=== PATIENT | female | born 1930 | race Caucasian/White ===

== ENCOUNTER 2019-03-24 09:32 | Inpatient (IN) | payer MEDICARE ==
[2019-03-24] MEDS ORDERED: Diltiazem 125 MG/25 ML ONE (09:52)
[2019-03-24] MEDS ORDERED: Diltiazem 125 MG in Sodium Chloride 0.9% 100 ML IVPB SCH ×2 (10:30→17:16)
--- NOTE | 2019-03-24 10:33 | RAD ---
XR Chest 1 View Portable HISTORY: Syncope. A. fib. COMPARISON: 09/19/2016 study FINDINGS: Heart size appears slightly enlarged. There are atherosclerotic changes of aorta. The lungs are clear of infiltrates. There are no signs of failure. IMPRESSION: Borderline to minimal cardiomegaly.
[2019-03-24 10:36] LABS: #Eosinphils 0.1 thou/uL (0.0-0.7); #Lymphocytes 2.3 thou/uL (1.20-3.40); #Monocytes 0.7 thou/uL (0.11-0.59); #Neutrophils 8.3 thou/uL (1.40-6.50); %Basophils 0.3 % (0.0-1.0); %Eosinophils 1.2 % (0.0-10.0); %Lymphocytes 19.7 % (21.0-51.0); %Monocytes 6.2 % (0.0-10.0); %Neutrophils 72.6 % (42.0-75.0); Hemoglobin 11.8 g/dL (12.0-16.0); Mean Corpuscular HGB CONC 34.1 g/dL (32.0-36.0); Mean Corpuscular Volume 96.8 fL (78.0-98.0); Mean Platelet Volume 8.2 fL (7.4-10.4); Platelet Count 135 thou/uL (130-400); RBC Distribution Width 13.7 % (11.5-14.5); Red Blood Cell (RBC) Count 3.56 mill/uL (4.20-5.40); White Blood Cell (WBC) Count 11.5 thou/uL (4.8-10.8)
[2019-03-24 10:40] LABS: Bilirubin Negative (Negative); Blood, Urine Negative (Negative); Clarity Clear (Clear); Glucose, Urine (Dipstick) 100 mg/dL (Negative); Leukocyte Small (Negative); Nitrite Negative (Negative); Protein, Urine (Dipstick) Negative (Neg-Trace); Urobilinogen 0.2 mg/dL (0.2-1.0)
[2019-03-24 10:41] LABS: Other Microscopic Description Less than 2 mL rec'd
[2019-03-24 10:42] LABS: Bacteria/HPF None Seen HPF (None Seen); Hyaline Casts/LPF NONE SEEN LPF (0-3 Hyaline); RBC/HPF None Seen HPF (0-3); Renal Epithelial 0-3 HPF (0-3); Squamous Epithelial 0-3 HPF (0-3); Transitional Epithelial 0-3 HPF (0-3); WBC/HPF 0-3 HPF (0-3)
[2019-03-24 10:59] LABS: INR-International Normal Ratio 1.1; Prothrombin Time 13.9 SEC (12.0-14.7)
[2019-03-24 11:03] LABS: ALT (SGPT) 13 U/L (8-55); AST (SGOT) 9 U/L (5-34); Albumin 3.1 g/dL (3.4-4.8); Alkaline Phosphatase 100 U/L (40-150); Anion Gap 17 mmol/L (10-20); BUN (Urea Nitrogen) 21 mg/dL (9.8-20.1); Bilirubin, Total 0.5 mg/dL (0.2-1.2); CK (CPK) 25 U/L (29-168); Calc. Creatinine Clearance 0 mL/min (70-130); Calcium 7.9 mg/dL (7.8-10.44); Carbon Dioxide 18 mmol/L (23-31); Chloride 102 mmol/L (98-107); Estimated GFR-MDRD 46; Globulin 2.1 g/dL (2.4-3.5); Glucose 300 mg/dL (83-110); Lipase 16 U/L (8-78); Potassium 3.6 mmol/L (3.5-5.1); Protein, Total 5.2 g/dL (6.0-8.3); Sodium 133 mmol/L (136-145)
--- NOTE | 2019-03-24 11:07 | PDOC.FPRHP ---
- History of Present Illness Chief Complaint: Weakness, dizziness History of Present Illness: Ms Rodriguez is an 88yo female with pmh of HTN, HLD, DM and bullous pemphigoid who presented to ED by EMS for dizziness and weakness that started 03/20 and worsened over the last day to the point her daughter could not transfer her. She typically ambulates with walker on her own but has become too short of breath and weak to walk. She was recently admitted to [facility] and was diagnosed with bullous pemphigoid and treated for WANDA/hyperkalemia. Kidney function returned to baseline and she was discharged March 11. Her daughter has been taking care of her since. Reports she developed fatigue Monday, saw PCP and was diagnosed with hypothyroidism for which she started taking Synthroid for on Friday 03/23. Her symptoms worsened yesterday. Endorses orthopnea, paroxysmal noctural dyspnea, b/l LE edema. Denies fevers, chills. No changes in mental status. Initially in Afib with RVR at presentation to ED, now rate controlled on Dilt gtt at 5, pt reports she feels much better. PCP: Dr Shelley in [place], [place] ED Course: Initial HR 160-180's. Currently 90's on Dilt gtt. Requiring 2L NC. Given ASA, bacitracin Zinc, 1L NS. EKG: Initial EKG SVT, #2 Afib with RVR. - Allergies/Adverse Reactions Allergies Allergy/AdvReac Type Severity Reaction Status Date / Time No Known Allergies Allergy Unverified 03/24/19 10:21 - Home Medications Medication Instructions Recorded Confirmed Type Aspirin [Ecotrin Low Strength] 81 mg PO QAM 03/24/19 03/24/19 History Niacin 100 mg PO BID 03/24/19 03/24/19 History Triamcinolone Acetonide 1 g TOP BID 03/24/19 03/24/19 History [Triamcinolone Acetonide 0.1% Ointment] Verapamil ER [Calan ER] 180 mg PO HS 03/24/19 03/24/19 History predniSONE [Prednisone] 20 mg PO QAM 03/24/19 03/24/19 History - History PMHx: HLD, HTN, DM, bullous pemphigoid, new dx of hypothyroidism PSHx: None FHx: CHF Social: Denies tobacco, alcohol or drug use. Currently living with daughter with services. - Review of Systems General: reports: fatigue. denies: fever/chills, weight/appetite/sleep changes Eyes: denies: eye pain, vision changes ENT: denies: nasal congestion, rhinorrhea Respiratory: reports: shortness of breath. denies: cough, congestion Cardiovascular: reports: edema, paroxysmal nocturnal dyspnea, orthopnea. denies : chest pain, palpitation Gastrointestinal: reports: constipation, abdominal pain. denies: nausea, vomiting, diarrhea Genitourinary: denies: dysuria, other (hematuria) Skin: reports: lesions (bullous pemphigoid). denies: rashes Musculoskeletal: reports: pain (under breasts), swelling Neurological: reports: weakness (generalized). denies: numbness, syncope - Vital signs BP: 142/80 HR: 90 RR: 22 Tmax: 98.0 Pox: 96% on 2L Wt: 72.6kg - Physical Exam Constitutional: NAD, awake, alert and oriented, well developed HEENT: normocephalic and atraumatic, PERRLA, conjunctiva clear, no scleral icterus, MMM, oropharynx clear Neck: supple, trachea midline, no JVD, no bruits Heart: RRR, no murmurs/rubs/gallops, other (2+ pitting edema to knees bilaterally) Lungs: CTAB Abdomen: soft, bowel sounds present, other (moderately tender to palpation in lower quadrants. No rigidity or rebound.) Musculoskeletal: normal structure, normal tone, ROM grossly normal Neurological: no focal deficit Skin: other (wounds under bilateral breasts and pannus with serous drainage on dressings. Tender to palpation. No surrounding erythema) Psychiatric: normal mood and affect, good judgment and insight, intact recent and remote memory FMR H&P: Results - Labs Result Diagrams: 03/24/19 10:22 03/24/19 10:22 Lab results: WBC 11.5 thou/uL (4.8-10.8) H 03/24/19 10:22 Hgb 11.8 g/dL (12.0-16.0) L 03/24/19 10:22 Hct 34.5 % (36.0-47.0) L 03/24/19 10:22 MCV 96.8 fL (78.0-98.0) 03/24/19 10:22 Plt Count 135 thou/uL (130-400) 03/24/19 10:22 Neutrophils % 72.6 % (42.0-75.0) 03/24/19 10:22 Sodium 133 mmol/L (136-145) L 03/24/19 10:22 Potassium 3.6 mmol/L (3.5-5.1) 03/24/19 10:22 Chloride 102 mmol/L (98-107) 03/24/19 10:22 Carbon Dioxide 18 mmol/L (23-31) L 03/24/19 10:22 BUN 21 mg/dL (9.8-20.1) H 03/24/19 10:22 Creatinine 1.13 mg/dL (0.6-1.1) H 03/24/19 10:22 Glucose 300 mg/dL (83-110) H 03/24/19 10:22 Lactic Acid 2.4 mmol/L (0.5-2.2) H 03/24/19 10:39 Calcium 7.9 mg/dL (7.8-10.44) 03/24/19 10:22 Total Bilirubin 0.5 mg/dL (0.2-1.2) 03/24/19 10:22 AST 9 U/L (5-34) 03/24/19 10:22 ALT 13 U/L (8-55) 03/24/19 10:22 Alkaline Phosphatase 100 U/L (40-150) 03/24/19 10:22 Creatine Kinase 25 U/L (29-168) L 03/24/19 10:22 Serum Total Protein 5.2 g/dL (6.0-8.3) L 03/24/19 10:22 Albumin 3.1 g/dL (3.4-4.8) L 03/24/19 10:22 Lipase 16 U/L (8-78) 03/24/19 10:22 Urine Ketones Negative mg/dL (Negative) 03/24/19 10:07 Urine Blood Negative (Negative) 03/24/19 10:07 Urine Nitrite Negative (Negative) 03/24/19 10:07 Ur Leukocyte Esterase Small (Negative) H 03/24/19 10:07 Urine RBC None Seen HPF (0-3) 03/24/19 10:07 Urine WBC 0-3 HPF (0-3) 03/24/19 10:07 Ur Squamous Epith Cells 0-3 HPF (0-3) 03/24/19 10:07 Urine Bacteria None Seen HPF (None Seen) 03/24/19 10:07 - EKG Interpretation EKG: Rate (beats per minute): 186, supraventricular tachycardia, Conesus normal, Clinical impression:, abnormal EKG, marked ST abnormality, possible inferolateral subendocardial injury. 12 lead EKG interpreted by Emergency Department Physician at time of study, 12 lead EKG shows, atrial fibrillation with rapid ventricular response, Rate ( beats per minute): 124, Conesus normal, Clinical impression:, abnormal EKG, ST & T wave abnormality, consider inferior ischemia or digitalis effect. ST & T wave abnormality, consider anterior ischemia or digitalis effect. - Radiology Interpretation CT scan - chest Status: report reviewed by me Additional comment: Borderline cardiomegaly FMR H&P: A/P - Problem List (1) Atrial fibrillation with RVR Current Visit: No Status: Acute Code(s): I48.91 - UNSPECIFIED ATRIAL FIBRILLATION (2) Hypothyroidism Current Visit: No Status: Acute Code(s): E03.9 - HYPOTHYROIDISM, UNSPECIFIED (3) Hyponatremia Current Visit: No Status: Acute Code(s): E87.1 - HYPO-OSMOLALITY AND HYPONATREMIA (4) Normocytic anemia Current Visit: No Status: Acute Code(s): D64.9 - ANEMIA, UNSPECIFIED (5) Bullous pemphigoid Current Visit: No Status: Acute Code(s): L12.0 - BULLOUS PEMPHIGOID (6) HTN (hypertension) Current Visit: No Status: Acute Code(s): I10 - ESSENTIAL (PRIMARY) HYPERTENSION (7) HLD (hyperlipidemia) Current Visit: No Status: Acute Code(s): E78.5 - HYPERLIPIDEMIA, UNSPECIFIED (8) Acute respiratory failure with hypoxia Current Visit: No Status: Acute Code(s): J96.01 - ACUTE RESPIRATORY FAILURE WITH HYPOXIA (9) WANDA (acute kidney injury) Current Visit: No Status: Acute Code(s): N17.9 - ACUTE KIDNEY FAILURE, UNSPECIFIED (10) Leukocytosis Current Visit: No Status: Acute Code(s): D72.829 - ELEVATED WHITE BLOOD CELL COUNT, UNSPECIFIED (11) Insulin dependent diabetes mellitus Current Visit: No Status: Acute Code(s): E11.9 - TYPE 2 DIABETES MELLITUS WITHOUT COMPLICATIONS; Z79.4 - RIDING SILKS CUSTODIAN (CURRENT) USE OF INSULIN - Plan Ms Rodriguez is an 88yo female with pmh of HTN, HLD, DM and bullous pemphigoid admitted for Afib with RVR Afib with RVR - Reports no hx of afib - Appears to be volume overloaded with edema, new O2 requirement - Currently rate controlled with Dilt gtt at 5 - Initial EKG with SVT, repeat EKG showed Afib with RVR - Echo ordered - Ordered TSH, Mg, Ph, BNP - Admit to tele Acute hypoxic respiratory failure likely 2/2 pulm congestion related to Afib with RVR - Continue O2, wean as tolerated - Should improve with rate control Indeterminate Troponin - Continue to trend WANDA likely prerenal - Cr 1.13 - Continue to monitor with daily BMP - Avoid nephrotoxic medications 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, pt prev on Metformin in addition but stopped during recent hospitalization likely due to kidney function - CC diet - ACHS accuchecks, hypoglycemic protocol - Ordered A1c Normocytic Anemia - Hgb 11.8 Hypothyroidism - Recently diagnosed, started medications 03/23 - Ordered TSH Constipation - Will start Miralax and Colace MARY Leukocytosis - Likely 2/2 steroid use Hyponatremia - 133, continue to monitor with daily BMP Bullous Pemphigoid - Wound care consulted HTN - Continue home meds HLD - Continue home meds Code Status: FULL DVT ppx: Lovenox PCP: Dr Shelley in [place], [place] FMR H&P: Upper Level - Plan Date/Time: 03/24/19 1107 I, [], have evaluated this patient and agree with findings/plan as outlined by fashion buying internship resident. Pertinent changes/additions are listed here.
--- NOTE | 2019-03-24 11:07 | CT ---
Exam: Head CT without contrast HISTORY: Altered mental status COMPARISON: 09/19/2016 FINDINGS: Hemorrhage: No intraparenchymal hemorrhage or extra-axial hematoma. Brain parenchyma: Cortical macdonald-white matter differentiation is preserved. No mass effect or midline shift. Basilar cisterns are patent.White matter hypodensities due to chronic small vessel ischemic changes. Ventricular system: Ventricles and sulci are patent and symmetric. Calvarium: Intact. Sinuses and mastoid air cells: Adequate mastoid air cell aeration. Mucous retention cyst in the right maxillary sinus. Mixed attenuation density in the right sphenoid sinus likely representing inspissated mucus/secretions versus a fungal infection. Atherosclerosis of cavernous carotid arteries bilaterally IMPRESSION: No acute intracranial process.
[2019-03-24 11:20] LABS: CKMB 1.6 ng/mL (0-6.6)
[2019-03-24 13:37] LABS: Magnesium 1.4 mg/dL (1.6-2.6); Phosphorus 3.4 mg/dL (2.3-4.7)
[2019-03-24 15:27] LABS: Lactic Acid 1.8 mmol/L (0.5-2.2)
[2019-03-24] MEDS ORDERED: Ondansetron ODT 4 MG TAB SL PRN (16:28)
[2019-03-24] MEDS ORDERED: Acetaminophen 325 MG TAB PO PRN ×2 (16:28→17:16)
[2019-03-24] MEDS ORDERED: Ondansetron PF 4 MG/2 ML Vial IVP PRN (16:28)
[2019-03-24 16:58] LABS: Troponin I 0.102 ng/mL (< 0.028)
[2019-03-24] MEDS ORDERED: Dextrose 50% Abboject 50 ML SYRINGE SLOW IVP PRN (17:16)
[2019-03-24] MEDS ORDERED: Dextrose 5% in Water 1,000 ML IV PRN (17:16)
[2019-03-24] MEDS ORDERED: Senokot S 8.6-50 MG TAB PO PRN (17:16)
[2019-03-24] MEDS ORDERED: Magnesium 2 GM/50 ML 2 GM in Premix Bag 1 BAG IVPB SCH (17:30)
[2019-03-24 18:07] LABS: Hemoglobin A1c 9.1 % (4.0-6.0)
[2019-03-24] MEDS: Sodium Chloride 0.9% 1,000 ML IV SCH (18:24)
[2019-03-25 04:57] LABS: #Eosinphils 0.2 thou/uL (0.0-0.7); #Lymphocytes 2.5 thou/uL (1.20-3.40); #Monocytes 0.6 thou/uL (0.11-0.59); #Neutrophils 7.6 thou/uL (1.40-6.50); %Basophils 0.1 % (0.0-1.0); %Eosinophils 1.9 % (0.0-10.0); %Lymphocytes 22.5 % (21.0-51.0); %Monocytes 5.6 % (0.0-10.0); %Neutrophils 69.9 % (42.0-75.0); Hemoglobin 11.9 g/dL (12.0-16.0); Mean Corpuscular HGB CONC 33.5 g/dL (32.0-36.0); Mean Corpuscular Hemoglobin 32.8 pg (27.0-31.0); Mean Corpuscular Volume 97.9 fL (78.0-98.0); Mean Platelet Volume 7.8 fL (7.4-10.4); Platelet Count 125 thou/uL (130-400); RBC Distribution Width 14.1 % (11.5-14.5); Red Blood Cell (RBC) Count 3.62 mill/uL (4.20-5.40); White Blood Cell (WBC) Count 10.9 thou/uL (4.8-10.8)
[2019-03-25 05:16] LABS: Anion Gap 13 mmol/L (10-20); BUN (Urea Nitrogen) 20 mg/dL (9.8-20.1); Calc. Creatinine Clearance 65 mL/min (70-130); Calcium 8.2 mg/dL (7.8-10.44); Carbon Dioxide 20 mmol/L (23-31); Estimated GFR-MDRD 59; Glucose 235 mg/dL (83-110); Magnesium 1.9 mg/dL (1.6-2.6); Potassium 3.8 mmol/L (3.5-5.1)
[2019-03-25 05:32] LABS: Chloride 105 mmol/L (98-107); Sodium 134 mmol/L (136-145)
--- NOTE | 2019-03-25 06:24 | PDOC.FM ---
- Subjective Subjective: Pt states she did not sleep well last night and complains of continued orthopnea. Daughter notes that pt becomes quite short of breath with any ambulation. She denies any chest pain or palpitations this AM. - Objective Vital Signs & Weight: Vital Signs (12 hours) Temp Pulse Resp BP Pulse Ox 03/25/19 03:38 97.7 F 84 17 138/61 97 03/25/19 00:00 87 144/67 H 03/24/19 20:00 98 F 82 18 106/62 93 L Weight Weight 93.259 kg Result Diagrams: 03/25/19 04:14 03/25/19 04:14 Phys Exam - Physical Examination Respiratory: no wheezing Crackles at bilateral bases, respiratory distress improves when sitting up Cardiovascular: RRR, no significant murmur Gastrointestinal: soft, non-tender Musculoskeletal: pulses present, edema present (2+ bilateral LE) Neurological: non-focal, normal sensation Psychiatric: normal affect, A&O x 3 Deviation from normal: mildly wheeping lesions to lower chest and abdomen Dx/Plan (1) Atrial fibrillation with RVR Code(s): I48.91 - UNSPECIFIED ATRIAL FIBRILLATION Status: Resolved (2) WANDA (acute kidney injury) Code(s): N17.9 - ACUTE KIDNEY FAILURE, UNSPECIFIED Status: Resolved (3) Acute respiratory failure with hypoxia Code(s): J96.01 - ACUTE RESPIRATORY FAILURE WITH HYPOXIA Status: Acute (4) Bullous pemphigoid Code(s): L12.0 - BULLOUS PEMPHIGOID Status: Acute (5) Hypothyroidism Code(s): E03.9 - HYPOTHYROIDISM, UNSPECIFIED Status: Acute (6) Insulin dependent diabetes mellitus Code(s): E11.9 - TYPE 2 DIABETES MELLITUS WITHOUT COMPLICATIONS; Z79.4 - SPACE OPERATIONS OFFICER (CURRENT) USE OF INSULIN Status: Acute - Plan Plan: Afib with RVR - Reports no hx of afib - Appears to be volume overloaded with edema and orthopnea, new O2 requirement - Currently rate controlled with Dilt gtt at 5 - Initial EKG with SVT, repeat EKG showed Afib with RVR - Echo today - BNP 629, likely fluid overloaded with edema, will diurese today - Admit to tele Acute hypoxic respiratory failure likely 2/2 pulm congestion related to Afib with RVR/CHF - Continue O2, wean as tolerated - Should improve with rate control and diuresis Congestive heart failure - likely diagnosis considering new O2 requirements, orthopnea, and peripheral edema - could be cause of new onset Afib - Echo today to assess - will initiate lasix diuresis this morning Indeterminate Troponin - Continue to trend WANDA likely prerenal - Cr 1.13 -> 0.91 - Continue to monitor with daily BMP - Avoid nephrotoxic medications 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, pt prev on Metformin in addition but stopped during recent hospitalization likely due to kidney function - CC diet - ACHS accuchecks, hypoglycemic protocol - Ordered A1c - Expect elevated glucose levels d/t steroid use Normocytic Anemia - Hgb 11.8 Hypothyroidism - Recently diagnosed, started medications 03/23 - TSH and FT4 is nml Constipation - Will start Miralax and Colace MARY Leukocytosis - Likely 2/2 steroid use Hyponatremia - 134, continue to monitor with daily BMP Bullous Pemphigoid - Wound care consulted HTN - Continue home meds HLD - Continue home meds Addendum - Attending - Attending Attestation Date/Time: 03/25/19 1300 I personally evaluated the patient and discussed the management with Dr. Payan. I agree with the History, Examination, Assessment and Plan documented above with any addition or exceptions noted below. The patient's A.fib has converted to a sinus rhythm. Will transition back to pt 's po verapamil. With elevated bnp, edema and dyspnea, suspect new onset chf. Echo is pending. Will begin IV lasix, strict I/O's. Try to wean O2 as tolerated.
[2019-03-25] MEDS: Sodium Chloride 0.9% 1,000 ML IV SCH ×2 (09:00→23:19)
[2019-03-25] MEDS ORDERED: Verapamil 80 MG TAB PO SCH (10:30)
[2019-03-25] MEDS: Insulin Glargine 45 UNITS in Pre-Filled Syringe 1 EACH SC SCH (10:40)
[2019-03-25] MEDS: Enoxaparin Sodium 40 MG/0.4 ML SYRINGE SC SCH (10:42)
[2019-03-25] MEDS: Polyethylene Glycol 3350 17 GM Packet PO SCH (10:42)
[2019-03-25] MEDS: predniSONE 20 MG TAB PO SCH (10:43)
[2019-03-25] MEDS: Aspirin 81 mg Enteric Coated Tablet PO SCH (10:43)
[2019-03-25] MEDS: HumaLOG 300 UNITS/3 ML VIAL SC PRN ×2 (10:47→17:21)
[2019-03-25] MEDS ORDERED: Furosemide 20 MG/2 ML VIAL SLOW IVP SCH (11:15)
[2019-03-25] MEDS: Furosemide 20 MG/2 ML VIAL SLOW IVP SCH (14:40)
--- NOTE | 2019-03-25 16:17 | HP ---
ADDENDUM: This is an addendum to the history and physical. Please see the note from Dr. Court Mcdermott for which I agree. The patient was seen, evaluated, discussed and examined with the residents. HISTORY OF PRESENT ILLNESS: This is an 88-year-old female being brought in for [facility]. She normally sees a doctor in [place]. The history is that a couple weeks ago she was at [facility], although a couple times the daughter said [facility] for sounds like may be dehydration and acute kidney injury and workup for the numerous source she had all-over the body that eventually was diagnosed with bullous pemphigoid. She is on steroids now as a type 2 diabetic and felt like her sugars have been little bit out of control. They do get additional history though that in the last couple years, she intermittently is having bouts of extreme shortness of breath. No palpitations, syncope, or near syncope. But just in general feeling weaker with time, has never had a cardiac issue or problem as far as they know, but when she initially came in here, she was in atrial fibrillation with rapid ventricular response, pulse rate as high as 160s to 180s, was put on a diltiazem drip at 5 and is actually now already converted to normal sinus rhythm, although she still has a lot of ectopic beats given nasal cannula O2 for low oxygen as well. Maybe having a little bit of orthopnea, typically sleeping in a recliner, had an angle to help, but then only describe a lot of edema, her chest pain. ALLERGIES: ALL PER DR. MCDERMOTT' HISTORY AND PHYSICAL FOR WHICH I AGREE. PAST MEDICAL HISTORY: All per Dr. Mcdermott' history and physical for which I agree. PAST SURGICAL HISTORY: All per Dr. Mcdermott' history and physical for which I agree. FAMILY HISTORY: All per Dr. Mcdermott' history and physical for which I agree. SOCIAL HISTORY: All per Dr. Mcdermott' history and physical for which I agree. REVIEW OF SYSTEMS: All per Dr. Mcdermott' history and physical for which I agree. PHYSICAL EXAMINATION: VITAL SIGNS: Blood pressure 130s over 60s when I was in the room. Pulse rate was at 89 on the monitor, it was like normal sinus rhythm with occasional ectopic beats. Currently, her O2 sats 98% on 2 L, breathing comfortably. No apparent distress. HEENT: Conjunctivae not particularly pale. Anicteric. Moist mucosa. NECK: No JVD, lymphadenopathy, or bruits. CHEST: Slight decreased breath sounds. HEART: Regular rate and rhythm with ectopic beats. I could not appreciate murmurs. ABDOMEN: Benign. EXTREMITIES: Show trace edema. DIAGNOSTIC IMPRESSION: EKG was read as atrial fibrillation, rapid ventricular response. Pulse rate in the 120s, although lateral ischemia. LABORATORY DATA: Significant for slight white count of 11, hemoglobin 11, BUN 21, creatinine of 1.1. Sugar was high at 300. Sodium minimally low at 133. Lactic acid slightly high at 2.4. Urine looks pretty benign. ASSESSMENT AND PLAN: 1. Rapid ventricular response with atrial fibrillation, now back to normal sinus rhythm on a Cardizem drip. Plans; put her up on tele, may switch the Cardizem just p.o., now she is back in sinus rhythm. We will get Cardiology involved. 2. Severe weakness, unclear if it is all from cardiac issues while we are dealing with. Certainly, we will get an echocardiogram. 3. Hyponatremia. Watch closely. 4. Mild anemia. 5. Bullous pemphigoid. We will continue steroids. 6. Diabetes, now on steroids; certainly, do her daily Lantus and a sliding scale. Job ID: [id number]
[2019-03-26] MEDS: Furosemide 20 MG/2 ML VIAL SLOW IVP SCH ×2 (05:24→14:52)
--- NOTE | 2019-03-26 05:59 | PDOC.FM ---
- Subjective Subjective: Pt states she slept much better last night. States her breathing has improved and she is not noticing any orthopnea. Still notes some dypsnea on exertion but feels this has improved as well. Pt had a short run of SVT in the early am, pt feels this was after ambulating to the restroom without her O2. - Objective MAR Reviewed: Yes Vital Signs & Weight: Vital Signs (12 hours) Temp Pulse Resp BP Pulse Ox 03/26/19 04:00 97.3 F L 63 20 144/62 H 92 L 03/25/19 19:39 97.4 F L 97 18 136/63 98 Weight Admit Weight 92.306 kg Weight 91.172 kg I&O: 03/24/19 03/25/19 03/26/19 06:59 06:59 06:59 Intake Total 1010 1880 Output Total 0 1900 Balance 1010 -20 Result Diagrams: 03/26/19 06:36 03/26/19 06:18 Phys Exam - Physical Examination Constitutional: NAD HEENT: moist MMs Neck: supple, full ROM Respiratory: no wheezing Fine crackles in bilateral bases Cardiovascular: RRR, no significant murmur Gastrointestinal: soft, non-tender Musculoskeletal: edema present (1+ in bilateral LE) Neurological: moves all 4 limbs Psychiatric: normal affect, A&O x 3 Deviation from normal: Healing wounds to chest and abdomen from prev bollous pemphigoid Dx/Plan (1) Acute respiratory failure with hypoxia Code(s): J96.01 - ACUTE RESPIRATORY FAILURE WITH HYPOXIA Status: Acute (2) Bullous pemphigoid Code(s): L12.0 - BULLOUS PEMPHIGOID Status: Acute (3) HTN (hypertension) Code(s): I10 - ESSENTIAL (PRIMARY) HYPERTENSION Status: Acute (4) Insulin dependent diabetes mellitus Code(s): E11.9 - TYPE 2 DIABETES MELLITUS WITHOUT COMPLICATIONS; Z79.4 - LOW ALTITUDE AIR DEFENSE OFFICER (CURRENT) USE OF INSULIN Status: Acute (5) Leukocytosis Code(s): D72.829 - ELEVATED WHITE BLOOD CELL COUNT, UNSPECIFIED Status: Acute - Plan Plan: Afib with RVR - Reports no hx of afib - Appears to be volume overloaded with edema and orthopnea, new O2 requirement - Currently rate controlled with Verapamil BID - Initial EKG with SVT, repeat EKG showed Afib with RVR, resolved after CCB tx, short run of SVT overnight - Echo to be read today - BNP 629, likely fluid overloaded with edema, will continue diuresis - Continue tele Acute hypoxic respiratory failure likely 2/2 pulm congestion related to Afib with RVR/CHF - Continue O2, wean as tolerated - Should improve with rate control and diuresis Congestive heart failure - likely diagnosis considering new O2 requirements, orthopnea, and peripheral edema - could be cause of new onset Afib - Echo yesterday, results pending - will continue diuresis Indeterminate Troponin - Trend was negative WANDA likely prerenal - Cr 1.13 -> 0.91 - Continue to monitor with daily BMP - Avoid nephrotoxic medications 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, pt prev on Metformin in addition but stopped during recent hospitalization likely due to kidney function - CC diet - ACHS accuchecks, hypoglycemic protocol - Ordered A1c - Expect elevated glucose levels d/t steroid use Normocytic Anemia - Hgb 11.8 Hypothyroidism - Recently diagnosed, started medications 03/23 - TSH and FT4 is nml Constipation - Will start Miralax and Colace MARY Leukocytosis - Likely 2/2 steroid use Hyponatremia - 134, continue to monitor with daily BMP Bullous Pemphigoid with secondary infection - Wound care consulted - Continue steroid taper - Start Levoquin 500IV daily, abx course 7-10 days HTN - Continue home meds HLD - Continue home meds Dispo: Stable, gradually improving LOS: Expect 2-3 additional days Addendum - Attending - Attending Attestation Date/Time: 03/26/19 1757 I personally evaluated the patient and discussed the management with Dr. Mcgrath. I agree with the History, Examination, Assessment and Plan documented above with any addition or exceptions noted below. The patient's lower extremity edema is improving. Will continue IV lasix. Awaiting echo result. Wean O2 as tolerated. Starting antibiotics for bullous pemphigoid with superimposed infection.
[2019-03-26 06:40] LABS: Anion Gap 17 mmol/L (10-20); BUN (Urea Nitrogen) 13 mg/dL (9.8-20.1); Calc. Creatinine Clearance 77 mL/min (70-130); Carbon Dioxide 19 mmol/L (23-31); Chloride 106 mmol/L (98-107); Estimated GFR-MDRD 73; Glucose 78 mg/dL (83-110); Potassium 3.9 mmol/L (3.5-5.1); Sodium 138 mmol/L (136-145)
[2019-03-26 06:45] LABS: #Basophils 0.1 thou/uL (0.0-0.2); #Eosinphils 0.3 thou/uL (0.0-0.7); #Lymphocytes 2.5 thou/uL (1.20-3.40); #Monocytes 0.7 thou/uL (0.11-0.59); #Neutrophils 8.9 thou/uL (1.40-6.50); %Basophils 0.4 % (0.0-1.0); %Eosinophils 2.2 % (0.0-10.0); %Monocytes 5.2 % (0.0-10.0); %Neutrophils 72.1 % (42.0-75.0); Hemoglobin 12.6 g/dL (12.0-16.0); Mean Corpuscular HGB CONC 33.3 g/dL (32.0-36.0); Mean Corpuscular Hemoglobin 32.6 pg (27.0-31.0); Mean Corpuscular Volume 98.1 fL (78.0-98.0); Mean Platelet Volume 7.9 fL (7.4-10.4); Platelet Count 168 thou/uL (130-400); RBC Distribution Width 14.3 % (11.5-14.5); Red Blood Cell (RBC) Count 3.86 mill/uL (4.20-5.40); White Blood Cell (WBC) Count 12.3 thou/uL (4.8-10.8)
[2019-03-26] MEDS: Lisinopril 2.5 MG TAB PO SCH (08:41)
[2019-03-26] MEDS: Enoxaparin Sodium 40 MG/0.4 ML SYRINGE SC SCH (08:41)
[2019-03-26] MEDS: Aspirin 81 mg Enteric Coated Tablet PO SCH (08:44)
[2019-03-26] MEDS: predniSONE 20 MG TAB PO SCH (08:45)
[2019-03-26] MEDS: Insulin Glargine 45 UNITS in Pre-Filled Syringe 1 EACH SC SCH (10:05)
[2019-03-26] MEDS: Polyethylene Glycol 3350 17 GM Packet PO SCH (12:51)
[2019-03-26] MEDS: HumaLOG 300 UNITS/3 ML VIAL SC PRN ×2 (13:03→21:24)
[2019-03-26] MEDS ORDERED: Adenosine 6 MG/2 ML VIAL ONE (15:52)
--- NOTE | 2019-03-26 16:32 | PDOC.EVN ---
Event Note - Event Note Event Note: Neli lópez called @ approx 1630 for sustained SVT and hypotension. Pt reported no CP SOB; however, did feel lightheaded. Vitals showed HR @ 175, BP 90s/50s and O2 89%. Bedside EKG confirmed SVT. Pt had attempted valsalva prior to physician arrival. Pt remained in SVT and mildly hypotensive. As such 6mg IV adenosine was given and pt converted to NSR shortly after with a rate of 95. She was given 500mL bolus of NS. Labs were drawn including cardiac enzymes, CBC , CMP, Mag and Phos. Results of labwork are currently pending. Repeat BP after conversion to SR showed BP 110s/60s. Cont telemetry monitoring.
[2019-03-26 16:57] LABS: Magnesium 1.7 mg/dL (1.6-2.6); Phosphorus 2.7 mg/dL (2.3-4.7)
[2019-03-26] MEDS ORDERED: HumaLOG 300 UNITS/3 ML VIAL SC SCH (21:00)
[2019-03-27 05:13] LABS: #Eosinphils 0.2 thou/uL (0.0-0.7); #Lymphocytes 2.8 thou/uL (1.20-3.40); #Monocytes 0.6 thou/uL (0.11-0.59); #Neutrophils 7.8 thou/uL (1.40-6.50); %Basophils 0.3 % (0.0-1.0); %Eosinophils 2.1 % (0.0-10.0); %Lymphocytes 24.6 % (21.0-51.0); %Monocytes 5.4 % (0.0-10.0); %Neutrophils 67.6 % (42.0-75.0); Hemoglobin 11.8 g/dL (12.0-16.0); Mean Corpuscular HGB CONC 33.8 g/dL (32.0-36.0); Mean Corpuscular Hemoglobin 33.2 pg (27.0-31.0); Mean Platelet Volume 7.9 fL (7.4-10.4); Platelet Count 187 thou/uL (130-400); RBC Distribution Width 14.2 % (11.5-14.5); Red Blood Cell (RBC) Count 3.56 mill/uL (4.20-5.40); White Blood Cell (WBC) Count 11.5 thou/uL (4.8-10.8)
[2019-03-27 05:29] LABS: Anion Gap 11 mmol/L (10-20); BUN (Urea Nitrogen) 15 mg/dL (9.8-20.1); Calc. Creatinine Clearance 69 mL/min (70-130); Calcium 8.1 mg/dL (7.8-10.44); Carbon Dioxide 28 mmol/L (23-31); Chloride 102 mmol/L (98-107); Estimated GFR-MDRD 64; Glucose 83 mg/dL (83-110); Potassium 3.4 mmol/L (3.5-5.1); Sodium 138 mmol/L (136-145)
[2019-03-27] MEDS: Furosemide 20 MG/2 ML VIAL SLOW IVP SCH ×2 (05:57→14:27)
--- NOTE | 2019-03-27 07:29 | PDOC.FM ---
- Subjective Subjective: Pt was getting her bollous wounds dressed and experienced an episode of sustained SVT with hypotension yesterday afternoon around 1630 that converted appropriately with adenosine. Since then she has had several runs of SVT all lasting less than 25 seconds. Pt states that she rested well last night and she feels she is continuing to have improvement in her breathing. She is still on O2 at 2L and experiences increased dyspnea with exertion. - Objective MAR Reviewed: Yes Vital Signs & Weight: Vital Signs (12 hours) Temp Pulse Resp BP Pulse Ox 03/27/19 03:00 98.6 F 65 16 133/70 96 03/26/19 23:27 73 112/59 L 03/26/19 19:45 97.9 F 86 16 111/60 95 Weight Admit Weight 92.306 kg Weight 91.898 kg I&O: 03/26/19 03/27/19 03/28/19 06:59 06:59 06:59 Intake Total 1880 530 Output Total 1900 1150 Balance -20 -620 Result Diagrams: 03/27/19 04:26 03/27/19 04:26 Radiology: Echo yesterday: EF 60-65%, 1/3 diastolic dysfunction, dilated RV with reduced systolic function, moderate tricuspid regurgitation, RV pressure 50mmHg Phys Exam - Physical Examination Constitutional: NAD HEENT: moist MMs Neck: supple, full ROM Respiratory: no wheezing Very fine crackles at bases bilaterally Cardiovascular: RRR Gastrointestinal: soft, non-tender Musculoskeletal: pulses present, edema present (1+ on right, trace on left) Neurological: non-focal, moves all 4 limbs Psychiatric: normal affect, A&O x 3 Deviation from normal: Dressed bollous lesions to chest and abdomen Dx/Plan (1) Supraventricular tachycardia, paroxysmal Code(s): I47.1 - SUPRAVENTRICULAR TACHYCARDIA Status: Acute (2) Acute respiratory failure with hypoxia Code(s): J96.01 - ACUTE RESPIRATORY FAILURE WITH HYPOXIA Status: Acute (3) Bullous pemphigoid Code(s): L12.0 - BULLOUS PEMPHIGOID Status: Acute (4) HTN (hypertension) Code(s): I10 - ESSENTIAL (PRIMARY) HYPERTENSION Status: Acute (5) Insulin dependent diabetes mellitus Code(s): E11.9 - TYPE 2 DIABETES MELLITUS WITHOUT COMPLICATIONS; Z79.4 - OVER HAULER HELPER (CURRENT) USE OF INSULIN Status: Acute (6) Leukocytosis Code(s): D72.829 - ELEVATED WHITE BLOOD CELL COUNT, UNSPECIFIED Status: Acute - Plan Plan: Paroxysmal SVT, previously Afib RVR - Reports no hx of afib or arrhythmia - Volume overloaded with edema, elevated BNP, orthopnea with new O2 requirement - improving with diuresis - Currently rate controlled with Verapamil BID - Initial EKG with SVT, repeat EKG showed Afib with RVR, resolved after CCB tx, short runs of SVT, one sustained event that converted with adenosine - Echo: EF 60-65, 1/3 diastolic dysfunction, reduced RV systolic function - Continue tele - Cardiology consult pending for this am Acute hypoxic respiratory failure likely 2/2 pulm congestion related to Afib with RVR/CHF - Continue O2, wean as tolerated - Should improve with rate control and diuresis Congestive heart failure - likely diagnosis considering new O2 requirements, orthopnea, and peripheral edema - could be cause of new onset Afib/SVT - Echo as above - will continue diuresis Indeterminate Troponin - Trend was negative WANDA likely prerenal - resolved - Cr 1.13 -> 0.91 -> 0.84 - Continue to monitor with daily BMP - Avoid nephrotoxic medications 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, pt prev on Metformin in addition but stopped during recent hospitalization likely due to kidney function - CC diet - ACHS accuchecks, hypoglycemic protocol - Ordered A1c - Expect elevated glucose levels d/t steroid use Normocytic Anemia - Hgb 11.8 Hypothyroidism - Recently diagnosed, started medications 03/23 - TSH and FT4 is nml on admission Constipation - Will start Miralax and Colace MARY Leukocytosis - Steroid vs cutaneous infection - Trend WBC - Levaquin for positive cutaneous cultures Hyponatremia - resolved - 134 -> 138 Bullous Pemphigoid with secondary infection - Wound care consulted - Continue steroid taper - Start Levoquin 500IV daily, abx course 7-10 days HTN - Continue home meds HLD - Continue home meds Dispo: Stable, gradually improving LOS: Expect 2-3 additional days Addendum - Attending - Attending Attestation Date/Time: 03/27/19 1790 I personally evaluated the patient and discussed the management with Dr. Mcgrath. I agree with the History, Examination, Assessment and Plan documented above with any addition or exceptions noted below. Pt had SVT requiring adenosine yesterday. She has had a few more runs of svt overnight and this morning. Pt is feeling week. Echo shows diastolic dysfunction. Continue diuresis. Wean O2 as tolerated. Consulting cardiology.
[2019-03-27] MEDS ORDERED: Potassium Chloride 20 MEQ TAB PO SCH (09:00)
[2019-03-27] MEDS: Aspirin 81 mg Enteric Coated Tablet PO SCH (09:15)
[2019-03-27] MEDS: Lisinopril 2.5 MG TAB PO SCH (09:16)
[2019-03-27] MEDS: Insulin Glargine 45 UNITS in Pre-Filled Syringe 1 EACH SC SCH (09:16)
[2019-03-27] MEDS: Polyethylene Glycol 3350 17 GM Packet PO SCH (09:20)
[2019-03-27] MEDS: Enoxaparin Sodium 40 MG/0.4 ML SYRINGE SC SCH (09:20)
[2019-03-27] MEDS: predniSONE 20 MG TAB PO SCH (09:27)
--- NOTE | 2019-03-27 16:12 | CON ---
DATE OF CONSULTATION: REASON FOR CONSULTATION: SVT. HISTORY OF PRESENT ILLNESS: Ms. Fuchs is a pleasant 88-year-old woman with no previous history of underlying coronary artery disease. due to recent [place]. She developed SVT and was symptomatic. Heart rate was in the 180s. She became hypotensive. She then converted after about 30 minutes. She does continue to have intermittent episodes of SVT. PAST MEDICAL HISTORY: Bullous pemphigoid, diabetes mellitus, hyperlipidemia , hypertension, hypothyroidism. SOCIAL HISTORY: No current tobacco or alcohol use. PAST SURGICAL HISTORY: None. REVIEW OF SYSTEMS: A 10-point review of systems is reviewed as above, otherwise negative. PHYSICAL EXAMINATION: GENERAL: Patient is a pleasant woman who is in no acute distress. The patient appears their stated age. VITAL SIGNS: Blood pressure 132/68, pulse 89, temperature afebrile. NEUROLOGIC: The patient is alert and oriented x3 with no focal neurologic deficits. HEENT: Sclerae without icterus. Mouth has moist mucous membranes with normal pallor. NECK: No JVD. Carotid upstroke brisk. No bruits bilaterally. LUNGS: Clear to auscultation with unlabored respirations. BACK: No scoliosis or kyphosis. CARDIAC: Regular rate and rhythm with normal S1 and S2. No S3 or S4 noted. No significant rubs, murmurs, thrills, or gallops noted throughout the precordium. PMI is not displaced. There is no parasternal heave. ABDOMEN: Soft, nontender, nondistended. No peritoneal signs present. No hepatosplenomegaly. No abnormal striae. EXTREMITIES: 2+ femoral and 2+ dorsalis pedis pulses. No cyanosis, clubbing, or edema. SKIN: Bullous pemphigoid present on the lateral aspect of the left groin. PERTINENT LABORATORY DATA: Hemoglobin 11.8. Creatinine was 0.4. IMPRESSION: Supraventricular tachycardia. RECOMMENDATIONS: She will likely benefit from digoxin as well as a calcium-channel blockade. I did discuss case with the EP, who agreed to consult with Ms. Fuchs. I feel she may benefit from ablation and felt to be an appropriate candidate due to the duration. In addition, symptoms present with SVT. We will defer any further recommendations per Dr. Ernst Briseno. Job ID: [id number]
[2019-03-27] MEDS: HumaLOG 300 UNITS/3 ML VIAL SC PRN ×2 (17:15→20:41)
--- NOTE | 2019-03-27 19:45 | CON ---
DATE OF CONSULTATION: 03/27/2019 HISTORY OF PRESENT ILLNESS: I am seeing Ms. Rodriguez at our [facility] Telemetry Floor as an Electrophysiology life consultant regarding her SVT arrhythmias. Her problems are; 1. Recurrent and sustained narrow complex tachycardia with successful adenosine termination. One EKG this admission documents narrow complex SVT at 186 beats per minute with short RP interval. 2. Preserved LVEF at 60% to 65%, mild biatrial enlargement, mild MR, moderate TR, and moderate pulmonary hypertension on 2D echo on 03/25/2019. 3. History of diabetes. 4. History of hypertension. 5. History of hyperthyroidism, replaced. 6. History of obesity. 7. History of bullous pemphigoid. ALLERGIES: GLIPIZIDE, SULFA. MEDICATIONS: At home included, 1. Prednisone. 2. Verapamil 180 mg p.o. at bedtime ER. 3. Triamcinolone. 4. Niacin. 5. Aspirin. 6. Hydrocodone. 7. Ergocalciferol. 8. Calcium. 9. Insulin. 10. Linaclotide. 11. Levothyroxine. SUBJECTIVE: Ms. Rodriguez is here, admitted on the with recurrent dizziness, near syncopal spells, palpitations, and clear EKG documentation of narrow complex supraventricular tachycardia. These episodes have happened in the past, she is unclear for how long, possibly years, but has not been this severe than recently. Otherwise, she is feeling fair in between the bouts. She has no chest pains. No dizziness or loss of consciousness. No angina. No stroke-like symptoms. No neurological deficits. In the ER, she was put on a diltiazem drip and she converted fairly promptly. She has been recently evaluated at [facility] with her dermatologic issue, the bullous pemphigoid, which at that point, multiple medications were stopped. She is still on verapamil though for her blood pressure. Currently, she has no fever, chills or cough, and the bullous pemphigoid, although still bothering her and considering treatment for that. OBJECTIVE DATA: VITAL SIGNS: Blood pressure is 135/69, heart rate 90, respirations 18, temperature 98.1 degrees Fahrenheit. GENERAL: She is alert and oriented woman with elevated BMI, in no apparent distress. NECK: Supple. Jugular veins are not distended. CHEST: Coarse with crackles. HEART: Sounds are regular rate and rhythm. No murmur or gallop. ABDOMEN: Benign. Bowel sounds positive. EXTREMITIES: Lower extremities without edema, clubbing, or cyanosis. MUSCULOSKELETAL: No joint swelling or deformity. SKIN: With bullous rash under the breasts and in the abdomen, also in the left intertrigo area. LABORATORY DATA: White cell count is 11.5, hemoglobin 11.8, platelet count is 187. INR 1.1. Sodium 138, potassium 3.4, BUN is 15, creatinine 0.84. Troponins I's are 0.11, 0.13, and 0.102. Chest x-ray from 03/24 reveals borderline cardiomegaly. EKG again as noted above, initially a narrow complex SVT at 186 beats per minute with short RP interval. Subsequent EKG reveals normal narrow QRS, nonspecific ST-T changes only. Telemetry strips also reviewed revealing the same this morning, frequent recurrences, but shortly terminating atrial SVTs are seen. ASSESSMENT AND PLAN: Ms. Rodriguez is an 88-year-old woman with history of hypertension, diabetes, and bullous pemphigoid, who is presenting now with very symptomatic sustained supraventricular tachycardia episodes seems to be still recurrent, although not lasting much more than 25 minutes today. She has been placed on a high dose of verapamil. Cardiac workup so far reveals preserved cardiac function, but mild pulmonary hypertension. I discussed the etiology and potential treatment options for her supraventricular tachycardia with the patient and her daughter. We discussed the option of increasing atrioventricular lian blocking agents, which was already initiated and seems to have somewhat improved the episodes, but not completely eliminated them yet. We also discussed the option for EP study and ablation procedure. At this point, hence the dermatological issues and her advanced age, family would like to try medications first. Tentatively if these efforts fail, she could be considered for an ablation possibly early next week on 04/01/2019. On the other hand, if good success with increasing the verapamil or adding digoxin is achieved, she may be discharged and then I will be happy to see her as an outpatient. Thank you for allowing me to participate in the care of this patient. Job ID: [id number]
[2019-03-28 05:09] LABS: #Eosinphils 0.2 thou/uL (0.0-0.7); #Lymphocytes 2.7 thou/uL (1.20-3.40); #Monocytes 0.7 thou/uL (0.11-0.59); %Basophils 0.4 % (0.0-1.0); %Eosinophils 1.5 % (0.0-10.0); %Lymphocytes 25.5 % (21.0-51.0); %Monocytes 6.5 % (0.0-10.0); Mean Corpuscular HGB CONC 31.6 g/dL (32.0-36.0); Mean Corpuscular Hemoglobin 31.2 pg (27.0-31.0); Mean Corpuscular Volume 98.6 fL (78.0-98.0); Mean Platelet Volume 7.5 fL (7.4-10.4); Platelet Count 230 thou/uL (130-400); RBC Distribution Width 14.2 % (11.5-14.5); Red Blood Cell (RBC) Count 3.85 mill/uL (4.20-5.40); White Blood Cell (WBC) Count 10.7 thou/uL (4.8-10.8)
[2019-03-28 05:33] LABS: Anion Gap 12 mmol/L (10-20); BUN (Urea Nitrogen) 13 mg/dL (9.8-20.1); Calc. Creatinine Clearance 76 mL/min (70-130); Calcium 8.5 mg/dL (7.8-10.44); Carbon Dioxide 27 mmol/L (23-31); Chloride 103 mmol/L (98-107); Estimated GFR-MDRD 71; Potassium 3.3 mmol/L (3.5-5.1); Sodium 139 mmol/L (136-145)
[2019-03-28 05:38] LABS: Glucose 55 mg/dL (83-110)
[2019-03-28] MEDS: Furosemide 20 MG/2 ML VIAL SLOW IVP SCH (05:53)
--- NOTE | 2019-03-28 07:18 | PDOC.FM ---
- Subjective Subjective: Pt states she is feeling well this morning. She had one "episode" of feeling dizzy and uneasy when the nurses were changing her IV. Telemetry showed in increased amount of SVT during this time, longest run lasting 7 seconds. Pt was seen by cardiology and EP yesterday who plan to attempt medication changes through the weekend and proceed with an ablation come Monday, 04/01, if no improvement. - Objective MAR Reviewed: Yes Vital Signs & Weight: Vital Signs (12 hours) Temp Pulse Resp BP Pulse Ox 03/28/19 03:07 97.6 F 69 18 135/62 98 03/27/19 23:45 61 127/67 03/27/19 20:39 98.5 F 80 18 123/75 98 Weight Admit Weight 92.306 kg Weight 89.811 kg I&O: 03/27/19 03/28/19 03/29/19 06:59 06:59 06:59 Intake Total 530 170 Output Total 1150 700 Balance -620 -530 Result Diagrams: 03/28/19 04:48 03/28/19 04:48 Phys Exam - Physical Examination Constitutional: NAD HEENT: PERRLA, moist MMs Neck: full ROM Respiratory: no wheezing very fine crackles in bilateral bases Cardiovascular: RRR, no significant murmur Gastrointestinal: soft, non-tender Musculoskeletal: pulses present, edema present (trace edema bilaterally) Neurological: non-focal, moves all 4 limbs Psychiatric: normal affect, A&O x 3 Deviation from normal: Healing bullous lesions Dx/Plan (1) Supraventricular tachycardia, paroxysmal Code(s): I47.1 - SUPRAVENTRICULAR TACHYCARDIA Status: Acute (2) Acute respiratory failure with hypoxia Code(s): J96.01 - ACUTE RESPIRATORY FAILURE WITH HYPOXIA Status: Acute (3) Bullous pemphigoid Code(s): L12.0 - BULLOUS PEMPHIGOID Status: Acute (4) HTN (hypertension) Code(s): I10 - ESSENTIAL (PRIMARY) HYPERTENSION Status: Acute (5) Insulin dependent diabetes mellitus Code(s): E11.9 - TYPE 2 DIABETES MELLITUS WITHOUT COMPLICATIONS; Z79.4 - EXHAUST EMISSIONS AUTOMOTIVE TECHNICIAN (CURRENT) USE OF INSULIN Status: Acute (6) Leukocytosis Code(s): D72.829 - ELEVATED WHITE BLOOD CELL COUNT, UNSPECIFIED Status: Acute - Plan Plan: Paroxysmal SVT, previously Afib RVR - Reports no hx of afib or arrhythmia - Volume overloaded with edema, elevated BNP, orthopnea with new O2 requirement - improving with diuresis - Currently having short runs of SVT intermittently, exacerbates with movement/ pain - Echo: EF 60-65, 1/3 diastolic dysfunction, reduced RV systolic function - Continue tele - Cardiology and EP: Spoke w/ pt, agrees to medication trial through weekend and if not effective plan ablation 04/01 Acute hypoxic respiratory failure likely 2/2 pulm congestion related to Afib with RVR/CHF - Continue O2, wean as tolerated - Should improve with rate control and diuresis Congestive heart failure - likely diagnosis considering new O2 requirements, orthopnea, and peripheral edema - could be cause of new onset Afib/SVT - Echo as above - will continue diuresis, change IV lasix to oral Indeterminate Troponin - Trend was negative WANDA likely prerenal - resolved - Cr 1.13 -> 0.91 -> 0.84 -> 0.77 - Continue to monitor with daily BMP - Avoid nephrotoxic medications 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, pt prev on Metformin in addition but stopped during recent hospitalization likely due to kidney function - CC diet - ACHS accuchecks, hypoglycemic protocol - Ordered A1c - Expect elevated glucose levels d/t steroid use Normocytic Anemia - Hgb 11.8 Hypothyroidism - Recently diagnosed, started medications 03/23 - TSH and FT4 is nml on admission Constipation - Will start Miralax and Colace MARY Leukocytosis - Resolved 03/28 - Steroid vs cutaneous infection - Levaquin for positive cutaneous cultures Hyponatremia - resolved - 134 -> 138 Bullous Pemphigoid with secondary infection - Wound care consulted - Continue steroid taper - Start Levoquin 500IV daily, abx course 7-10 days HTN - Continue home meds HLD - Continue home meds Hypokalemia - Likely secondary to lasix, replacing with oral supplementation Dispo: Stable, gradually improving LOS: Expect 4-6 additional days Addendum - Attending - Attending Attestation Date/Time: 03/28/19 7719 I personally evaluated the patient and discussed the management with Dr. Mcgrath. I agree with the History, Examination, Assessment and Plan documented above with any addition or exceptions noted below. The patient's lower extremity edema is improved will transition from IV to po lasix. The patient continues to have runs of svt. Will cocntinue to adjust verapamil. The patient is significantly deconditioned. Continue therapy.
[2019-03-28] MEDS ORDERED: Potassium Chloride 20 MEQ TAB PO SCH (07:45)
[2019-03-28] MEDS: Polyethylene Glycol 3350 17 GM Packet PO SCH (08:31)
[2019-03-28] MEDS: Lisinopril 2.5 MG TAB PO SCH (08:31)
[2019-03-28] MEDS: Aspirin 81 mg Enteric Coated Tablet PO SCH (08:32)
[2019-03-28] MEDS: predniSONE 20 MG TAB PO SCH (08:32)
[2019-03-28] MEDS: Enoxaparin Sodium 40 MG/0.4 ML SYRINGE SC SCH (08:33)
[2019-03-28] MEDS: Insulin Glargine 45 UNITS in Pre-Filled Syringe 1 EACH SC SCH (08:59)
[2019-03-28] MEDS: Verapamil 80 MG TAB PO SCH (09:00)
[2019-03-28] MEDS: HYDROcodone/Acetaminophen 5/325 mg Tablet PO PRN (12:20)
[2019-03-28] MEDS: HumaLOG 300 UNITS/3 ML VIAL SC PRN ×3 (12:21→21:00)
[2019-03-28] MEDS: Furosemide 20 MG TAB PO SCH (14:22)
--- NOTE | 2019-03-28 16:35 | PDOC.CTH ---
Cardiology Progress Note - Subjective The pt seen and examined. No overnight events. No cardiac complaints. She had dizziness when she was exercising with PT this AM. Her tele showed 9 beats of PATs per the tele record. Per tele record, she has not had SVT today. - Objective Vital Signs Temp Pulse Pulse Pulse Resp BP BP 03/28/19 16:00 03/28/19 12:00 98.2 F 75 20 03/28/19 11:00 91 84 115/58 L 03/28/19 08:31 63 135/60 03/28/19 08:00 03/28/19 07:54 97.6 F 63 18 BP BP Pulse Ox Pulse Ox Pulse Ox 03/28/19 16:00 94 L 03/28/19 12:00 103/55 L 93 L 03/28/19 11:00 128/65 98 98 03/28/19 08:31 03/28/19 08:00 99 03/28/19 07:54 135/60 99 Admit Weight 203 lb 8 oz Weight 198 lb 03/27/19 03/28/19 03/29/19 06:59 06:59 06:59 Intake Total 530 170 840 Output Total 1150 700 Balance -620 -530 840 - Physical Examination General/Neuro: alert & oriented x3 Neck: no JVD present Lungs: other: (diminished at bases) Heart: RRR Abdomen: soft Extremities: other: (No edema) - Telemetry Telemetry Rhythm: SR; per tele record, she has not had SVT today. - Labs Result Diagrams: 03/28/19 04:48 03/28/19 04:48 Troponin/CKMB CK-MB (CK-2) 1.6 ng/mL (0-6.6) 03/24/19 10:22 Troponin I 0.102 ng/mL (< 0.028) H 03/24/19 16:26 - Assessment/Plan 1. SVT - Verapamil was increased to 80mg in AM and 180mg in PM; cont. to monitor and possible Ablation on 04/01/2019 2. Acute on Chronic diastolic HF - stable with lisinopril and Lasix 3. Pulm HTN with PVSP 50 mmHg - 4. HTN - stable 5. DM type 2 - 6. Hypothyroidism - will start Lovothyroxin with home dose 7. Bullous Pemphigoid - On ABX IV, managed by PCP IVY reviewed Pt. seen and eval. by me. I agree with the A/P by the CRUISE AGENT. We have discussed the pt. [email or web address] Review of Systems - Review of Systems Constitutional: reports: no symptoms reported EENTM: reports: no symptoms reported Respiratory: reports: no symptoms reported Cardiac (ROS): reports: no symptoms reported ABD/GI: reports: no symptoms reported : reports: no symptoms reported Musculoskeletal: reports: no symptoms reported
--- NOTE | 2019-03-29 05:33 | PDOC.FM ---
- Subjective Subjective: Pt states she is feeling almost back to her normal self today. Yesterday a couple hours after receiving her morning medication she states she felt like her energy level returned to baseline. She was weaned off of her oxygen and denies experiencing any instances of SOB on RA, aside from some mild dyspnea during therapy. - Objective MAR Reviewed: Yes Vital Signs & Weight: Vital Signs (12 hours) Temp Pulse Resp BP Pulse Ox 03/29/19 03:10 97.8 F 96 20 124/67 97 03/28/19 19:00 97.7 F 76 18 117/60 92 L Weight Admit Weight 92.306 kg Weight 89.811 kg I&O: 03/27/19 03/28/19 03/29/19 06:59 06:59 06:59 Intake Total 601 611 0128 Output Total 1567 961 3865 Balance -620 -530 1320 Result Diagrams: 03/29/19 06:02 03/29/19 06:02 Phys Exam - Physical Examination Constitutional: NAD HEENT: PERRLA, moist MMs Neck: no JVD, full ROM Respiratory: no wheezing Fine crackles in right base Cardiovascular: RRR, no significant murmur Gastrointestinal: soft, non-tender, positive bowel sounds Musculoskeletal: no edema, pulses present Neurological: moves all 4 limbs Psychiatric: normal affect, A&O x 3 Deviation from normal: Healing bullous lesions Dx/Plan (1) Supraventricular tachycardia, paroxysmal Code(s): I47.1 - SUPRAVENTRICULAR TACHYCARDIA Status: Acute (2) 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 Code(s): I50.30 - UNSPECIFIED DIASTOLIC (CONGESTIVE) HEART FAILURE Status: Acute Qualifiers: Congestive heart failure chronicity: acute Qualified Code(s): I50.31 - Acute diastolic (congestive) heart failure (3) Bullous pemphigoid Code(s): L12.0 - BULLOUS PEMPHIGOID Status: Acute (4) HTN (hypertension) Code(s): I10 - ESSENTIAL (PRIMARY) HYPERTENSION Status: Acute Qualifiers: Hypertension type: essential hypertension Qualified Code(s): I10 - Essential (primary) hypertension (5) Insulin dependent diabetes mellitus Code(s): E11.9 - TYPE 2 DIABETES MELLITUS WITHOUT COMPLICATIONS; Z79.4 - JAIL (CURRENT) USE OF INSULIN Status: Acute - Plan Plan: Paroxysmal SVT, previously Afib RVR - Reports no hx of afib or arrhythmia - Volume overloaded with edema, elevated BNP, orthopnea with new O2 requirement - improving with diuresis - Currently having short runs of SVT intermittently, exacerbates with movement/ pain - Echo: EF 60-65, 1/3 diastolic dysfunction, reduced RV systolic function - Continue tele - Cardiology and EP: Spoke w/ pt, agrees to medication trial through weekend and if not effective plan ablation 04/01 -Verapamil 80mg AM, 180ER HS -Will further increase Verapamil ER HS dose today Acute hypoxic respiratory failure likely 2/2 pulm congestion related to Afib with RVR/CHF - Continue O2, wean as tolerated - Should improve with rate control and diuresis - Weaned to RA on 03/28 Congestive heart failure - likely diagnosis considering new O2 requirements, orthopnea, and peripheral edema - could be cause of new onset Afib/SVT - Echo as above - edema resolving - will continue diuresis, change IV lasix to oral Indeterminate Troponin - Trend was negative WANDA likely prerenal - resolved - Cr 1.13 -> 0.91 -> 0.84 -> 0.77 - Continue to monitor with daily BMP - Avoid nephrotoxic medications 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, pt prev on Metformin in addition but stopped during recent hospitalization likely due to kidney function - CC diet - ACHS accuchecks, hypoglycemic protocol - Ordered A1c - Expect elevated glucose levels d/t steroid use Normocytic Anemia - Hgb 11.8 Hypothyroidism - Recently diagnosed, started medications 03/23 - TSH and FT4 is nml on admission Leukocytosis - Resolved 03/28 - Steroid vs cutaneous infection - Levaquin for positive cutaneous cultures Hyponatremia - resolved - 134 -> 138 Bullous Pemphigoid with secondary infection - Wound care consulted - Continue steroid taper - Start Levoquin 500IV daily, abx course 7-10 days HTN - Continue home meds HLD - Continue home meds Hypokalemia - Likely secondary to lasix, replacing with oral supplementation Dispo: Stable, gradually improving LOS: Expect 3-5 additional days Addendum - Attending - Attending Attestation Date/Time: 03/29/19 4040 I personally evaluated the patient and discussed the management with Dr. Mcgrath. I agree with the History, Examination, Assessment and Plan documented above with any addition or exceptions noted below. The patient was reported to have some svt overnight. She states she was feeling much better this morning but is now feeling weak again. Will adjust verapamil. Pt is likely going to need an ablation and at this time, family is in agreement. Doing well on PO lasix.
[2019-03-29] MEDS: Levothyroxine 150 MCG TAB PO SCH (05:36)
[2019-03-29 06:16] LABS: #Basophils 0.1 thou/uL (0.0-0.2); #Eosinphils 0.2 thou/uL (0.0-0.7); #Lymphocytes 2.6 thou/uL (1.20-3.40); #Monocytes 0.6 thou/uL (0.11-0.59); #Neutrophils 7.1 thou/uL (1.40-6.50); %Basophils 1.3 % (0.0-1.0); %Lymphocytes 24.6 % (21.0-51.0); %Monocytes 5.7 % (0.0-10.0); %Neutrophils 66.5 % (42.0-75.0); Hemoglobin 12.5 g/dL (12.0-16.0); Mean Corpuscular HGB CONC 32.9 g/dL (32.0-36.0); Mean Corpuscular Hemoglobin 32.6 pg (27.0-31.0); Mean Platelet Volume 7.2 fL (7.4-10.4); Platelet Count 255 thou/uL (130-400); RBC Distribution Width 14.1 % (11.5-14.5); Red Blood Cell (RBC) Count 3.84 mill/uL (4.20-5.40); White Blood Cell (WBC) Count 10.7 thou/uL (4.8-10.8)
[2019-03-29 06:42] LABS: Calcium 8.4 mg/dL (7.8-10.44); Chloride 101 mmol/L (98-107); Sodium 135 mmol/L (136-145)
[2019-03-29 06:54] LABS: Anion Gap 18 mmol/L (10-20); BUN (Urea Nitrogen) 15 mg/dL (9.8-20.1); Calc. Creatinine Clearance 66 mL/min (70-130); Carbon Dioxide 21 mmol/L (23-31); Estimated GFR-MDRD 63; Glucose 93 mg/dL (83-110)
[2019-03-29] MEDS: predniSONE 20 MG TAB PO SCH (09:17)
[2019-03-29] MEDS: Lisinopril 2.5 MG TAB PO SCH (09:17)
[2019-03-29] MEDS: Aspirin 81 mg Enteric Coated Tablet PO SCH (09:17)
[2019-03-29] MEDS: Furosemide 20 MG TAB PO SCH ×2 (09:17→13:52)
[2019-03-29] MEDS: Verapamil 80 MG TAB PO SCH (09:17)
[2019-03-29] MEDS: Insulin Glargine 45 UNITS in Pre-Filled Syringe 1 EACH SC SCH (09:18)
[2019-03-29] MEDS: Polyethylene Glycol 3350 17 GM Packet PO SCH (09:18)
[2019-03-29] MEDS: Enoxaparin Sodium 40 MG/0.4 ML SYRINGE SC SCH (09:18)
[2019-03-29] MEDS: HumaLOG 300 UNITS/3 ML VIAL SC PRN ×3 (11:27→21:02)
[2019-03-29] MEDS ORDERED: Adenosine 6 MG/2 ML VIAL ONE ×2 (12:19→12:29)
[2019-03-29] MEDS ORDERED: Diltiazem 125 MG in Sodium Chloride 0.9% 100 ML IVPB SCH (13:00)
[2019-03-29] MEDS ORDERED: Digoxin 0.5 MG/2 ML AMP SLOW IVP SCH (13:45)
[2019-03-29] MEDS ORDERED: Magnesium 2 GM/50 ML 2 GM in Premix Bag 1 BAG IVPB SCH (13:45)
[2019-03-29 13:49] LABS: Troponin I 0.034 ng/mL (< 0.028)
[2019-03-29] MEDS: HYDROcodone/Acetaminophen 5/325 mg Tablet PO PRN ×2 (13:51→21:47)
--- NOTE | 2019-03-29 14:12 | PDOC.CTH ---
Cardiology Progress Note - Subjective EP progress note 03/29/19 Pt developed recurrent symptomatic episodes of SVT this am. No LOC or CP. - ROS shortness of breath - Objective Vital Signs Temp Pulse Resp BP BP Pulse Ox 03/29/19 13:45 89 03/29/19 13:00 98 03/29/19 12:00 96.3 F L 89 18 100/58 L 97 03/29/19 09:17 80 137/58 L 03/29/19 08:00 97.1 F L 80 16 137/58 L 97 03/29/19 03:10 97.8 F 96 20 124/67 97 Admit Weight 203 lb 8 oz Weight 196 lb 11.2 oz 03/28/19 03/29/19 03/30/19 06:59 06:59 06:59 Intake Total 170 2910 600 Output Total 700 2050 300 Balance -530 860 300 - Physical Examination General/Neuro: alert & oriented x3, other: (dyscomfort with sores ) Neck: no JVD present Lungs: CTA Heart: RRR Abdomen: no HSM Extremities: + edema B (0) - Telemetry Telemetry Rhythm: SR, PACs, Parox SVT - Labs Result Diagrams: 03/29/19 06:02 03/29/19 06:02 Troponin/CKMB CK-MB (CK-2) 1.6 ng/mL (0-6.6) 03/24/19 10:22 Troponin I 0.034 ng/mL (< 0.028) H 03/29/19 12:21 - Assessment/Plan 1. Parox SVT. 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 Agree with increasing AVN blockers, IV dilt/Dig. Plan SVT ablation Monday. Family agreeable. 2. Bullous Pemphygoid.
--- NOTE | 2019-03-29 14:31 | PRG ---
DATE OF SERVICE: 03/29/2019 SUBJECTIVE: Ms. Rodriguez is a very pleasant, 88-year-old, white female, who has been having episodes of SVT. She had another episode earlier today with rapid ventricular response. It was elected to restart a diltiazem drip, and it was requested that the patient be transferred to ICU for closer monitoring. There was no step-down bed, so we went straight to the ICU, although the patient is hemodynamically stable and alert. OBJECTIVE: GENERAL: Again, she is awake and alert. VITAL SIGNS: Her blood pressure is 110/70. Her pulse rate varies between 120 and 145. Her monitor shows some supraventricular tachycardia and/or a narrow complex tachycardia that appears to be SVT. A diltiazem drip has been restarted. Cardiology was consulted and also suggested digoxin, which we are currently adding. I would also suggest that we give the patient some more magnesium and then put her on a maintenance dose of daily or b.i.d. dosing. Dr. Briseno was also notified and plans to take the patient for ablation on Monday. Job ID: [id number]
--- NOTE | 2019-03-29 14:34 | PDOC.CTH ---
Cardiology Progress Note - Subjective The pt was seen and examined this AM. No overnight events. She was complains of sudden fatigue with 9 beats of PATs around 0900. Other pressley, she denied any other cardiac complaints. - Objective Vital Signs Temp Pulse Resp BP BP Pulse Ox 03/29/19 13:45 89 03/29/19 13:00 98 03/29/19 12:00 96.3 F L 89 18 100/58 L 97 03/29/19 09:17 80 137/58 L 03/29/19 08:00 97.1 F L 80 16 137/58 L 97 03/29/19 03:10 97.8 F 96 20 124/67 97 Admit Weight 203 lb 8 oz Weight 196 lb 11.2 oz 03/28/19 03/29/19 03/30/19 06:59 06:59 06:59 Intake Total 170 2910 800 Output Total 700 2050 700 Balance -530 860 100 - Physical Examination General/Neuro: alert & oriented x3 Neck: no JVD present Lungs: CTA Heart: RRR Abdomen: soft Extremities: other: (No edema) - Telemetry Telemetry Rhythm: SR with frequent PACs - Labs Result Diagrams: 03/29/19 06:02 03/29/19 06:02 Troponin/CKMB CK-MB (CK-2) 1.6 ng/mL (0-6.6) 03/24/19 10:22 Troponin I 0.034 ng/mL (< 0.028) H 03/29/19 12:21 - Assessment/Plan 1. SVT - On Verapamil 80mg in AM and 180mg in PM; cont. to monitor and possible Ablation on 04/01/2019 2. Acute on Chronic diastolic HF - stable with lisinopril and Lasix 3. Pulm HTN with PVSP 50 mmHg - 4. HTN - stable 5. DM type 2 - 6. Hypothyroidism - will start Lovothyroxin with home dose 7. Bullous Pemphigoid - On ABX IV, managed by PCP IVY reviewed * Dr Zimmerman pt Pt. seen and eval. by me.She continues to have runs of SVT. Plan for ablation on Monday. C/O of significant pain with her skin lesions.Chest clear. RRR alternating with rapid SVT. She was transferred to CCU due to the continued SVT and hypotension. Continue IV dilt. Digoxin added. Review of Systems - Review of Systems Constitutional: reports: see HPI EENTM: reports: no symptoms reported Respiratory: reports: no symptoms reported Cardiac (ROS): reports: no symptoms reported ABD/GI: reports: no symptoms reported : reports: no symptoms reported
[2019-03-29] MEDS ORDERED: Morphine 2 MG/ML SYRINGE SLOW IVP PRN (14:38)
[2019-03-29] MEDS: Digoxin 0.5 MG/2 ML AMP SLOW IVP SCH (20:01)
[2019-03-29] MEDS: Senokot S 8.6-50 MG TAB PO SCH (20:59)
[2019-03-30] MEDS: Digoxin 0.5 MG/2 ML AMP SLOW IVP SCH (02:31)
[2019-03-30] MEDS: Levothyroxine 150 MCG TAB PO SCH (06:16)
--- NOTE | 2019-03-30 06:25 | PDOC.FM ---
- Subjective Subjective: NAEO in the CCU. Patient remained stable on cardizem drip overnight. Reports feeling well this AM. - Objective MAR Reviewed: Yes Vital Signs & Weight: Vital Signs (12 hours) Pulse Pulse Ox 03/30/19 02:31 89 03/29/19 20:01 89 03/29/19 19:05 99 Weight Admit Weight 92.306 kg Weight 88.541 kg Most Recent Monitor Data Heart Rate from ECG 58 NIBP 116/51 NIBP BP-Mean 72 Respiration from ECG 16 SpO2 98 I&O: 03/28/19 03/29/19 03/30/19 06:59 06:59 06:59 Intake Total 170 2910 1100.7 Output Total 700 0 2049 Balance -530 860 -949.3 Result Diagrams: 03/29/19 06:02 03/30/19 06:10 Phys Exam - Physical Examination Constitutional: NAD HEENT: moist MMs Neck: supple, full ROM Respiratory: no wheezing, no rales, no rhonchi, clear to auscultation bilateral Cardiovascular: no significant murmur bradycardic but regular rhythm Musculoskeletal: pulses present trace edema in B/L LEs w/ SCDs in place Neurological: non-focal, moves all 4 limbs Psychiatric: normal affect, A&O x 3 Dx/Plan (1) 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 Code(s): I50.30 - UNSPECIFIED DIASTOLIC (CONGESTIVE) HEART FAILURE Status: Acute Qualifiers: Congestive heart failure chronicity: acute Qualified Code(s): I50.31 - Acute diastolic (congestive) heart failure (2) Supraventricular tachycardia, paroxysmal Code(s): I47.1 - SUPRAVENTRICULAR TACHYCARDIA Status: Acute (3) Bullous pemphigoid Code(s): L12.0 - BULLOUS PEMPHIGOID Status: Acute (4) HLD (hyperlipidemia) Code(s): E78.5 - HYPERLIPIDEMIA, UNSPECIFIED Status: Acute (5) HTN (hypertension) Code(s): I10 - ESSENTIAL (PRIMARY) HYPERTENSION Status: Acute Qualifiers: Hypertension type: essential hypertension Qualified Code(s): I10 - Essential (primary) hypertension (6) Hypothyroidism Code(s): E03.9 - HYPOTHYROIDISM, UNSPECIFIED Status: Acute (7) Insulin dependent diabetes mellitus Code(s): E11.9 - TYPE 2 DIABETES MELLITUS WITHOUT COMPLICATIONS; Z79.4 - LEAD MACHINIST (CURRENT) USE OF INSULIN Status: Acute (8) Normocytic anemia Code(s): D64.9 - ANEMIA, UNSPECIFIED Status: Acute - Plan Plan: SVT, previously Afib RVR - Reports no hx of afib or arrhythmia - s/p a run of sustained SVT with a HR in the 170s with concommitant hypotension requiring restarting cardizem drip (per EP recs) and transfer to the CCU. - Cardiology and EP on board. Appreciate recs. Will continue on cardizem drip with plans to an ablation on Monday. - Will continue Verapamil 80mg PO QAM. - Will continue to monitor HR and BPs closely. Congestive heart failure - Echo: EF 60-65, 1/3 diastolic dysfunction, reduced RV systolic function - Edema resolving with QD diuresis & now satting well on RA Indeterminate Troponin - Trend was negative & repeat yesterday also lower than initial trops WANDA - Cr level pending for this AM. - Continue to monitor with daily BMPs - Avoid nephrotoxic medications Hypokalemia - Likely secondary to lasix. Will replace with oral supplementation PRN 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 & consider resuming Metformin once kidney function has returned to baseline. - CC diet - ACHS accuchecks, hypoglycemic protocol Normocytic Anemia - Hgb 11.8 on admission but up to ~12 yesterday. Will continue to monitor PRN while on lovenox in the hospital. Hypothyroidism - Will continue synthroid; however, labs WNLs on admission after only 2 doses. Will need close outpatient follow-up. Acute hypoxic respiratory failure likely 2/2 pulm congestion related to Afib with RVR/CHF, resolved - Weaned to RA again this AM. Leukocytosis - Resolved on 03/28 Hyponatremia - resolved - Na pending for this AM. Bullous Pemphigoid with secondary infection - Wound care on board. - Will continue steroid taper - Will continue Levaquin 500mg daily for a total of 10 days HTN - Continue home meds HLD - Continue home meds Dispo: Expect 3-5 additional days as patient will need to be monitored for at least 24 hours s/p ablation on 04/01.
[2019-03-30 06:46] LABS: Anion Gap 12 mmol/L (10-20); BUN (Urea Nitrogen) 14 mg/dL (9.8-20.1); Calc. Creatinine Clearance 71 mL/min (70-130); Calcium 8.4 mg/dL (7.8-10.44); Carbon Dioxide 29 mmol/L (23-31); Chloride 100 mmol/L (98-107); Estimated GFR-MDRD 69; Potassium 3.9 mmol/L (3.5-5.1); Sodium 137 mmol/L (136-145)
[2019-03-30 06:50] LABS: Glucose 52 mg/dL (83-110)
[2019-03-30] MEDS: Enoxaparin Sodium 40 MG/0.4 ML SYRINGE SC SCH (09:00)
[2019-03-30] MEDS: Lisinopril 2.5 MG TAB PO SCH (09:01)
[2019-03-30] MEDS: Furosemide 20 MG TAB PO SCH ×2 (09:01→14:57)
[2019-03-30] MEDS: Polyethylene Glycol 3350 17 GM Packet PO SCH (09:01)
[2019-03-30] MEDS: Insulin Glargine 45 UNITS in Pre-Filled Syringe 1 EACH SC SCH (09:01)
[2019-03-30] MEDS: predniSONE 20 MG TAB PO SCH (09:02)
[2019-03-30] MEDS: Aspirin 81 mg Enteric Coated Tablet PO SCH (09:02)
[2019-03-30] MEDS: Digoxin 0.125 MG TAB PO SCH (09:02)
[2019-03-30] MEDS: Senokot S 8.6-50 MG TAB PO SCH ×2 (09:03→21:20)
--- NOTE | 2019-03-30 11:06 | PRG ---
DATE OF SERVICE: 03/30/2019 I have discussed the case with Dr. Amanda Antonio and agree with her assessment and plan. Ms. Rodriguez this morning is awake, alert, very pleasant, talkative, in no distress. Her current pulse rate is 90 and her MAP is greater than 80. She is still on the low dose diltiazem drip and we are awaiting the ablation, which is to be done on Monday. Job ID: [id number]
[2019-03-30] MEDS: HumaLOG 300 UNITS/3 ML VIAL SC PRN ×2 (17:10→21:27)
[2019-03-30] MEDS: HYDROcodone/Acetaminophen 5/325 mg Tablet PO PRN (19:06)
--- NOTE | 2019-03-30 19:31 | CON ---
DATE OF CONSULTATION: 03/30/2019 HISTORY OF PRESENT ILLNESS: Ms. Rodriguez is a very pleasant woman who unfortunately was diagnosed with bullous pemphigoid. She had rapid atrial fibrillation, subsequently admitted to the critical care unit. Electrophysiology has been consulted. She is actually in no distress when I saw her. She denied shortness of breath. PAST MEDICAL HISTORY: Remarkable for; 1. Diabetes. 2. Lipid disorder. 3. Hypertension. 4. Hypothyroidism. SOCIAL HISTORY: Nonsmoker, nondrinker, and nondrug user. FAMILY HISTORY: Negative for lung disease in early age. REVIEW OF SYSTEMS: Ten-point review of systems completed, is remarkable only for her bullous pemphigoid which takes she says for ever to heal, but she actually gets very tearful when she starts talking about this. PHYSICAL EXAMINATION: VITAL SIGNS: Blood pressure 109/56, heart rate 67, respiratory rate 18, and oximetry is 99. HEENT: Pupils are equal. Sclerae anicteric. NECK: Supple. No lymphadenopathy. LUNGS: Clear. HEART: Regular rhythm. S1, S2 are normal. ABDOMEN: Soft and nontender. EXTREMITIES: Without clubbing, cyanosis, or edema. NEUROLOGIC: Grossly nonfocal. LABORATORY DATA: Sodium 137, potassium 3.9, chloride 100, bicarb 29, BUN 14, and creatinine 0.79. IMPRESSION: 1. Supraventricular tachycardia, clinically being followed by Electrophysiology. 2. Bullous pemphigoid. Follow the other physicians caring for. This is a 50 minute consult, with greater than 50% of time spent on unit coordinating care. Job ID: [id number] MTDD
--- NOTE | 2019-03-30 21:10 | EKG ---
Test Reason : DIZZINESS Blood Pressure : / mmHG Vent. Rate : 186 BPM Atrial Rate : 192 BPM P-R Int : 000 ms QRS Dur : 088 ms QT Int : 254 ms P-R-T Axes : 000 014 219 degrees QTc Int : 447 ms Supraventricular tachycardia Marked ST abnormality, possible inferolateral subendocardial injury Abnormal ECG Confirmed by ALBA FRIEDMAN ([id number]), food expeditor JESÚS CRUZ ([id number]) on 03/30/2019 9:10:00 PM Referred By: Confirmed By:ALBA FRIEDMAN
[2019-03-30] MEDS: Magnesium Chloride 64 MG TAB PO SCH (21:20)
[2019-03-31 04:49] LABS: Anion Gap 14 mmol/L (10-20); BUN (Urea Nitrogen) 16 mg/dL (9.8-20.1); Calc. Creatinine Clearance 68 mL/min (70-130); Calcium 9.1 mg/dL (7.8-10.44); Carbon Dioxide 27 mmol/L (23-31); Chloride 97 mmol/L (98-107); Estimated GFR-MDRD 65; Glucose 117 mg/dL (83-110); Potassium 4.4 mmol/L (3.5-5.1); Sodium 134 mmol/L (136-145)
[2019-03-31] MEDS ORDERED: Levothyroxine Sodium 50 MCG TAB PO SCH (06:30)
--- NOTE | 2019-03-31 07:04 | PDOC.FM ---
- Subjective Subjective: NAEO. Patient reports feeling well this AM. Denies any chest pain, SOB, or recurrent dizzy spells yesterday. - Objective MAR Reviewed: Yes Vital Signs & Weight: Weight Admit Weight 92.306 kg Weight 90.31 kg Most Recent Monitor Data Heart Rate from ECG 80 NIBP 147/60 NIBP BP-Mean 89 Respiration from ECG 17 SpO2 96 I&O: 03/29/19 03/30/19 03/31/19 06:59 06:59 06:59 Intake Total 2910 1301.5 2009 Output Total 2049 2250 2790 Balance 860 -948.5 -780 Result Diagrams: 03/29/19 06:02 03/31/19 04:18 Phys Exam - Physical Examination Constitutional: NAD HEENT: moist MMs Neck: supple, full ROM Respiratory: no wheezing, no rales, no rhonchi, clear to auscultation bilateral Cardiovascular: RRR, no significant murmur Musculoskeletal: no edema, pulses present Neurological: non-focal, moves all 4 limbs Psychiatric: normal affect, A&O x 3 Skin: no rash, normal turgor Dx/Plan (1) 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 Code(s): I50.30 - UNSPECIFIED DIASTOLIC (CONGESTIVE) HEART FAILURE Status: Chronic Qualifiers: Congestive heart failure chronicity: acute Qualified Code(s): I50.31 - Acute diastolic (congestive) heart failure (2) Supraventricular tachycardia, paroxysmal Code(s): I47.1 - SUPRAVENTRICULAR TACHYCARDIA Status: Acute (3) Bullous pemphigoid Code(s): L12.0 - BULLOUS PEMPHIGOID Status: Acute (4) HLD (hyperlipidemia) Code(s): E78.5 - HYPERLIPIDEMIA, UNSPECIFIED Status: Acute (5) HTN (hypertension) Code(s): I10 - ESSENTIAL (PRIMARY) HYPERTENSION Status: Acute Qualifiers: Hypertension type: essential hypertension Qualified Code(s): I10 - Essential (primary) hypertension (6) Hypothyroidism Code(s): E03.9 - HYPOTHYROIDISM, UNSPECIFIED Status: Acute (7) Insulin dependent diabetes mellitus Code(s): E11.9 - TYPE 2 DIABETES MELLITUS WITHOUT COMPLICATIONS; Z79.4 - PROGRAM MANAGER TRANSPORTATION (CURRENT) USE OF INSULIN Status: Acute (8) Normocytic anemia Code(s): D64.9 - ANEMIA, UNSPECIFIED Status: Acute - Plan Plan: SVT, previously Afib RVR - Reports no hx of afib or arrhythmia - Patient remained stable on the dilt drip yesterday. - Cardiology and EP on board. Appreciate recs. Will continue on cardizem drip with plans for an ablation tomorrow. - Will continue Verapamil 80mg PO QAM. - Will continue to monitor HR and BPs closely. Congestive heart failure - Echo: EF 60-65, 1/3 diastolic dysfunction, reduced RV systolic function - Edema resolving with QD diuresis & now satting well on RA WANDA - Cr 0.83 this AM w/ an eGFR of 65. Suspect possible underlying CKD of at least 2 - Continue to monitor with daily BMPs - Avoid nephrotoxic medications Hyponatremia - Na down to 134 this AM. Patient asymptomatic. Will continue to monitor IDDMII - Will decrease lantus to 40U qAM & due to persistent hypoglycemia in the AM - CC diet - ACHS accuchecks, hypoglycemic protocol Normocytic Anemia - Hgb 11.8 on admission but up to ~12 yesterday. Will continue to monitor PRN while on lovenox in the hospital. Hypothyroidism - Will continue synthroid; however, labs WNLs on admission after only 2 doses. Will need close outpatient follow-up. Acute hypoxic respiratory failure likely 2/2 pulm congestion related to Afib with RVR/CHF, resolved - Stable on RA since yesterday AM. Leukocytosis - Resolved on 03/28 Bullous Pemphigoid with secondary infection - Wound care on board. - Will continue steroid taper - Will continue Levaquin 500mg daily for a total of 10 days Hypokalemia, resolved - K 4.4 this AM. Will replace with oral supplementation PRN HTN - Continue home meds HLD - Continue home meds Indeterminate Troponin - Trend was negative & repeat yesterday also lower than initial trops Dispo: Expect ~2-3 additional days as patient will need to be monitored for at least 24 hours s/p ablation on 04/01.
[2019-03-31] MEDS: Levothyroxine 150 MCG TAB PO SCH (07:26)
[2019-03-31] MEDS: predniSONE 20 MG TAB PO SCH (08:47)
[2019-03-31] MEDS: Aspirin 81 mg Enteric Coated Tablet PO SCH (08:48)
[2019-03-31] MEDS: Senokot S 8.6-50 MG TAB PO SCH ×2 (08:48→21:03)
[2019-03-31] MEDS: Digoxin 0.125 MG TAB PO SCH (08:48)
[2019-03-31] MEDS: Enoxaparin Sodium 40 MG/0.4 ML SYRINGE SC SCH (08:49)
[2019-03-31] MEDS: Lisinopril 2.5 MG TAB PO SCH (08:49)
[2019-03-31] MEDS: Furosemide 20 MG TAB PO SCH ×2 (08:49→15:07)
[2019-03-31] MEDS: Magnesium Chloride 64 MG TAB PO SCH ×2 (08:50→21:03)
[2019-03-31] MEDS: Polyethylene Glycol 3350 17 GM Packet PO SCH (08:50)
[2019-03-31] MEDS: Insulin Glargine 40 UNITS in Pre-Filled Syringe 1 EACH SC SCH (09:04)
[2019-03-31] MEDS: HumaLOG 300 UNITS/3 ML VIAL SC PRN ×2 (11:23→16:39)
--- NOTE | 2019-03-31 12:29 | PRG ---
DATE OF SERVICE: 03/31/2019 Shila is doing fine this morning. She is however still having episodes of SVT with rapid ventricular response of the heart rate to 140. She is on a diltiazem drip. We will continue to monitor and told her an ablation session tomorrow with Dr. Briseno. Hemodynamically, other than the rapid heart rate, she is stable, maintaining a normal blood pressure. Job ID: [id number]
--- NOTE | 2019-03-31 15:44 | PRG ---
DATE OF SERVICE: 03/31/2019 SUBJECTIVE: Ms. Rodriguez's rates in the 80s. She is in no distress. She is afebrile. OBJECTIVE: VITAL SIGNS: Blood pressure is 99/45, respiratory rates in the teens. HEAD AND NECK: Unchanged. LUNGS: Clear. HEART: Regular rhythm with intermittent irregular beats. ABDOMEN: Soft and nontender. EXTREMITIES: Without clubbing, cyanosis, or edema. LABORATORY DATA: There is no new CBC. Sodium 134, potassium 4.4, chloride 97, bicarb 27, BUN 16, and creatinine 0.83. IMPRESSION AND PLAN: Supraventricular tachycardia, currently stable. I recommend she stay in the Critical Care Unit since nelli lópez was called when she was on the telemetry unit after being transferred out of the intermediate care unit. Electrophysiology will evaluate her and figure out what the next best step is. She is medically stable at this time. Job ID: [id number]
[2019-04-01 05:07] LABS: Anion Gap 11 mmol/L (10-20); BUN (Urea Nitrogen) 18 mg/dL (9.8-20.1); Calc. Creatinine Clearance 68 mL/min (70-130); Calcium 8.8 mg/dL (7.8-10.44); Carbon Dioxide 30 mmol/L (23-31); Chloride 100 mmol/L (98-107); Estimated GFR-MDRD 63; Glucose 81 mg/dL (83-110); Sodium 137 mmol/L (136-145)
[2019-04-01] MEDS ORDERED: Lisinopril 2.5 MG TAB PO SCH (07:58)
[2019-04-01] MEDS: Insulin Glargine 40 UNITS in Pre-Filled Syringe 1 EACH SC SCH (08:08)
[2019-04-01 08:34] LABS: Hemoglobin 13.2 g/dL (12.0-16.0); Mean Corpuscular HGB CONC 32.7 g/dL (32.0-36.0); Mean Corpuscular Hemoglobin 32.1 pg (27.0-31.0); Mean Corpuscular Volume 98.2 fL (78.0-98.0); Mean Platelet Volume 6.9 fL (7.4-10.4); Platelet Count 303 thou/uL (130-400); Red Blood Cell (RBC) Count 4.12 mill/uL (4.20-5.40); White Blood Cell (WBC) Count 14.8 thou/uL (4.8-10.8)
[2019-04-01] MEDS: Levothyroxine Sodium 50 MCG TAB PO SCH (08:35)
[2019-04-01] MEDS: Magnesium Chloride 64 MG TAB PO SCH ×2 (08:35→22:53)
[2019-04-01] MEDS: Aspirin 81 mg Enteric Coated Tablet PO SCH (08:35)
[2019-04-01] MEDS: Digoxin 0.125 MG TAB PO SCH (08:36)
[2019-04-01] MEDS: Senokot S 8.6-50 MG TAB PO SCH ×2 (08:36→22:53)
[2019-04-01] MEDS: predniSONE 20 MG TAB PO SCH (08:37)
[2019-04-01] MEDS: Furosemide 20 MG TAB PO SCH ×2 (08:37→14:06)
[2019-04-01] MEDS: Enoxaparin Sodium 40 MG/0.4 ML SYRINGE SC SCH (08:40)
[2019-04-01] MEDS: Lisinopril 5 MG TAB PO SCH (08:44)
[2019-04-01] MEDS: Polyethylene Glycol 3350 17 GM Packet PO SCH (08:45)
[2019-04-01 09:04] LABS: #Eosinphils 0.3 thou/uL (0.0-0.7); #Lymphocytes 3.2 thou/uL (1.20-3.40); #Monocytes 0.8 thou/uL (0.11-0.59); #Neutrophils 10.4 thou/uL (1.40-6.50); %Eosinophils 2.3 % (0.0-10.0); %Lymphocytes 21.8 % (21.0-51.0); %Monocytes 5.5 % (0.0-10.0); %Neutrophils 70.4 % (42.0-75.0); MDiff Complete? YES; Ovalocytes SLIGHT = 2-5 cells (100X) (0-1/hpf); Platelet Morphology Comment Appears Adequate
--- NOTE | 2019-04-01 10:36 | PRG ---
DATE OF SERVICE: 04/01/2019 SUBJECTIVE: Ms. Shila Rodriguez is scheduled to be evaluated by EP today. OBJECTIVE: VITAL SIGNS: Heart rate is in 80s, oximetry is 97% on 2 L, and blood pressure is 133/57. HEAD AND NECK: Unchanged. LUNGS: Clear. HEART: Regular rhythm. ABDOMEN: Soft and nontender. EXTREMITIES: Without edema. LABORATORY DATA: White count is 14.8, hemoglobin 13.2, and platelets are 303. Electrolytes are normal. Intake and outputs -794 mL. IMPRESSION: 1. Supraventricular tachycardia, currently awaiting evaluation by EP. 2. Bullous pemphigoid, not a clinical issue at this point in time. Once her repeat evaluation is complete, she can be transferred out of the Critical Care Unit. Job ID: [id number]
--- NOTE | 2019-04-01 10:52 | PDOC.FM ---
- Subjective Subjective: Patient reports she feel well this AM. [place] a little fatigued yesterday but was having second runs of SVT even on exam. Denies any SOB or N/V/D. - Objective MAR Reviewed: Yes Vital Signs & Weight: Vital Signs (12 hours) Temp Pulse Pulse Pulse BP BP Pulse Ox 04/01/19 08:56 71 85 139/93 H 141/58 H 04/01/19 08:44 89 04/01/19 08:36 89 04/01/19 07:54 97 04/01/19 07:00 97.9 F Weight Admit Weight 92.306 kg Weight 90.129 kg Most Recent Monitor Data Heart Rate from ECG 62 NIBP 148/67 NIBP BP-Mean 94 Respiration from ECG 17 SpO2 99 I&O: 03/31/19 04/01/19 04/02/19 06:59 06:59 06:59 Intake Total 2009 1555 Output Total 5366 8600 Balance -780 -794 Result Diagrams: 04/01/19 08:24 04/01/19 04:32 Phys Exam - Physical Examination Constitutional: NAD HEENT: moist MMs Neck: supple, full ROM Respiratory: no wheezing, no rales, no rhonchi, clear to auscultation bilateral Cardiovascular: RRR, no significant murmur Neurological: non-focal, moves all 4 limbs Psychiatric: normal affect, A&O x 3 Skin: normal turgor Dx/Plan (1) 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 Code(s): I50.30 - UNSPECIFIED DIASTOLIC (CONGESTIVE) HEART FAILURE Status: Chronic Qualifiers: Congestive heart failure chronicity: acute Qualified Code(s): I50.31 - Acute diastolic (congestive) heart failure (2) Supraventricular tachycardia, paroxysmal Code(s): I47.1 - SUPRAVENTRICULAR TACHYCARDIA Status: Acute (3) Bullous pemphigoid Code(s): L12.0 - BULLOUS PEMPHIGOID Status: Acute (4) HLD (hyperlipidemia) Code(s): E78.5 - HYPERLIPIDEMIA, UNSPECIFIED Status: Acute (5) HTN (hypertension) Code(s): I10 - ESSENTIAL (PRIMARY) HYPERTENSION Status: Acute Qualifiers: Hypertension type: essential hypertension Qualified Code(s): I10 - Essential (primary) hypertension (6) Hypothyroidism Code(s): E03.9 - HYPOTHYROIDISM, UNSPECIFIED Status: Acute (7) Insulin dependent diabetes mellitus Code(s): E11.9 - TYPE 2 DIABETES MELLITUS WITHOUT COMPLICATIONS; Z79.4 - FILE SYSTEM INSTALLER (CURRENT) USE OF INSULIN Status: Acute (8) Normocytic anemia Code(s): D64.9 - ANEMIA, UNSPECIFIED Status: Acute - Plan Plan: SVT, previously Afib RVR - Reports no hx of afib or arrhythmia - Patient remained stable on the dilt drip overnight. - Cardiology and EP on board. Appreciate recs. Will continue on cardizem drip with plans for an ablation this afternoon. - Will continue Verapamil 80mg PO QAM. - Will continue to monitor HR and BPs closely. Congestive heart failure - Echo: EF 60-65, 1/3 diastolic dysfunction, reduced RV systolic function - Will continue QD diuresis, strict I&Os and HH, fluid restricted diet. WANDA - Renal function stable w/ eGFR in the 60s for the last several days. Suspect possible underlying CKD of at least 2. - Continue to monitor with daily BMPs - Avoid nephrotoxic medications IDDMII - Will continue lantus at 40U qAM due to persistent hypoglycemia in the AMs. - CC diet - ACHS accuchecks, hypoglycemic protocol Normocytic Anemia - Hgb stable at 12. Will continue to monitor PRN while on lovenox in the hospital. Hypothyroidism - Will continue synthroid; however, labs WNLs on admission after only 2 doses. Will need close outpatient follow-up. Acute hypoxic respiratory failure likely 2/2 pulm congestion related to Afib with RVR/CHF - Patient has been requiring O2 via nasal canula since being in the CCU. Could be 2/2 arrhythmia but will continue to monitor and consider further workup if no improvement after ablation today. Leukocytosis - WBC slightly elevated at 14.8 this AM but no s/s of infection. Will continue to monitor. Bullous Pemphigoid with secondary infection - Wound care on board. - Will continue steroid taper - Will continue Levaquin 500mg daily for a total of 7 days Hypokalemia, resolved - K 4.0 this AM. Will replace with oral supplementation PRN HTN - Continue home meds but will increase lisinopril to 5mg QD due to increased pressures over the course of the day yesterday HLD - Continue home meds Indeterminate Troponin - Trend was negative & repeat yesterday also lower than initial trops Hyponatremia, resolved - Na WNLs at 137 this AM. Will continue to monitor Dispo: Expect ~2-3 additional days as patient will need to be monitored for at least 24 hours s/p ablation on 04/01.
--- NOTE | 2019-04-01 11:16 | PRG ---
DATE OF SERVICE: Ms. Rodriguez is sitting quietly in bed, in no distress. Her heart rate is 62 and her blood pressure is 124/60. She is asymptomatic. She will have ablation later today per Dr. Briseno. Job ID: [id number]
[2019-04-01] MEDS ORDERED: PROPOFOL 200 MG/20 ML VIAL ONE (11:45)
[2019-04-01] MEDS ORDERED: PHENYLEPHRINE-NS 100 MCG/ML 10 ML SYRINGE ONE (11:45)
--- NOTE | 2019-04-01 11:53 | PDOC.CTH ---
Cardiology Progress Note - Objective Vital Signs Temp Pulse Pulse Pulse BP BP Pulse Ox 04/01/19 11:00 97.9 F 04/01/19 08:56 71 85 139/93 H 141/58 H 04/01/19 08:44 89 04/01/19 08:36 89 04/01/19 07:54 97 04/01/19 07:00 97.9 F Admit Weight 203 lb 8 oz Weight 198 lb 11.2 oz 03/31/19 04/01/19 04/02/19 06:59 06:59 06:59 Intake Total 2009 1555 Output Total 2789 2700 Balance -780 -794 - Labs Result Diagrams: 04/01/19 08:24 04/01/19 04:32 Troponin/CKMB CK-MB (CK-2) 1.6 ng/mL (0-6.6) 03/24/19 10:22 Troponin I 0.034 ng/mL (< 0.028) H 03/29/19 12:21 - Assessment/Plan 1. SVT - On Verapamil 80mg in AM and 180mg in PM; cont. to monitor and possible Ablation on 04/01/2019 2. Acute on Chronic diastolic HF - stable with lisinopril and Lasix 3. Pulm HTN with PVSP 50 mmHg - 4. HTN - stable 5. DM type 2 - 6. Hypothyroidism - will start Lovothyroxin with home dose 7. Bullous Pemphigoid - On ABX IV, managed by PCP IVY reviewed * Dr Zimmerman pt Pt. seen and eval. by me.She continues to have runs of SVT. Plan for ablation on Monday. C/O of significant pain with her skin lesions.Chest clear. RRR alternating with rapid SVT. She was transferred to CCU due to the continued SVT and hypotension. Continue IV dilt. Digoxin added.
[2019-04-01] MEDS ORDERED: Propofol 500 MG/50 ML VIAL ONE ×2 (14:27)
[2019-04-01] MEDS ORDERED: Fentanyl 100 MCG/2 ML VIAL ONE (14:27)
[2019-04-01] MEDS ORDERED: Lidocaine 1% (PF) 30 ML VIAL ONE (14:31)
[2019-04-01] MEDS ORDERED: Phenylephrine HCL 10 MG/ML VIAL ONE (14:35)
[2019-04-01] MEDS ORDERED: Isoproterenol 0.2 MG/1 ML AMP ONE (15:25)
--- NOTE | 2019-04-01 22:50 | OP ---
DATE OF PROCEDURE: 04/01/2019 PROCEDURE PERFORMED: Electrophysiology study and radiofrequency ablation. REASON FOR PROCEDURE: Ms. Rodriguez is an 88-year-old woman who has history of highly symptomatic recurrent SVTs, difficult to suppress with digoxin and IV diltiazem. She is here for EP study and ablation procedure. DESCRIPTION OF PROCEDURE: The patient received propofol by Anesthesia specialist. After adequate level of sedation achieved, the left and right femoral venous area were prepped, draped, anesthetized using subcutaneous lidocaine and with ultrasound guidance, the veins were cannulated on the left side and a 6 and 8-Monegasque sheath were used to advance an octapolar and decapolar catheter through the right atrium, right ventricle, His bundle and CS location. A pace mapping and recording were performed at each location. Following findings were noted; baseline rhythm was sinus rhythm at a 1042 milliseconds cycle length, KS 243, QRS 82, QT 470 milliseconds, AH 160 milliseconds, HV 41 milliseconds. AV Wenckebach cycle length was 450 milliseconds. Retrograde Wenckebach cycle length was 420 milliseconds. Concentric retrograde VA conduction was seen. AV lian ERP was measured to be 600/280 milliseconds. Initially, no definite dual AV lian physiology was seen. At baseline, we were not able to induce arrhythmias, but with Isuprel administration 4 mcg, we were able to induce a narrow complex SVT at 3 seconds. Very short VA timing is noted typical for AV lian reentry tachycardia. Ventricular burst pacing was attempted, but due to the poorly sustained nature of the arrhythmia, it was difficult to entrain from the ventricle. On the other hand, we were able to induce this arrhythmia with atrial access to my testing after a jump again typical for AVNRT. At this point, decision was made to proceed with slow pathway modification on the right femoral vein. An 8-Monegasque short sheath was introduced in a similar fashion to the left and it was used to obtain 3D map of the right atrium with CARTO system. His bundle and CS locations were delineated. Following that, slow pathway modification was performed with the ThermoCool catheter which was used to deliver a total of 5 lesions at 3 minutes and 48 seconds at 30 [place]. Junctional rhythm was noted during the renner following the ablation. Frequent PACs were still noted on Isuprel, but SVT was not inducible. The AV Wenckebach changed to 460 milliseconds and on Isuprel, it was 300 milliseconds. No evidence of slow pathway was seen. The testing was repeated on Isuprel on and off and no SVT was re-inducible. At end of the case, cardiac silhouette did not change. The patient tolerated the procedure well. 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 2. Slow pathway modification eliminating inducibility. 3. Normal AV lian and His-Purkinje function post ablation. PLAN: Continue monitoring for recurrent arrhythmias and taper off AV lian blocking agents. Job ID: [id number] [facility]
[2019-04-02] MEDS: Levothyroxine Sodium 50 MCG TAB PO SCH (06:15)
--- NOTE | 2019-04-02 07:44 | PDOC.FM ---
- Subjective Subjective: No events overnight off of the dilt drip s/p ablation. Reports that she fells well this AM. Denies any chest pain, palpitations, SOB or N/V on exam. - Objective MAR Reviewed: Yes Vital Signs & Weight: Vital Signs (12 hours) Temp Pulse Ox 04/02/19 04:00 97.9 F 04/02/19 00:00 98.2 F 04/01/19 20:00 96 Weight Admit Weight 92.306 kg Weight 90.8 g Most Recent Monitor Data Heart Rate from ECG 68 NIBP 134/65 NIBP BP-Mean 88 Respiration from ECG 15 SpO2 94 I&O: 04/01/19 04/02/19 04/03/19 06:59 06:59 06:59 Intake Total 1556 620 Output Total 2350 1650 0 Balance -794 -1030 0 Result Diagrams: 04/01/19 08:24 04/02/19 07:50 Phys Exam - Physical Examination Constitutional: NAD HEENT: moist MMs Neck: supple, full ROM Respiratory: no wheezing, no rales, no rhonchi, clear to auscultation bilateral Cardiovascular: RRR, no significant murmur Musculoskeletal: no edema, pulses present Neurological: non-focal, moves all 4 limbs Psychiatric: normal affect, A&O x 3 Skin: normal turgor Dx/Plan (1) 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 Code(s): I50.30 - UNSPECIFIED DIASTOLIC (CONGESTIVE) HEART FAILURE Status: Chronic Qualifiers: Congestive heart failure chronicity: acute Qualified Code(s): I50.31 - Acute diastolic (congestive) heart failure (2) Supraventricular tachycardia, paroxysmal Code(s): I47.1 - SUPRAVENTRICULAR TACHYCARDIA Status: Acute (3) Bullous pemphigoid Code(s): L12.0 - BULLOUS PEMPHIGOID Status: Acute (4) HLD (hyperlipidemia) Code(s): E78.5 - HYPERLIPIDEMIA, UNSPECIFIED Status: Acute (5) HTN (hypertension) Code(s): I10 - ESSENTIAL (PRIMARY) HYPERTENSION Status: Acute Qualifiers: Hypertension type: essential hypertension Qualified Code(s): I10 - Essential (primary) hypertension (6) Hypothyroidism Code(s): E03.9 - HYPOTHYROIDISM, UNSPECIFIED Status: Acute (7) Insulin dependent diabetes mellitus Code(s): E11.9 - TYPE 2 DIABETES MELLITUS WITHOUT COMPLICATIONS; Z79.4 - FPC (CURRENT) USE OF INSULIN Status: Acute (8) Normocytic anemia Code(s): D64.9 - ANEMIA, UNSPECIFIED Status: Acute - Plan Plan: SVT, previously Afib RVR - Patient is post-op day #1 s/p ablation. Remained stable off the dilt drip overnight. - Cardiology and EP on board. Appreciate recs. Will move to telemetry floor & gradually taper off of AV lian blocking agents per EP/Cards recs. - Will continue Verapamil & digoxin. - Will continue to monitor HR and BPs closely. Congestive heart failure - Echo: EF 60-65, 1/3 diastolic dysfunction, reduced RV systolic function - Will continue QD diuresis, strict I&Os and HH, fluid restricted diet. WANDA - Renal function stable w/ eGFR in the 60s for the last several days. Suspect possible underlying CKD of at least 2. - Continue to monitor with daily BMPs - Avoid nephrotoxic medications IDDMII - Will continue lantus at 40U qAM due to persistent hypoglycemia in the AMs. - CC diet - ACHS accuchecks, hypoglycemic protocol Normocytic Anemia - Hgb stable at 12. Will continue to monitor PRN while on lovenox in the hospital. Hypothyroidism - Will continue synthroid; however, labs WNLs on admission after only 2 doses. Will need close outpatient follow-up. Acute hypoxic respiratory failure likely 2/2 pulm congestion related to Afib with RVR/CHF, resolved - Patient has been was off of O2 via nasal canula yesterday & maintained sats from 97-100% overnight. - Will continue to monitor resp status closely. Leukocytosis - WBC slightly elevated at 14.8 yesterday but no s/s of infection. Will continue to monitor. Bullous Pemphigoid with secondary infection - Wound care on board. - Will continue steroid taper - Will continue Levaquin 500mg daily for a total of 7 days Hypokalemia, resolved - K WNLs this AM. Will continue to monitor & replace with oral supplementation PRN. HTN - Continue lisinopril at 5mg QD HLD - Continue home meds Indeterminate Troponin - Trend was negative & repeat yesterday also lower than initial trops Hyponatremia, resolved - Na WNLs this AM. Will continue to monitor Dispo: Expect ~2-3 additional days as patient will need to be monitored for at least 24 hours s/p ablation and will likely require placement upon d/c.
[2019-04-02] MEDS: Lisinopril 5 MG TAB PO SCH (08:13)
[2019-04-02 08:14] LABS: Anion Gap 16 mmol/L (10-20); BUN (Urea Nitrogen) 16 mg/dL (9.8-20.1); Calc. Creatinine Clearance 0 mL/min (70-130); Calcium 9.1 mg/dL (7.8-10.44); Carbon Dioxide 25 mmol/L (23-31); Chloride 99 mmol/L (98-107); Estimated GFR-MDRD 58; Glucose 104 mg/dL (83-110); Potassium 4.1 mmol/L (3.5-5.1); Sodium 136 mmol/L (136-145)
[2019-04-02] MEDS: Digoxin 0.125 MG TAB PO SCH (08:14)
[2019-04-02] MEDS: Aspirin 81 mg Enteric Coated Tablet PO SCH (08:14)
[2019-04-02] MEDS: Senokot S 8.6-50 MG TAB PO SCH ×2 (08:14→21:03)
[2019-04-02] MEDS: Enoxaparin Sodium 40 MG/0.4 ML SYRINGE SC SCH (08:15)
[2019-04-02] MEDS: Furosemide 20 MG TAB PO SCH (08:15)
[2019-04-02] MEDS: predniSONE 20 MG TAB PO SCH (08:15)
[2019-04-02] MEDS: Magnesium Chloride 64 MG TAB PO SCH ×2 (08:15→21:02)
[2019-04-02] MEDS: Polyethylene Glycol 3350 17 GM Packet PO SCH (08:21)
[2019-04-02] MEDS: Insulin Glargine 40 UNITS in Pre-Filled Syringe 1 EACH SC SCH (09:46)
[2019-04-02] MEDS: HumaLOG 300 UNITS/3 ML VIAL SC PRN ×2 (12:07→17:52)
--- NOTE | 2019-04-02 12:09 | PRG ---
DATE OF SERVICE: 04/02/2019 Ms. Rodriguez had her ablation later yesterday. She now has a more regular rhythm with a rate of 80. She feels fine and is in no distress. Vital signs are stable again with a heart rate of around 80. She can likely be transitioned to a regular floor today and in-hospital rehabilitation for deconditioning. Job ID: [id number]
--- NOTE | 2019-04-02 15:46 | PRG ---
DATE OF SERVICE: 04/02/2019 SUBJECTIVE: Ms. Rodriguez is doing well one day after ablation. No more palpitations or dizziness are noted. OBJECTIVE: VITAL SIGNS: Blood pressure is 145/121, recheck 129/55; heart rate 93; respiration is 14; temperature 97.6 degrees Fahrenheit. GENERAL: Reveals an alert and oriented woman, in no apparent distress. NECK: Supple. Jugular veins not distended. CHEST: Coarse without crackles. HEART: Sounds are regular to rate and rhythm. No murmur or gallop. ABDOMEN: Benign. Bowel sounds positive. EXTREMITIES: Lower extremity without edema, clubbing, or cyanosis. Pulses are adequate. NEUROLOGIC: The patient is nonfocal. MUSCULOSKELETAL: Without joint swelling or deformities. SKIN: Without rash. DATABASE: The telemetry strips reviewed reveals no recurrence of SVT since ablation with normal sinus rhythm. ASSESSMENT AND PLAN: 1. Ms. Rodriguez is a pleasant 88-year-old woman with history of well-documented recurrent supraventricular tachyarrhythmias. She underwent an EP study demonstrating AV lian reentry tachycardia, which was ablated with no recurrence since. a. The groin sites seem to be healing adequately without major reaction. At this point, routine monitoring is advised. We should be able to cut off her digoxin and minimize diltiazem use. Continue verapamil if necessary for blood pressure control. 2. Bullous pemphigoid as per primary team. Routine followup in 6 weeks in the office requested. EP would sign off. Call us if any further issues. Thank you for letting me participate in the care of this patient. Job ID: [id number]
--- NOTE | 2019-04-02 16:24 | PRG ---
DATE OF SERVICE: 04/02/2019 SUBJECTIVE: Ms. Rodriguez was seen by Electrophysiology yesterday. Yesterday afternoon, she had an EP study and radiofrequency ablation. She was found to have inducible AV lian reentry tachycardia. She had slow pathway modification eliminating inducibility. She reportedly had a normal AV node and His-Purkinje function. She was transferred back to Critical Care Unit and actually looks well today. OBJECTIVE: GENERAL: She is in no distress. VITAL SIGNS: Blood pressure remains 142/86, heart rate is 87, respiratory rate is 19, oximetry is 90%. LUNGS: Clear. HEART: Regular rhythm. ABDOMEN: Soft. LABORATORY DATA: White count 14.8, hemoglobin 13.2, platelets 303 yesterday. There is no lab today. No CBC today. Electrolytes are normal today. BUN 13, creatinine 0.92, potassium 4.1. IMPRESSION: Status post radiofrequency ablation procedure for SVT. Clinically doing well. I would think she would be a candidate to go home tomorrow. She is certainly candidate to move out of Critical Care Unit. The other issue, which is not hospital issue was her bullous pemphigoid. EP signed off. We will be signing off on transfer out of the Critical Care Unit. Job ID: [id number]
[2019-04-03] MEDS: Levothyroxine Sodium 50 MCG TAB PO SCH (06:13)
[2019-04-03 06:21] VITALS: BMI 33.1
--- NOTE | 2019-04-03 06:28 | PDOC.FM ---
- Subjective Subjective: NAEO. Patient states she feels well this AM. Denies any chest pain, SOB, N/V/D but does report some constipation. - Objective MAR Reviewed: Yes Vital Signs & Weight: Vital Signs (12 hours) Pulse Ox 04/02/19 18:50 99 Weight Admit Weight 92.306 kg Weight 90.31 kg Most Recent Monitor Data Heart Rate from ECG 99 NIBP 107/70 NIBP BP-Mean 82 Respiration from ECG 12 SpO2 96 I&O: 04/01/19 04/02/19 04/03/19 06:59 06:59 06:59 Intake Total 3479 563 2809 Output Total 2350 1650 2400 Balance -794 -1030 -820 Result Diagrams: 04/01/19 08:24 04/03/19 07:07 Phys Exam - Physical Examination Constitutional: NAD HEENT: moist MMs Neck: supple, full ROM Respiratory: no wheezing, no rales, no rhonchi, clear to auscultation bilateral Cardiovascular: RRR, no significant murmur Musculoskeletal: no edema, pulses present Neurological: non-focal, moves all 4 limbs Psychiatric: normal affect, A&O x 3 Skin: normal turgor Dx/Plan (1) 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 Code(s): I50.30 - UNSPECIFIED DIASTOLIC (CONGESTIVE) HEART FAILURE Status: Chronic Qualifiers: Congestive heart failure chronicity: acute Qualified Code(s): I50.31 - Acute diastolic (congestive) heart failure (2) Supraventricular tachycardia, paroxysmal Code(s): I47.1 - SUPRAVENTRICULAR TACHYCARDIA Status: Resolved (3) Bullous pemphigoid Code(s): L12.0 - BULLOUS PEMPHIGOID Status: Acute (4) HLD (hyperlipidemia) Code(s): E78.5 - HYPERLIPIDEMIA, UNSPECIFIED Status: Acute (5) HTN (hypertension) Code(s): I10 - ESSENTIAL (PRIMARY) HYPERTENSION Status: Acute Qualifiers: Hypertension type: essential hypertension Qualified Code(s): I10 - Essential (primary) hypertension (6) Hypothyroidism Code(s): E03.9 - HYPOTHYROIDISM, UNSPECIFIED Status: Acute (7) Insulin dependent diabetes mellitus Code(s): E11.9 - TYPE 2 DIABETES MELLITUS WITHOUT COMPLICATIONS; Z79.4 - [employer] (CURRENT) USE OF INSULIN Status: Acute (8) Normocytic anemia Code(s): D64.9 - ANEMIA, UNSPECIFIED Status: Acute - Plan Plan: SVT, previously Afib RVR - Patient is post-op day #2 s/p ablation. Remained stable overnight off dilt drip and digoxin but did note some transient tachycardia into the 110s on exam this AM but patient was asymptomatic. - Cardiology and EP have signed off. Will move to telemetry floor & continue to monitor closely pending placement to a SNF for continued PT/OT. - Will continue original home dose of Verapamil & consider adding an additional AM dose due to recurrent short runs of tachycardia noted yesterday and this AM. Congestive heart failure - Echo: EF 60-65, 1/3 diastolic dysfunction, reduced RV systolic function - Will continue strict I&Os and HH, fluid restricted diet. Will stop MARY lasix as patient is satting well on RA and peripheral edema has resolved. WANDA - Renal function stable w/ eGFR in the 60s for the last several days. Suspect possible underlying CKD of at least 2. - Continue to monitor with daily BMPs - Avoid nephrotoxic medications IDDMII - Will continue lantus but will increase back up to 45U this AM due to significantly elevated BG levels over the course of the day yesterday. - CC diet - ACHS accuchecks, hypoglycemic protocol Normocytic Anemia - Hgb stable at 12. Will continue to monitor PRN while on lovenox in the hospital. Hypothyroidism - Will continue synthroid; however, labs WNLs on admission after only 2 doses. Will need close outpatient follow-up. Acute hypoxic respiratory failure likely 2/2 pulm congestion related to Afib with RVR/CHF, resolved - Patient has been was off of O2 via nasal canula yesterday & maintained sats from 97-100% overnight. - Will continue to monitor resp status closely. Leukocytosis - WBC slightly elevated at 14.8 yesterday but no s/s of infection. Will continue to monitor. Bullous Pemphigoid with secondary infection - Wound care on board. - Will continue steroid taper - s/p a 7 day course of IV levaquin for superimposed infection Hypokalemia, resolved - K WNLs this AM. Will continue to monitor & replace with oral supplementation PRN. HTN - Continue lisinopril at 5mg QD HLD - Continue home meds Indeterminate Troponin - Trend was negative & repeat yesterday also lower than initial trops Hyponatremia, resolved - Na WNLs this AM. Will continue to monitor Dispo: Anticipate d/c within the next 24 hours to HH with PT or SNF. Addendum - Attending - Attending Attestation Date/Time: 04/03/19 5045 I personally evaluated the patient and discussed the management with Dr. Antonio. I agree with the History, Examination, Assessment and Plan documented above with any addition or exceptions noted below. 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 She has had no recurrence of this issue. On Verapamil and EP has signed off. Had some episodes of tachycardia from PVCs but asymptomatic. Will clarify with Cardiology if any further mgmt warranted. She is deconditioned and we are working on placement to help her get strength back. Patient has constipation refractory to Miralax and stimulant stool softener. Will administer lactulose and enema today. Anticipate she is nearing discharge once placement decision has been made.
[2019-04-03 07:37] LABS: Anion Gap 12 mmol/L (10-20); BUN (Urea Nitrogen) 23 mg/dL (9.8-20.1); Calc. Creatinine Clearance 63 mL/min (70-130); Calcium 8.7 mg/dL (7.8-10.44); Carbon Dioxide 30 mmol/L (23-31); Chloride 98 mmol/L (98-107); Estimated GFR-MDRD 59; Glucose 143 mg/dL (83-110); Potassium 4.1 mmol/L (3.5-5.1); Sodium 136 mmol/L (136-145)
[2019-04-03] MEDS ORDERED: Furosemide 20 MG TAB PO SCH (09:00)
[2019-04-03] MEDS: Lisinopril 5 MG TAB PO SCH (10:05)
[2019-04-03] MEDS: predniSONE 20 MG TAB PO SCH (10:05)
[2019-04-03] MEDS: Senokot S 8.6-50 MG TAB PO SCH ×2 (10:05→21:14)
[2019-04-03] MEDS: Magnesium Chloride 64 MG TAB PO SCH ×2 (10:06→21:12)
[2019-04-03] MEDS: Enoxaparin Sodium 40 MG/0.4 ML SYRINGE SC SCH (10:06)
[2019-04-03] MEDS: Polyethylene Glycol 3350 17 GM Packet PO SCH (10:06)
[2019-04-03] MEDS: Aspirin 81 mg Enteric Coated Tablet PO SCH (10:06)
[2019-04-03] MEDS: Insulin Glargine 45 UNITS in Pre-Filled Syringe 1 EACH SC SCH (10:07)
[2019-04-03] MEDS: HumaLOG 300 UNITS/3 ML VIAL SC PRN ×2 (11:57→22:20)
[2019-04-03] MEDS ORDERED: Fleet Enema 133 ML BOT PR SCH (14:45)
[2019-04-03] MEDS ORDERED: Polyethylene Glycol 3350 17 GM Packet PO SCH (16:00)
--- NOTE | 2019-04-03 16:51 | EKG ---
Test Reason : Blood Pressure : / mmHG Vent. Rate : 077 BPM Atrial Rate : 077 BPM P-R Int : 186 ms QRS Dur : 084 ms QT Int : 410 ms P-R-T Axes : 045 013 -18 degrees QTc Int : 463 ms Sinus rhythm with Premature atrial complexes T wave abnormality, consider anterior ischemia Abnormal ECG Confirmed by LUIS MARSHALL ([id number]) on 04/03/2019 4:51:09 PM Referred By: Confirmed By:LUIS MARSHALL
[2019-04-03] MEDS: metFORMIN 500 MG TAB PO SCH (18:56)
[2019-04-04] MEDS: Levothyroxine Sodium 50 MCG TAB PO SCH (05:20)
--- NOTE | 2019-04-04 07:14 | PDOC.FM ---
- Subjective Subjective: Patient had multiple loose BMs overnight. Reports feeling much better this AM. Denies any N/V, fever/chills, chest pain, SOB or palpitations. - Objective MAR Reviewed: Yes Vital Signs & Weight: Vital Signs (12 hours) Temp Pulse Resp BP Pulse Ox 04/04/19 04:09 99.2 F 73 20 144/61 H 92 L 04/04/19 00:00 89 14 146/74 H 99 04/03/19 20:00 97.4 F L 102 H 17 144/71 H 97 Weight Admit Weight 92.306 kg Weight 89.086 kg Most Recent Monitor Data Heart Rate from ECG 106 NIBP 141/66 NIBP BP-Mean 91 Respiration from ECG 19 SpO2 82 I&O: 04/03/19 04/04/19 04/05/19 06:59 06:59 06:59 Intake Total 1580 600 Output Total 2400 100 Balance -820 500 Result Diagrams: 04/01/19 08:24 04/04/19 07:38 Phys Exam - Physical Examination Constitutional: NAD HEENT: moist MMs Neck: supple, full ROM Respiratory: no wheezing, no rales, no rhonchi, clear to auscultation bilateral Cardiovascular: RRR, no significant murmur Gastrointestinal: soft, non-tender, no distention, positive bowel sounds Musculoskeletal: pulses present, edema present (trace, non-pitting edema noted in B/L ankles) Neurological: non-focal, moves all 4 limbs Psychiatric: normal affect, A&O x 3 Skin: normal turgor Dx/Plan (1) 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 Code(s): I50.30 - UNSPECIFIED DIASTOLIC (CONGESTIVE) HEART FAILURE Status: Chronic Qualifiers: Congestive heart failure chronicity: acute Qualified Code(s): I50.31 - Acute diastolic (congestive) heart failure (2) Supraventricular tachycardia, paroxysmal Code(s): I47.1 - SUPRAVENTRICULAR TACHYCARDIA Status: Resolved (3) Bullous pemphigoid Code(s): L12.0 - BULLOUS PEMPHIGOID Status: Chronic (4) HLD (hyperlipidemia) Code(s): E78.5 - HYPERLIPIDEMIA, UNSPECIFIED Status: Chronic (5) HTN (hypertension) Code(s): I10 - ESSENTIAL (PRIMARY) HYPERTENSION Status: Chronic Qualifiers: Hypertension type: essential hypertension Qualified Code(s): I10 - Essential (primary) hypertension (6) Hypothyroidism Code(s): E03.9 - HYPOTHYROIDISM, UNSPECIFIED Status: Chronic (7) Insulin dependent diabetes mellitus Code(s): E11.9 - TYPE 2 DIABETES MELLITUS WITHOUT COMPLICATIONS; Z79.4 - INTERMEDIATE (CURRENT) USE OF INSULIN Status: Chronic (8) Normocytic anemia Code(s): D64.9 - ANEMIA, UNSPECIFIED Status: Chronic (9) Constipation Code(s): K59.00 - CONSTIPATION, UNSPECIFIED Status: Acute - Plan Plan: Constipation - s/p disimpaction and lactulose and enema therapy yesterday evening and had 3 loose BMs. - Will continue QD miralax and senna but will increase to 51g of miralax QD, especially in the setting of opioid use. - Will continue strict I&O to ensure regular BMs occur. SVT, previously Afib RVR, resolved - Patient is post-op day #3 s/p ablation. Does have some transient tachycardic episodes into the 110s on exam this AM but has remained asymptomatic. Per EP no need to change current med regimen based on this. - Will continue original home dose of Verapamil, 180mg HS. Congestive heart failure - Echo: EF 60-65, 1/3 diastolic dysfunction, reduced RV systolic function - Will continue strict I&Os and HH, fluid restricted diet. Will stop MARY lasix as patient is satting well on RA and peripheral edema has resolved. WANDA, resolved - Renal function stable w/ eGFR in the upper 50s-60s for the last several days. Suspect possible underlying CKD III. - Continue to monitor with daily BMPs - Avoid nephrotoxic medications IDDMII - Will continue lantus at 45U this AM due to significantly elevated BG levels over the course of the day yesterday. Also added metformin as A1c was ~9 on admission. Will consider adding mealtime insulin as well as these seem to be her highest BG levels throughout the day. - 1800 calorie CC diet - ACHS accuchecks, hypoglycemic protocol Normocytic Anemia - Hgb stable at 12. Will continue to monitor PRN while on lovenox in the hospital. Hypothyroidism - Will continue synthroid; however, labs WNLs on admission after only 2 doses. Will need close outpatient follow-up. Bullous Pemphigoid with secondary infection - Wound care on board. - Will continue steroid taper but attempt to get derm recs regarding when we can wean down to 10mg and for how long. - s/p a 7 day course of IV levaquin for superimposed infection HTN - Continue lisinopril at 5mg QD HLD - Continue home meds Indeterminate Troponin - Trend was negative & repeat yesterday also lower than initial trops Hyponatremia, resolved - Na WNLs this AM. Will continue to monitor Hypokalemia, resolved - K WNLs this AM. Will continue to monitor & replace with oral supplementation PRN. Acute hypoxic respiratory failure likely 2/2 pulm congestion related to Afib with RVR/CHF, resolved - Patient has been was off of O2 via nasal canula yesterday & maintained sats from 97-100% overnight. - Will continue to monitor resp status closely. Leukocytosis - WBC slightly elevated at 14.8 yesterday but no s/s of infection. Will continue to monitor. Dispo: Anticipate d/c within the next 24 hours to SNF in [place] pending insurance approval. Addendum - Attending - Attending Attestation Date/Time: 04/04/19 1018 I personally evaluated the patient and discussed the management with Dr. Antonio. I agree with the History, Examination, Assessment and Plan documented above with any addition or exceptions noted below. Patient doing well this morning, resting comfortably. She has been able to have multiple bowel movements since disimpaction yesterday. Her HR is stable. She is stable for transfer to [facility] whenever insurance approval occurs. We will taper down her prednisone that she is taking for bullous pemphigoid.
[2019-04-04 08:04] LABS: Anion Gap 10 mmol/L (10-20); BUN (Urea Nitrogen) 15 mg/dL (9.8-20.1); Calc. Creatinine Clearance 78 mL/min (70-130); Carbon Dioxide 29 mmol/L (23-31); Chloride 103 mmol/L (98-107); Estimated GFR-MDRD 76; Glucose 60 mg/dL (83-110); Potassium 3.9 mmol/L (3.5-5.1); Sodium 138 mmol/L (136-145)
[2019-04-04] MEDS: metFORMIN 500 MG TAB PO SCH ×2 (08:51→17:41)
[2019-04-04] MEDS: Senokot S 8.6-50 MG TAB PO SCH ×2 (08:52→20:28)
[2019-04-04] MEDS: Lisinopril 5 MG TAB PO SCH (08:52)
[2019-04-04] MEDS: predniSONE 20 MG TAB PO SCH (08:52)
[2019-04-04] MEDS: Aspirin 81 mg Enteric Coated Tablet PO SCH (08:52)
[2019-04-04] MEDS: Enoxaparin Sodium 40 MG/0.4 ML SYRINGE SC SCH (08:52)
[2019-04-04] MEDS: Insulin Glargine 45 UNITS in Pre-Filled Syringe 1 EACH SC SCH (08:53)
[2019-04-04] MEDS: Polyethylene Glycol 3350 17 GM Packet PO SCH (08:53)
[2019-04-04] MEDS ORDERED: Polyethylene Glycol 3350 17 GM Packet PO SCH (09:00)
[2019-04-04] MEDS ORDERED: Acetaminophen 325 MG TAB PO PRN (09:35)
[2019-04-04] MEDS: Magnesium Chloride 64 MG TAB PO SCH ×2 (10:25→20:27)
[2019-04-04] MEDS: HumaLOG 300 UNITS/3 ML VIAL SC PRN (17:42)
[2019-04-05 05:01] LABS: Anion Gap 12 mmol/L (10-20); BUN (Urea Nitrogen) 16 mg/dL (9.8-20.1); Calc. Creatinine Clearance 76 mL/min (70-130); Calcium 9.5 mg/dL (7.8-10.44); Carbon Dioxide 29 mmol/L (23-31); Chloride 100 mmol/L (98-107); Estimated GFR-MDRD 73; Glucose 66 mg/dL (83-110); Potassium 4.2 mmol/L (3.5-5.1); Sodium 137 mmol/L (136-145)
[2019-04-05] MEDS: Levothyroxine Sodium 50 MCG TAB PO SCH (05:44)
[2019-04-05] MEDS ORDERED: HumaLOG 300 UNITS/3 ML VIAL SC SCH (07:00)
[2019-04-05] MEDS ORDERED: Dextrose 5% in Water 1,000 ML IV PRN (07:15)
[2019-04-05] MEDS ORDERED: Dextrose 50% Abboject 50 ML SYRINGE SLOW IVP PRN (07:15)
--- NOTE | 2019-04-05 07:24 | PDOC.FM ---
- Subjective Subjective: NAEO. Patient reports that she feels well this AM. Denies any N/V or constipation. Denies any fever/chills, SOB or palpitations. Is ready to leave the hospital. - Objective MAR Reviewed: Yes Vital Signs & Weight: Vital Signs (12 hours) Temp Pulse Resp BP BP Pulse Ox 04/05/19 04:00 97.8 F 72 15 156/73 H 94 L 04/04/19 23:56 83 154/69 H 98 04/04/19 20:45 96 04/04/19 20:25 97.6 F 81 18 115/53 L 96 Weight Admit Weight 92.306 kg Weight 88.904 kg Most Recent Monitor Data Heart Rate from ECG 106 NIBP 141/66 NIBP BP-Mean 91 Respiration from ECG 19 SpO2 82 I&O: 04/04/19 04/05/19 04/06/19 06:59 06:59 06:59 Intake Total 600 960 Output Total 100 300 Balance 500 660 Result Diagrams: 04/05/19 08:02 04/05/19 04:16 Phys Exam - Physical Examination Constitutional: NAD HEENT: moist MMs Neck: supple, full ROM Respiratory: no wheezing, no rales, no rhonchi, clear to auscultation bilateral Cardiovascular: RRR, no significant murmur Gastrointestinal: soft, non-tender, no distention, positive bowel sounds Musculoskeletal: pulses present, edema present Neurological: non-focal, moves all 4 limbs Psychiatric: normal affect, A&O x 3 Skin: normal turgor Dx/Plan (1) 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 Code(s): I50.30 - UNSPECIFIED DIASTOLIC (CONGESTIVE) HEART FAILURE Status: Chronic Qualifiers: Congestive heart failure chronicity: acute Qualified Code(s): I50.31 - Acute diastolic (congestive) heart failure (2) Supraventricular tachycardia, paroxysmal Code(s): I47.1 - SUPRAVENTRICULAR TACHYCARDIA Status: Resolved (3) Bullous pemphigoid Code(s): L12.0 - BULLOUS PEMPHIGOID Status: Chronic (4) HLD (hyperlipidemia) Code(s): E78.5 - HYPERLIPIDEMIA, UNSPECIFIED Status: Chronic (5) HTN (hypertension) Code(s): I10 - ESSENTIAL (PRIMARY) HYPERTENSION Status: Chronic Qualifiers: Hypertension type: essential hypertension Qualified Code(s): I10 - Essential (primary) hypertension (6) Hypothyroidism Code(s): E03.9 - HYPOTHYROIDISM, UNSPECIFIED Status: Chronic (7) Insulin dependent diabetes mellitus Code(s): E11.9 - TYPE 2 DIABETES MELLITUS WITHOUT COMPLICATIONS; Z79.4 - SEAT MENDER (CURRENT) USE OF INSULIN Status: Chronic (8) Normocytic anemia Code(s): D64.9 - ANEMIA, UNSPECIFIED Status: Chronic (9) Constipation Code(s): K59.00 - CONSTIPATION, UNSPECIFIED Status: Acute - Plan Plan: Constipation, resolved - s/p disimpaction and lactulose and enema therapy. has had QD BMs since. - Will continue MARY miralax and senna, especially in the setting of opioid use. - Will continue strict I&O to ensure regular BMs occur regularly. SVT, previously Afib RVR, resolved - Patient is post-op day #4 s/p ablation. No events overnight. - Will continue Verapamil 180mg HS. Congestive heart failure - Echo: EF 60-65, 1/3 diastolic dysfunction, reduced RV systolic function - Will continue strict I&Os and HH, fluid restricted diet. - Will add PRN lasix if patient's weight increases by 2 or more pounds/day to prevent volume overload. WANDA, improving - eGFR in the 70s this AM since stopping MARY lasix. - Will continue to monitor with daily BMPs - Avoid nephrotoxic medications IDDMII - Will continue lantus at 45U this AM due to significantly elevated BG levels over the course of the day yesterday but will add a bedtime snack to help with AM hypoglycemia. Will consider increase mealtime insulin SSI doses as these seem to be her highest BG levels throughout the day. Will continue metformin. - 1800 calorie CC diet - ACHS accuchecks, hypoglycemia protocol Normocytic Anemia - Hgb stable at 12 on 04/01. Will continue to monitor PRN while on lovenox in the hospital. Hypothyroidism - Will continue synthroid; however, labs WNLs on admission after only 2 doses. Will need close outpatient follow-up. Bullous Pemphigoid with secondary infection - Wound care on board. - Will continue steroid taper but attempt to get derm recs regarding when we can wean down to 10mg and for how long. - s/p a 7 day course of IV levaquin for superimposed infection HTN - Continue lisinopril at 5mg QD HLD - Continue home meds Indeterminate Troponin - Trend was negative & repeat yesterday also lower than initial trops Hyponatremia, resolved - Na WNLs this AM. Will continue to monitor Hypokalemia, resolved - K WNLs this AM. Will continue to monitor & replace with oral supplementation PRN. Acute hypoxic respiratory failure likely 2/2 pulm congestion related to Afib with RVR/CHF, resolved - Patient has been was off of O2 via nasal canula yesterday & maintained sats from 97-100% overnight. - Will continue to monitor resp status closely. Leukocytosis - WBC slightly elevated at 14.8 on 04/01 but no s/s of infection then or since. Will continue to monitor. Dispo: Anticipate d/c within the next 24 hours to SNF in [place] pending insurance approval. Addendum - Attending - Attending Attestation Date/Time: 04/05/19 [id number] I personally evaluated the patient and discussed the management with Dr. Antonio. I agree with the History, Examination, Assessment and Plan documented above with any addition or exceptions noted below. Patient doing well today. No complaints. Stable for discharge and awaiting insurance approval for swing bed placement.
[2019-04-05] MEDS: HumaLOG 300 UNITS/3 ML VIAL SC SCH ×2 (07:49→12:14)
[2019-04-05] MEDS ORDERED: predniSONE 20 MG TAB PO SCH (08:00)
[2019-04-05 08:19] LABS: #Basophils 0.1 thou/uL (0.0-0.2); #Eosinphils 0.2 thou/uL (0.0-0.7); #Monocytes 0.6 thou/uL (0.11-0.59); #Neutrophils 6.7 thou/uL (1.40-6.50); %Basophils 0.6 % (0.0-1.0); %Eosinophils 2.3 % (0.0-10.0); %Lymphocytes 28.1 % (21.0-51.0); %Monocytes 5.9 % (0.0-10.0); %Neutrophils 63.2 % (42.0-75.0); Hemoglobin 13.1 g/dL (12.0-16.0); Mean Corpuscular HGB CONC 32.5 g/dL (32.0-36.0); Mean Corpuscular Hemoglobin 31.8 pg (27.0-31.0); Mean Corpuscular Volume 97.9 fL (78.0-98.0); Mean Platelet Volume 7.1 fL (7.4-10.4); Platelet Count 282 thou/uL (130-400); RBC Distribution Width 13.9 % (11.5-14.5); Red Blood Cell (RBC) Count 4.13 mill/uL (4.20-5.40); White Blood Cell (WBC) Count 10.6 thou/uL (4.8-10.8)
[2019-04-05] MEDS: Aspirin 81 mg Enteric Coated Tablet PO SCH (08:43)
[2019-04-05] MEDS: Lisinopril 5 MG TAB PO SCH (08:43)
[2019-04-05] MEDS: metFORMIN 500 MG TAB PO SCH (08:43)
[2019-04-05] MEDS: Senokot S 8.6-50 MG TAB PO SCH (08:43)
[2019-04-05] MEDS: Polyethylene Glycol 3350 17 GM Packet PO SCH (08:44)
[2019-04-05] MEDS: Enoxaparin Sodium 40 MG/0.4 ML SYRINGE SC SCH (08:44)
[2019-04-05] MEDS: Magnesium Chloride 64 MG TAB PO SCH (08:44)
[2019-04-05] MEDS: Insulin Glargine 45 UNITS in Pre-Filled Syringe 1 EACH SC SCH (09:28)
[2019-04-05 15:14] VITALS: BP 123/56; TEMP 98
--- NOTE | 2019-04-05 15:58 | DIS ---
DATE OF ADMISSION: 03/24/2019 DATE OF DISCHARGE: 04/05/2019 RESIDENT: Dr. Amanda Antonio. CONSULTS: 1. Pulmonology, Dr. Clinton Elmore. 2. Cardiology, Dr. Steve Zimmerman. 3. EP, Dr. Ernst Briseno. PROCEDURES: 1. Chest x-ray on 03/24/2019, which showed borderline to minimal cardiomegaly. 2. Brain CT on 03/24/2019, which showed no acute intracranial process. 3. Echocardiogram on 03/26/2019, which showed an EF estimated at 60% to 65% with grade 1/3 diastolic dysfunction and dilated right ventricle with reduced RV systolic function and an elevated right ventricular systolic pressure estimated at 50 mmHg. 4. Radiofrequency ablation on 04/01/2019. PRIMARY DIAGNOSES: 1. Atrial fibrillation with rapid ventricular response. 2. Refractory atrioventricular lian reentry tachycardia. 3. 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 4. Acute respiratory failure with hypoxia secondary to cardiac arrhythmia and/or congestive heart failure exacerbation. 5. New onset heart failure with preserved ejection fraction. 6. Acute kidney injury. SECONDARY DIAGNOSES: 1. Bullous pemphigoid. 2. Insulin-dependent diabetes mellitus type 2. 3. Hypothyroidism. 4. Constipation. 5. Hypertension. 6. Hyperlipidemia. DISCHARGE MEDICATIONS: 1. Verapamil 180 mg p.o. at bedtime. 2. Triamcinolone acetonide 1g topically b.i.d. 3. Niacin 100 mg p.o. b.i.d. 4. Aspirin 81 mg p.o. q.a.m. 5. [place] 5/325 one tablet p.o. q.6 hours p.r.n. 6. Drisdol 1 capsule p.o. every 7 days. 7. Calcium carbonate/vitamin D3 one tablet p.o. b.i.d. 8. Lantus 45 units subcu daily. 9. Linzess 145 mcg p.o. daily. 10. Levothyroxine 50mcg p.o. daily. 11. Metformin 500 mg p.o. b.i.d. with meals. 12. MiraLAX 51 g p.o. daily. 13. Acetaminophen 1000 mg p.o. q.6 hours p.r.n. 14. Humalog sliding scale 4 to 16 units subcu t.i.d. with meals. 15. Prednisone 10 mg p.o. q.a.m. with meals for 9 days. 16. Senokot-S 2 tablets p.o. b.i.d. 17. Lisinopril 5 mg p.o. daily. Discontinued medications; 1. Prednisone 20 mg p.o. q.a.m. with meals. 2. MiraLAX 34 g p.o. daily. HOSPITAL COURSE: The patient is an 88-year-old female with a PMH significant for hypertension, hyperlipidemia, insulin-dependent diabetes, and bullous pemphigoid, who presented to the emergency department with a chief complaint of dizziness and weakness that began approximately 3 to 4 days prior to the date of presentation. The patient reported that she typically walks with a walker, but over the last several days, it had become more difficult for her to ambulate and do regular tasks at home as she would get very easily short of breath and weak. Of note, the patient had been recently hospitalized at [facility] for bullous pemphigoid and was discharged on March 11 and reports her daughter had been home helping take care of her since. On presentation to the ED she complained of weakness with associated orthopnea, PND, and bilateral lower extremity edema & her heart rate was noted to be in the 160 to 180s and was irregularly irregular. She was determined to be in atrial fibrillation with RVR and was started on a diltiazem drip. In addition, she was placed on 2 L of oxygen to maintain adequate O2 saturations. A chest x-ray and brain CT were obtained, both of which were insignificant. Routine lab work including a CBC, CMP, CK-MB, troponin, and TSH, were obtained as well and were notable for a WBC count of 11.5, BUN and creatinine of 21 and 1.13, an initial troponin-I of 0.117 and magnesium level of 1.4. Lastly, her BNP was elevated at 629.7, so an echocardiogram was ordered for the following day. Her TSH was within normal limits and her troponin was noted to downtrend over the course of her hospitalization. However, due to her requiring diltiazem drip to regulate her heart rate, she was transferred to the telemetry floor for close monitoring overnight with plans to transition to p.o. medications for rate control as tolerated. Regarding her arrhythmia, over the course of her hospitalization, she was eventually weaned off the diltiazem drip and transitioned to her home dose of p.o. verapamil with an additional a.m. dose, which maintained a normal heart rate until approximately day 5 of hospitalization, during which she had an episode of refractory supraventricular tachycardia. The SVT was nonresponsive to a total of 30 mg of IV adenosine and she was therefore placed back on a Cardizem drip & transferred to the CCU as she was noted to be hypotensive during this episode. Cardiology, Dr. Zimmerman, and Electrophysiology, Dr. Ernst Briseno, came and evaluated the patient and recommended an ablation the following Monday on 04/01/2019. The patient remained stable on the diltiazem drip over the weekend and underwent her ablation as planned without any complications. Following her procedure, she was taken off all rate- controlling agents with the exception of her original home dosing of verapamil as she was noted to need this for adequate blood pressure control. The day following her ablation, EP and Cardiology both signed off and the patient was instructed to follow up with the Dr. Briseno within 6 weeks of discharge for outpatient monitoring. Regarding the patient's acute hypoxic respiratory failure 2/2 new onset CHF, this diagnosis was confirmed via an echocardiogram that was obtained on her third day of hospitalization, which noted grade 1/3 diastolic dysfunction and stiff right ventricle, but a preserved ejection fraction of 60% to 65%. Over the course of her hospital stay, the patient was initially given doses of IV Lasix to improve her lower extremity edema and respiratory status which was eventually transitioned to p.o. Lasix and was discontinued by the date of discharge. At that time, the patient was maintaining adequate saturations on room air and her lower extremity edema had completely resolved. She was instructed to follow up with her PCP, Dr. Mahendra Shelley, within 1 week of discharge for close monitoring of this. Regarding the patient's superinfection of her bullous pemphigoid, cultures of her wounds were obtained over the course of her hospitalization and were positive for both Serratia marcescens and Streptococcus agalactiae. She was followed closely by wound care for this and completed a full 7-day course of IV Levaquin as well. Lastly, the patient was also continued on her prednisone steroid taper prescribed by her outpatient hand former and by the date of discharge, was down to 10 mg p.o. per day, which she would continue for 9 days upon discharge. Regarding the patient's diabetes, her blood glucose levels varied greatly over the course of her hospitalization and many changes were made to her home diabetes regimen including adding scheduled premeal Humalog ranging from 4 to 16 units based on a sliding scale regimen and the addition of metformin 500 mg p.o. b.i.d. with meals as her A1c was noted to be elevated at 9.2%. These were continued upon the patient's discharge to the [facility] facility in [place]. Regarding the patient's acute kidney injury, this was suspected to be prerenal in nature as the patient had had decreased p.o. intake in the days prior to her hospitalization. Her renal function was noted to improve significantly over the course of her hospital stay and her BUN and creatinine were down to 16 and 0.75, and EGFR 73 by the date of discharge. Lastly, regarding the patient's now second recent hospitalization, she was noted to have significant physical deconditioning. Physical Therapy and Occupational Therapy worked with her for the duration of her hospital stay and it was recommended that she have a short stay in a [facility] facility for continued PT and OT to ensure adequate safety upon her return home. She was therefore cleared for discharge to Detention in [place], [place], under the supervision of Dr. Alessandra Espinal after insurance approval on 04/05/2019. DISPOSITION: Stable. DISCHARGE INSTRUCTIONS: 1. Location: [place], [place], Detention Facility at [facility]. 2. Diet: Consistent carb, heart healthy, low-sodium diet. 3. Activity: As tolerated. No restrictions. 4. Followup: The patient was instructed to follow up with her PCP, Dr. Shelley within 1 week of discharge as well as Dr. Ernst Briseno within 6 weeks of discharge. Job ID: [id number] [facility]ENTER[facility]
== END 2019-04-05 15:45 | DRG 273 ==
LOC: ERS 09:32 → ERHOLD 11:24 → 2NO 16:12 → CCU 03-29 12:52 → 2NO 04-03 12:04
PROVIDERS: ADMIT Family Medicine; ATTEND Family Medicine
PROC: 4A023FZ Measurement of Cardiac Rhythm, Percutaneous Approach (ICD-10-PCS; principal; 2019-04-01)
PROC: [UNRECOGNIZED PROCEDURE] (2019-04-01)
PROC: 4A0234Z Measurement of Cardiac Electrical Activity, Percutaneous Approach (ICD-10-PCS; 2019-04-01)
DX: I48.91 Unspecified atrial fibrillation (principal); J96.01 Acute respiratory failure with hypoxia; I50.33 Acute on chronic diastolic (congestive) heart failure; N17.9 Acute kidney failure, unspecified; L12.0 Bullous pemphigoid; E87.1 Hypo-osmolality and hyponatremia; N18.3 Chronic kidney disease, stage 3 (moderate); E11.22 Type 2 diabetes mellitus with diabetic chronic kidney disease; E03.9 Hypothyroidism, unspecified; K59.00 Constipation, unspecified; E78.5 Hyperlipidemia, unspecified; I47.1 Supraventricular tachycardia; D64.9 Anemia, unspecified; E87.6 Hypokalemia; I27.20 Pulmonary hypertension, unspecified; D72.829 Elevated white blood cell count, unspecified; I95.9 Hypotension, unspecified; I11.0 Hypertensive heart disease with heart failure; E66.9 Obesity, unspecified; Z79.4 Long term (current) use of insulin; Z68.32 Body mass index [BMI] 32.0-32.9, adult
CPT/HCPCS: 36415; 36416; 51701; 70450; 71045; 76942; 80048; 80053; 81003; 81015; 82550; 82553; 83036; 83605; 83690; 83735; 83880; 84100; 84439; 84443; 84484; 85025; 85610; 85730; 87070; 87077; 87086; 87186; 87205; 93005; 93010; 93306; 93613; 93623; 93653; 94760; 96361; 96365; 96366; 96376; A4353; C1730; C1732; C1769; J0153; J1160; J1644; J1650; J1815; J1940; J1956; J2001; J2370; J2704; J3010; J3475; J3490; J7512

== ENCOUNTER 2019-04-28 11:11 | Inpatient (IN) | payer MEDICARE ==
[2019-04-28 12:20] LABS: #Eosinphils 0.7 thou/uL (0.0-0.7); #Lymphocytes 2.8 thou/uL (1.20-3.40); #Monocytes 0.5 thou/uL (0.11-0.59); #Neutrophils 6.4 thou/uL (1.40-6.50); %Eosinophils 6.8 % (0.0-10.0); %Lymphocytes 27.1 % (21.0-51.0); %Monocytes 4.6 % (0.0-10.0); %Neutrophils 61.5 % (42.0-75.0); Hemoglobin 12.5 g/dL (12.0-16.0); Mean Corpuscular HGB CONC 33.1 g/dL (32.0-36.0); Mean Corpuscular Hemoglobin 32.9 pg (27.0-31.0); Mean Corpuscular Volume 99.3 fL (78.0-98.0); Platelet Count 446 thou/uL (130-400); RBC Distribution Width 13.3 % (11.5-14.5); White Blood Cell (WBC) Count 10.3 thou/uL (4.8-10.8)
[2019-04-28 12:45] LABS: ALT (SGPT) 9 U/L (8-55); AST (SGOT) 11 U/L (5-34); Albumin 3.5 g/dL (3.4-4.8); Alkaline Phosphatase 134 U/L (40-150); Anion Gap 15 mmol/L (10-20); BUN (Urea Nitrogen) 11 mg/dL (9.8-20.1); Bilirubin, Total 0.4 mg/dL (0.2-1.2); Calc. Creatinine Clearance 0 mL/min (70-130); Calcium 9.1 mg/dL (7.8-10.44); Carbon Dioxide 24 mmol/L (23-31); Chloride 100 mmol/L (98-107); Estimated GFR-MDRD 63; Globulin 2.7 g/dL (2.4-3.5); Glucose 325 mg/dL (83-110); Potassium 4.1 mmol/L (3.5-5.1); Protein, Total 6.2 g/dL (6.0-8.3); Sodium 135 mmol/L (136-145)
--- NOTE | 2019-04-28 12:57 | ULT ---
Exam: Left lower extremity venous ultrasound with Doppler HISTORY: Pain. COMPARISON: none TECHNIQUE: Grayscale, color flow, Doppler imaging and spectral wave analysis performed left lower ext remity venous system FINDINGS: There is compressibility, presence of flow and augmentation in the common femoral vein, and femoral v ein. There is incomplete compressibility with evidence of echogenic material and partial flow in the popliteal vein, suggesting nonocclusive thrombus. Profunda femoral vein, greater saphenous vein a nd posterior tibial vein are patent IMPRESSION: Nonocclusive thrombus in the left popliteal vein.
[2019-04-28] MEDS ORDERED: Enoxaparin Sodium 80 MG/0.8 ML SYRINGE ONE (13:23)
[2019-04-28] MEDS ORDERED: Guaifenesin DM 100-10/5 ML UDCUP PO PRN (14:23)
[2019-04-28] MEDS ORDERED: Ondansetron PF 4 MG/2 ML Vial IVP PRN (14:23)
[2019-04-28] MEDS ORDERED: Dextrose 50% Abboject 50 ML SYRINGE SLOW IVP PRN (14:29)
[2019-04-28] MEDS ORDERED: Dextrose 5% in Water 1,000 ML IV PRN (14:29)
[2019-04-28 14:51] LABS: INR-International Normal Ratio 0.9; PTT 25.7 SEC (22.9-36.1); Prothrombin Time 12.2 SEC (12.0-14.7)
--- NOTE | 2019-04-28 14:55 | PDOC.EVN ---
Event Note - Event Note Event Note: H&P #[id number]
[2019-04-28] MEDS ORDERED: Enoxaparin Sodium 100 MG/ML SYRINGE ONE (15:27)
--- NOTE | 2019-04-28 16:01 | HP ---
CHIEF COMPLAINT: Left leg pain. HISTORY OF PRESENTING ILLNESS: This is an 88-year-old female who was recently here admitted to the Family Medicine Service and discharged to the rehab facility, presenting to the hospital with left leg pain. The patient apparently also has a history of bullous pemphigoid disease, was brought into the ER, had ultrasound done of her lower extremities, and she was found to have a left popliteal vein deep vein thrombosis. The patient states that other than her left leg pain, she has also noted that her bullous disease has worsened recently. She states that no matter what happens she does not want any steroids to be given as it makes her blood sugars worse. She would just like some symptomatic control and anticoagulation for her blood clot. The patient states she has no alleviating or aggravating factors. No other complaints. No other associated symptoms or issues. The patient was seen and examined in the ER. No family at bedside. All questions answered. ALLERGIES: TO SULFA, DOES NOT KNOW WHAT HAPPENS WHEN SHE GETS SULFA. PAST MEDICAL HISTORY: Positive for; 1. Bullous pemphigoid. 2. Diabetes mellitus, type 2. 3. Hyperlipidemia. 4. Hypertension. 5. Hypothyroidism. 6. Obesity. SOCIAL HISTORY: Nondrinker and nonsmoker. FAMILY HISTORY: Noncontributory. HOME MEDICATIONS: See MAR. REVIEW OF SYSTEMS: All systems reviewed, pertinent positives in HPI, otherwise negative. PHYSICAL EXAMINATION: VITAL SIGNS: Blood pressure 111/69, pulse 85, respiratory rate of 16, temperature of 97.8, and O2 saturation 98% on room air. GENERAL: The patient is lying in bed, in no acute discomfort. HEENT: Pupils equal, round, and reactive to light and accommodation. Extraocular movements intact. Oral cavity was moist and pink. NECK: Supple, mobile, and nontender. Thyroid appreciated. LUNGS: Clear to auscultation bilaterally. HEART: Regular rate and rhythm. S1 and S2. No murmurs, rubs, or gallops appreciated. ABDOMEN: Positive bowel sounds. Soft, nontender, and nondistended. EXTREMITIES: 2+ pulses positive bilaterally. Right lower extremity has trace edema. Left lower extremity has 2+ pitting edema. NEUROLOGIC: Cranial nerves 2 through 12 intact. No loss of motor or sensory function. SKIN: Multiple bullous lesions throughout the body around the left upper extremity, left lower extremity, as well as swelling in the left lower extremity. LABORATORY DATA: Reviewed. IMAGING STUDIES: Reviewed. ASSESSMENT: 1. New onset left lower extremity deep vein thrombosis. 2. Hypertension. 3. Hyperlipidemia. 4. Diabetes mellitus, type 2. 5. Bullous pemphigoid disease. 6. Hypothyroidism. 7. Anemia. PLAN: At this point in time, we will admit the patient to Internal Medicine Team. Start the patient on full-dose Lovenox for DVT treatment. We will switch her over to p.o. in the next few days. Wound care for her bullous pemphigoid disease. The patient stated that she does not want any steroids whatsoever. However, we will continue with prednisone 5 mg daily that she has been taking for a long period of time to avoid adrenal crisis. She does state that she is refusing to take any higher level IV steroids. Continue with Lasix. Aspirin as well as atorvastatin for hypertension and hyperlipidemia. We will obtain wound care for bullous pemphigoid as mentioned earlier. Labs in the morning. We will monitor for the next 24-48 hours, can likely switch over to p.o. anticoagulation at the point in time of discharge. Case and plan discussed with the patient at length. She understood and agreed with this plan. There was no family at the bedside. Job ID: [id number]
[2019-04-28 16:25] LABS: Lactic Acid 2.5 mmol/L (0.5-2.2)
[2019-04-28] MEDS: Enoxaparin Sodium 80 MG/0.8 ML SYRINGE SC SCH (22:35)
[2019-04-28] MEDS: Insulin Glargine 5 UNITS in Pre-Filled Syringe 1 EACH SC SCH (22:35)
[2019-04-28] MEDS: Atorvastatin Calcium 20 MG TAB PO SCH (22:35)
[2019-04-29] MEDS: Acetaminophen 325 MG TAB PO PRN ×2 (00:54→20:57)
[2019-04-29] MEDS: Zolpidem Tartrate 5 MG TAB PO PRN (00:54)
[2019-04-29] MEDS: diphenhydrAMINE 25 MG CAP PO PRN ×2 (00:55→20:57)
[2019-04-29 04:47] LABS: #Eosinphils 0.9 thou/uL (0.0-0.7); #Lymphocytes 3.9 thou/uL (1.20-3.40); #Monocytes 0.6 thou/uL (0.11-0.59); #Neutrophils 6.6 thou/uL (1.40-6.50); %Basophils 0.2 % (0.0-1.0); %Eosinophils 7.2 % (0.0-10.0); %Lymphocytes 32.8 % (21.0-51.0); %Monocytes 5.1 % (0.0-10.0); %Neutrophils 54.7 % (42.0-75.0); Hemoglobin 12.5 g/dL (12.0-16.0); Mean Corpuscular Hemoglobin 32.5 pg (27.0-31.0); Mean Corpuscular Volume 98.5 fL (78.0-98.0); Mean Platelet Volume 7.2 fL (7.4-10.4); Platelet Count 476 thou/uL (130-400); RBC Distribution Width 13.3 % (11.5-14.5); Red Blood Cell (RBC) Count 3.85 mill/uL (4.20-5.40)
[2019-04-29 05:14] LABS: Anion Gap 13 mmol/L (10-20); BUN (Urea Nitrogen) 11 mg/dL (9.8-20.1); Calc. Creatinine Clearance 69 mL/min (70-130); Carbon Dioxide 25 mmol/L (23-31); Chloride 105 mmol/L (98-107); Estimated GFR-MDRD 65; Glucose 150 mg/dL (83-110); Potassium 3.8 mmol/L (3.5-5.1); Sodium 139 mmol/L (136-145)
[2019-04-29] MEDS: Furosemide 20 MG TAB PO SCH (08:36)
[2019-04-29] MEDS: Enoxaparin Sodium 80 MG/0.8 ML SYRINGE SC SCH ×2 (08:36→20:49)
[2019-04-29] MEDS: Aspirin 81 mg Enteric Coated Tablet PO SCH (08:36)
[2019-04-29] MEDS: Levothyroxine Sodium 50 MCG TAB PO SCH (08:36)
[2019-04-29] MEDS: Senokot S 8.6-50 MG TAB PO SCH ×2 (08:36→20:49)
[2019-04-29] MEDS: predniSONE 5 MG TAB PO SCH (08:36)
--- NOTE | 2019-04-29 11:40 | PDOC.HOSPP ---
- Subjective Subjective: 88 y/o female with HTN, DM and bullous pemphigoid admitted with left leg pain and found to have DVT. She also reported acute bullous eruptions involving whole body except face.No fever or SOB. - Objective Vital Signs & Weight: Vital Signs (12 hours) Temp Pulse Resp BP Pulse Ox 04/29/19 08:00 98.1 F 97 18 146/61 H 99 04/29/19 03:25 94 16 119/92 H 95 04/29/19 00:00 98 F 98 25 H 142/67 H 96 Weight Weight 208 lb 5.389 oz I&O: 04/28/19 04/29/19 04/30/19 06:59 06:59 06:59 Intake Total 300 Balance 300 Result Diagrams: 04/29/19 04:20 04/29/19 04:20 Additional Labs: Accuchecks 04/29/19 04/29/19 04/28/19 11:05 06:26 21:04 POC Glucose 250 H 124 H 192 H 04/28/19 16:59 POC Glucose 171 H ROS - Review of Systems All systems: All other ROS were reviewed and found negative. - Medication Medications: Active Medications Generic Name Dose Route Start Last Admin Trade Name Freq PRN Reason Stop Dose Admin Acetaminophen 650 mg 04/28/19 14:23 04/29/19 00:54 Tylenol PO 650 mg Q4H PRN Administration Headache/Fever/Mild Pain (1-3) Aspirin 81 mg 04/29/19 09:00 04/29/19 08:36 Ecotrin PO 81 mg QAM MARY Administration Atorvastatin Calcium 20 mg 04/28/19 21:00 04/28/19 22:35 Lipitor PO 20 mg HS MARY Administration Diphenhydramine HCl 25 mg 04/29/19 00:46 04/29/19 00:55 Benadryl PO 25 mg Q6H PRN Administration Itching & Insomnia Enoxaparin Sodium 80 mg 04/28/19 21:00 04/29/19 08:36 Lovenox SC 80 mg 0900,2100 MARY Administration Furosemide 20 mg 04/29/19 09:00 04/29/19 08:36 Lasix PO 20 mg QAM MARY Administration Insulin Glargine 5 units/ 0.05 mls @ 0 mls/hr 04/28/19 21:00 04/28/19 22:35 Miscellaneous Medication SC 0.05 mls HS MARY Administration Levothyroxine Sodium 50 mcg 04/29/19 09:00 04/29/19 08:36 Synthroid PO 50 mcg DAILY MARY Administration Prednisone 5 mg 04/29/19 08:00 04/29/19 08:36 Prednisone PO 5 mg QAM-WM MARY Administration Senna/Docusate Sodium 1 tab 04/29/19 09:00 04/29/19 08:36 Senokot S PO 1 tab BID MARY Administration Zolpidem Tartrate 5 mg 04/28/19 14:23 04/29/19 00:54 Ambien PO 5 mg HSPRN PRN Administration Insomnia - Exam awake alert (obese) Eye: anicteric sclera ENT: normocephalic atraumatic, no oropharyngeal lesions, moist mucosa Neck: supple, symmetric Heart: RRR Respiratory: no wheezes, no rales, no ronchi ([place] entry bilaterally) Gastrointestinal: soft, non-tender, non-distended, normal bowel sounds Extremities: 2+ LE edema (Left leg) Skin: normal turgor (scattered bullous erution involving the whole body except face.Also noted were erythemaouts pappules and plaques on the body) Neurological: CN's grossly intact, no focal deficits Psychiatric: normal affect, A&O x 3 Hosp A/P (1) Deep vein thrombosis (DVT) of left lower extremity Code(s): I82.402 - ACUTE EMBOLISM AND THOMBOS UNSP DEEP VEINS OF L LOW EXTREM Status: Acute (2) Constipation Code(s): K59.00 - CONSTIPATION, UNSPECIFIED Status: Acute (3) Bullous pemphigoid Code(s): L12.0 - BULLOUS PEMPHIGOID Status: Chronic (4) 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 Code(s): I50.30 - UNSPECIFIED DIASTOLIC (CONGESTIVE) HEART FAILURE Status: Chronic Qualifiers: Congestive heart failure chronicity: acute Qualified Code(s): I50.31 - Acute diastolic (congestive) heart failure (5) HLD (hyperlipidemia) Code(s): E78.5 - HYPERLIPIDEMIA, UNSPECIFIED Status: Chronic (6) HTN (hypertension) Code(s): I10 - ESSENTIAL (PRIMARY) HYPERTENSION Status: Chronic Qualifiers: Hypertension type: essential hypertension Qualified Code(s): I10 - Essential (primary) hypertension (7) Hypothyroidism Code(s): E03.9 - HYPOTHYROIDISM, UNSPECIFIED Status: Chronic (8) Insulin dependent diabetes mellitus Code(s): E11.9 - TYPE 2 DIABETES MELLITUS WITHOUT COMPLICATIONS; Z79.4 - MCFP (CURRENT) USE OF INSULIN Status: Chronic (9) Atrial fibrillation with RVR Code(s): I48.91 - UNSPECIFIED ATRIAL FIBRILLATION Status: Resolved - Plan Apply clobetasol cream to whole body. Continue Loven anticoagulation Restart verapamil and miralax. Monitor BP and adjust treatment. Get repeat CBC and BMP in the am.
[2019-04-29] MEDS ORDERED: LINZESS 145 MCG PO PRN (12:45)
[2019-04-29] MEDS ORDERED: Polyethylene Glycol 3350 17 GM Packet PO SCH (13:30)
[2019-04-29] MEDS: HumaLOG 300 UNITS/3 ML VIAL SC PRN ×2 (18:07→20:47)
[2019-04-29] MEDS: Atorvastatin Calcium 20 MG TAB PO SCH (20:45)
[2019-04-29] MEDS: Insulin Glargine 5 UNITS in Pre-Filled Syringe 1 EACH SC SCH (20:45)
[2019-04-30] MEDS: HumaLOG 300 UNITS/3 ML VIAL SC PRN ×4 (08:12→20:45)
[2019-04-30] MEDS: predniSONE 5 MG TAB PO SCH (09:59)
[2019-04-30] MEDS: Aspirin 81 mg Enteric Coated Tablet PO SCH (10:00)
[2019-04-30] MEDS: Furosemide 20 MG TAB PO SCH (10:01)
[2019-04-30] MEDS: Levothyroxine Sodium 50 MCG TAB PO SCH (10:01)
[2019-04-30] MEDS: Enoxaparin Sodium 80 MG/0.8 ML SYRINGE SC SCH ×2 (10:01→20:42)
[2019-04-30] MEDS: Polyethylene Glycol 3350 17 GM Packet PO SCH (10:02)
[2019-04-30] MEDS: Senokot S 8.6-50 MG TAB PO SCH ×2 (10:02→20:42)
[2019-04-30] MEDS: diphenhydrAMINE 25 MG CAP PO PRN (12:09)
--- NOTE | 2019-04-30 13:56 | PDOC.HOSPP ---
- Subjective Subjective: 88 y/o female with HTN, DM and bullous pemphigoid admitted with left leg pain and found to have DVT. She also reported acute bullous eruptions involving whole body except face. No new problem. No fever or SOB. - Objective Vital Signs & Weight: Vital Signs (12 hours) Temp Pulse Resp BP Pulse Ox 04/30/19 12:43 97.6 F 95 20 137/73 98 04/30/19 07:30 97.6 F 87 16 131/61 98 04/30/19 04:00 98.3 F 94 16 119/58 L 96 04/30/19 02:17 94 L Weight Admit Weight 199 lb Weight 194 lb I&O: 04/29/19 04/30/19 05/01/19 06:59 06:59 06:59 Intake Total 300 1010 718 Output Total 400 Balance 300 610 718 Result Diagrams: 04/29/19 04:20 04/29/19 04:20 Additional Labs: Accuchecks 04/30/19 04/30/19 04/29/19 11:47 05:57 20:20 POC Glucose 324 H 188 H 319 H 04/29/19 17:09 POC Glucose 380 H ROS - Review of Systems All systems: All other ROS were reviewed and found negative. - Medication Medications: Active Medications Generic Name Dose Route Start Last Admin Trade Name Freq PRN Reason Stop Dose Admin Acetaminophen 650 mg 04/28/19 14:23 04/29/19 20:57 Tylenol PO 650 mg Q4H PRN Administration Headache/Fever/Mild Pain (1-3) Aspirin 81 mg 04/29/19 09:00 04/30/19 10:00 Ecotrin PO 81 mg QAM MARY Administration Atorvastatin Calcium 20 mg 04/28/19 21:00 04/29/19 20:45 Lipitor PO 20 mg HS MARY Administration Clobetasol Propionate 0 gm 04/29/19 21:00 04/30/19 10:15 Temovate 0.05% Cream TOP 1 applic BID MARY Administration Diphenhydramine HCl 25 mg 04/29/19 00:46 04/30/19 12:09 Benadryl PO 25 mg Q6H PRN Administration Itching & Insomnia Enoxaparin Sodium 80 mg 04/28/19 21:00 04/30/19 10:01 Lovenox SC 04/30/19 23:00 80 mg 0900,2100 MARY Administration Furosemide 20 mg 04/29/19 09:00 04/30/19 10:01 Lasix PO 20 mg QAM MARY Administration Insulin Glargine 5 units/ 0.05 mls @ 0 mls/hr 04/28/19 21:00 04/29/19 20:45 Miscellaneous Medication SC 0.05 mls HS MARY Administration Insulin Human Lispro 0 units 04/28/19 14:29 04/30/19 12:09 Humalog SC 5 unit .MILD SLIDING SCALE PRN Administration Mild Correctional Scale Insulin Human Lispro 0 units 04/28/19 14:29 04/29/19 20:47 Humalog SC 4 unit .BEDTIME SLIDING SC PRN Administration Bedtime Correctional Scale Levothyroxine Sodium 50 mcg 04/29/19 09:00 04/30/19 10:01 Synthroid PO 50 mcg DAILY MARY Administration Polyethylene Glycol 34 gm 04/30/19 09:00 04/30/19 10:02 Miralax PO 34 gm DAILY MARY Administration Prednisone 5 mg 04/29/19 08:00 04/30/19 09:59 Prednisone PO 5 mg QAM-WM MARY Administration Senna/Docusate Sodium 1 tab 04/29/19 09:00 04/30/19 10:02 Senokot S PO 1 tab BID MARY Administration Verapamil HCl 180 mg 04/29/19 21:00 04/29/19 20:45 Calan Er PO 180 mg HS MARY Administration Zolpidem Tartrate 5 mg 04/28/19 14:23 04/29/19 00:54 Ambien PO 5 mg HSPRN PRN Administration Insomnia - Exam awake alert Eye: anicteric sclera ENT: normocephalic atraumatic, moist mucosa Neck: supple, no JVD Heart: RRR Respiratory: no wheezes, no rales, no ronchi Gastrointestinal: soft, non-tender, non-distended, normal bowel sounds Extremities: no cyanosis, 2+ LE edema (Left lower extremity edema) Skin: normal turgor (multiple scattered bullous eruptions as well as scattered pappules and plaques) Neurological: CN's grossly intact, no focal deficits Psychiatric: normal affect, A&O x 3 Hosp A/P (1) Deep vein thrombosis (DVT) of left lower extremity Code(s): I82.402 - ACUTE EMBOLISM AND THOMBOS UNSP DEEP VEINS OF L LOW EXTREM Status: Acute (2) Constipation Code(s): K59.00 - CONSTIPATION, UNSPECIFIED Status: Acute (3) Bullous pemphigoid Code(s): L12.0 - BULLOUS PEMPHIGOID Status: Chronic (4) 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 Code(s): I50.30 - UNSPECIFIED DIASTOLIC (CONGESTIVE) HEART FAILURE Status: Chronic Qualifiers: Congestive heart failure chronicity: acute Qualified Code(s): I50.31 - Acute diastolic (congestive) heart failure (5) HLD (hyperlipidemia) Code(s): E78.5 - HYPERLIPIDEMIA, UNSPECIFIED Status: Chronic (6) HTN (hypertension) Code(s): I10 - ESSENTIAL (PRIMARY) HYPERTENSION Status: Chronic Qualifiers: Hypertension type: essential hypertension Qualified Code(s): I10 - Essential (primary) hypertension (7) Hypothyroidism Code(s): E03.9 - HYPOTHYROIDISM, UNSPECIFIED Status: Chronic (8) Insulin dependent diabetes mellitus Code(s): E11.9 - TYPE 2 DIABETES MELLITUS WITHOUT COMPLICATIONS; Z79.4 - DANCE CHOREOGRAPHER (CURRENT) USE OF INSULIN Status: Chronic - Plan Transition lovenox to eliquis. Continue topical clobetasol Consult rheumatology. Continue other treatments.
--- NOTE | 2019-04-30 15:34 | PDOC.PALCO ---
Palliative Care Consult - Consult Details Requesting Physician: Dr Boland Reason for Consult: goals of care, symptom management Family Members Present: Niece / Spoke with daughter via phone - Pertinent HPI 88 year old female who initially presented with a rash and fluid filled lesions in January to her breasts and abdomen that were identified as Bullous pemphigoid disease by Dr Neil in [place]. Patient was transferred to [facility] for management/treatment with high dose of steroid and has been on a taper. She was also treated topically with 0/05% Clobelasol Cream. Daughter states skin improved, however they have had other chronic disease processes such as cardiac issues and patient was transferred to a swing bed in [place] to gain strength prior to returning home. Onset of left leg pain with increase in presence of Bullous phemphigoid that are more pronounced than onset in January led patient to the emergency room for evaluation and subsequent admission secondary to DVT and severity of Bullous Phemphigoid. - Pertinent PMH Bullous Pemphigoid, Diabetes Mellitus II, Hyperlipidemia, hypertension, hypothyroid, obesity, DVT - Social History Smoking Status: Never smoker Smoking: no tobacco exposure Alcohol Use: none Drug Use History: none Living Situation: other (Recently was at rehab to gain strength prior to returning home) - Medications MAR Reviewed: Yes - Allergies Allergies/Adverse Reactions: Allergies Allergy/AdvReac Type Severity Reaction Status Date / Time glipizide Allergy Verified 03/24/19 16:10 Sulfa (Sulfonamide Allergy Verified 03/24/19 16:09 Antibiotics) - Subjective Awake, alert x3. Fair historian. In recliner to bedside secondary to increase in severity of rash/bollus wounds to all of body except face. ROS: Itching, pain to open wounds, pain to left lower extremity. Denies chest pain, shortness of breath, nausea, diarrhea, alteration in vision, no breakdown/ lesions to oral mucousa. - Objective Vital Signs: Vital Signs - Most Recent Temp Pulse Resp BP Pulse Ox 97.6 F 95 20 137/73 98 04/30/19 12:43 04/30/19 12:43 04/30/19 12:43 04/30/19 12:43 04/30/19 12:43 Palliative Performance Scale: 40 - Physical Exam Constitutional: NAD HEENT: moist MMs, EOMI Respiratory: wheezing present (Wheezing to upper lobes on expiration that is minimal) Deviation from normal: Mild labored respirations with increase in activity observed Cardiovascular: RRR Gastrointestinal: soft, non-tender, positive bowel sounds Musculoskeletal: edema present Deviation from normal: More pronounced to left lower extremity Psychiatric: A&O x 3 Deviation from normal: Mildly anxious related to increase in skin lesions Deviation from normal: Multiple bullous lesions both open and closed to extremities and trunk - Problem List (1) Palliative care encounter Code(s): Z51.5 - ENCOUNTER FOR PALLIATIVE CARE Current Visit: Yes Status: Acute (2) Deep vein thrombosis (DVT) of left lower extremity Code(s): I82.402 - ACUTE EMBOLISM AND THOMBOS UNSP DEEP VEINS OF L LOW EXTREM Current Visit: Yes Status: Acute Qualifiers: Chronicity: acute (3) Bullous pemphigoid Code(s): L12.0 - BULLOUS PEMPHIGOID Current Visit: No Status: Acute - Plan/Recommendations Plan: Discussed history with patient and patient daughter Jeanette. Dr Neil has seen patient in the past . Previously treated with high dose of prednisone with taper, patient does not desire to have steroids again, however the severity of presentation of the Bullous Pemphigoid may call for further discussion with patient and family. Currently Dr Boland has ordered topical Clobelasol to manage skin breakdown. *Schedule Benadryl to decrease itching * Follow up 05/01 to assist with patient support and complex decision making. [80] minutes spent on this encounter with >50% of the time in counseling and coordination of care. Thank you for this very appropriate consult.
[2019-04-30] MEDS: Atorvastatin Calcium 20 MG TAB PO SCH (20:42)
[2019-04-30] MEDS: Insulin Glargine 5 UNITS in Pre-Filled Syringe 1 EACH SC SCH (20:43)
[2019-04-30] MEDS: diphenhydrAMINE 25 MG CAP PO SCH (21:04)
[2019-04-30] MEDS: Acetaminophen 325 MG TAB PO PRN (21:08)
[2019-05-01] MEDS: HYDROcodone/Acetaminophen 7.5/325 mg Tablet PO PRN ×2 (02:51→11:37)
[2019-05-01 04:51] LABS: #Eosinphils 1.4 thou/uL (0.0-0.7); #Lymphocytes 3.8 thou/uL (1.20-3.40); #Monocytes 0.6 thou/uL (0.11-0.59); #Neutrophils 7.5 thou/uL (1.40-6.50); %Basophils 0.1 % (0.0-1.0); %Eosinophils 10.4 % (0.0-10.0); %Lymphocytes 28.9 % (21.0-51.0); %Monocytes 4.3 % (0.0-10.0); %Neutrophils 56.2 % (42.0-75.0); Mean Corpuscular HGB CONC 32.7 g/dL (32.0-36.0); Mean Corpuscular Hemoglobin 32.5 pg (27.0-31.0); Mean Corpuscular Volume 99.4 fL (78.0-98.0); Mean Platelet Volume 7.4 fL (7.4-10.4); Platelet Count 451 thou/uL (130-400); RBC Distribution Width 13.2 % (11.5-14.5); White Blood Cell (WBC) Count 13.3 thou/uL (4.8-10.8)
[2019-05-01 05:19] LABS: ALT (SGPT) 9 U/L (8-55); AST (SGOT) 12 U/L (5-34); Albumin 3.5 g/dL (3.4-4.8); Alkaline Phosphatase 142 U/L (40-150); Anion Gap 17 mmol/L (10-20); BUN (Urea Nitrogen) 16 mg/dL (9.8-20.1); Bilirubin, Total 0.5 mg/dL (0.2-1.2); Calc. Creatinine Clearance 56 mL/min (70-130); Calcium 8.7 mg/dL (7.8-10.44); Carbon Dioxide 19 mmol/L (23-31); Chloride 98 mmol/L (98-107); Estimated GFR-MDRD 53; Globulin 3.1 g/dL (2.4-3.5); Glucose 282 mg/dL (83-110); Protein, Total 6.6 g/dL (6.0-8.3); Sodium 130 mmol/L (136-145)
[2019-05-01] MEDS: diphenhydrAMINE 25 MG CAP PO SCH ×3 (06:34→20:49)
[2019-05-01] MEDS: Polyethylene Glycol 3350 17 GM Packet PO SCH (09:44)
[2019-05-01] MEDS: Apixaban 5 MG TAB PO SCH ×2 (09:44→20:49)
[2019-05-01] MEDS: Aspirin 81 mg Enteric Coated Tablet PO SCH (09:44)
[2019-05-01] MEDS: Furosemide 20 MG TAB PO SCH (09:45)
[2019-05-01] MEDS: Levothyroxine Sodium 50 MCG TAB PO SCH (09:45)
[2019-05-01] MEDS: predniSONE 5 MG TAB PO SCH (09:45)
[2019-05-01] MEDS: Senokot S 8.6-50 MG TAB PO SCH ×2 (09:45→20:49)
[2019-05-01] MEDS ORDERED: methylPREDNISolone Sod Succ/PF 125 MG/2 ML VIAL IVP SCH (11:00)
[2019-05-01] MEDS ORDERED: Insulin Glargine 20 UNITS in Pre-Filled Syringe 1 EACH SC SCH (11:00)
[2019-05-01] MEDS: HumaLOG 300 UNITS/3 ML VIAL SC PRN ×3 (11:41→20:51)
--- NOTE | 2019-05-01 12:28 | PDOC.HOSPP ---
- Subjective Encounter Date: 05/01/19 Encounter Time: 10:36 Subjective: 88 y/o female with HTN, DM and bullous pemphigoid admitted with left leg pain and worsening bullous eruption on the skin. Found to have DVT. eruptions are getting worse and painful. No fever. Patient who declined systemic steroid on presentation now is open to it. - Objective Vital Signs & Weight: Vital Signs (12 hours) Temp Pulse Resp BP Pulse Ox 05/01/19 03:53 97.5 F L 87 18 123/89 96 Weight Admit Weight 199 lb Weight 195 lb 1.6 oz I&O: 04/30/19 05/01/19 05/02/19 06:59 06:59 06:59 Intake Total 1010 1478 Output Total 400 240 Balance 610 1238 Result Diagrams: 05/01/19 04:23 05/01/19 04:23 Additional Labs: Accuchecks 05/01/19 05/01/19 04/30/19 11:12 06:01 20:08 POC Glucose 375 H 279 H 348 H 04/30/19 18:15 POC Glucose 336 H ROS - Medication Medications: Active Medications Generic Name Dose Route Start Last Admin Trade Name Freq PRN Reason Stop Dose Admin Acetaminophen 650 mg 04/28/19 14:23 04/30/19 21:08 Tylenol PO 650 mg Q4H PRN Administration Headache/Fever/Mild Pain (1-3) Hydrocodone Bitart/Acetaminophen 1 tab 04/28/19 14:23 05/01/19 11:37 [place] 7.5/325 PO 1 tab Q4H PRN Administration Moderate Pain (4-6) Apixaban 5 mg 05/01/19 09:00 05/01/19 09:44 Eliquis PO 5 mg BID MARY Administration Aspirin 81 mg 04/29/19 09:00 05/01/19 09:44 Ecotrin PO 81 mg QAM MARY Administration Atorvastatin Calcium 20 mg 04/28/19 21:00 04/30/19 20:42 Lipitor PO 20 mg HS MARY Administration Diphenhydramine HCl 25 mg 04/30/19 22:00 05/01/19 06:34 Benadryl PO 25 mg Q8HR MARY Administration Furosemide 20 mg 04/29/19 09:00 05/01/19 09:45 Lasix PO 20 mg QAM MARY Administration Insulin Human Lispro 0 units 08/04/19 14:29 05/01/19 11:41 Humalog SC 6 unit .MILD SLIDING SCALE PRN Administration Mild Correctional Scale Insulin Human Lispro 0 units 04/28/19 14:29 04/30/19 20:45 Humalog SC 4 unit .BEDTIME SLIDING SC PRN Administration Bedtime Correctional Scale Polyethylene Glycol 34 gm 04/30/19 09:00 05/01/19 09:44 Miralax PO 34 gm DAILY MARY Administration Senna/Docusate Sodium 1 tab 04/29/19 09:00 05/01/19 09:45 Senokot S PO 1 tab BID MARY Administration Verapamil HCl 180 mg 04/29/19 21:00 04/30/19 20:51 Calan Er PO 180 mg HS MARY Administration Zolpidem Tartrate 5 mg 04/28/19 14:23 04/29/19 00:54 Ambien PO 5 mg HSPRN PRN Administration Insomnia - Exam awake alert Eye: anicteric sclera ENT: normocephalic atraumatic, moist mucosa Neck: supple Heart: RRR Respiratory - other findings: Fair air entry bilaterally with few transmitted sound. No ovbious crackles Gastrointestinal: soft, non-tender, non-distended, normal bowel sounds Extremeties - other findings: Left lower extremity edema noted Skin - other findings: multiple bullous eruptions of different sizes all over the body Neurological: CN's grossly intact, no focal deficits Hosp A/P (1) Deep vein thrombosis (DVT) of left lower extremity Code(s): I82.402 - ACUTE EMBOLISM AND THOMBOS UNSP DEEP VEINS OF L LOW EXTREM Status: Acute Qualifiers: Chronicity: acute (2) Constipation Code(s): K59.00 - CONSTIPATION, UNSPECIFIED Status: Acute (3) Bullous pemphigoid Code(s): L12.0 - BULLOUS PEMPHIGOID Status: Acute (4) 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 Code(s): I50.30 - UNSPECIFIED DIASTOLIC (CONGESTIVE) HEART FAILURE Status: Chronic Qualifiers: Congestive heart failure chronicity: chronic Qualified Code(s): I50.32 - Chronic diastolic (congestive) heart failure (5) HLD (hyperlipidemia) Code(s): E78.5 - HYPERLIPIDEMIA, UNSPECIFIED Status: Chronic (6) HTN (hypertension) Code(s): I10 - ESSENTIAL (PRIMARY) HYPERTENSION Status: Chronic Qualifiers: Hypertension type: essential hypertension Qualified Code(s): I10 - Essential (primary) hypertension (7) Hypothyroidism Code(s): E03.9 - HYPOTHYROIDISM, UNSPECIFIED Status: Chronic (8) Insulin dependent diabetes mellitus Code(s): E11.9 - TYPE 2 DIABETES MELLITUS WITHOUT COMPLICATIONS; Z79.4 - LOCOMOTIVE ENGINEER (CURRENT) USE OF INSULIN Status: Chronic (9) Hyponatremia Code(s): E87.1 - HYPO-OSMOLALITY AND HYPONATREMIA Status: Acute - Plan Start Systemic steroid with solumedrol 80 mg x1. increase lantus to 20 units bid. Continue sliding scale insulin. Transition lovenox to eliquis. Continue other treatments. EHR recommended outpatient status but this patient on presentation has about 205 of body covered with bullous lesion which should be treated as renner. She also is at increased risk of cellulitis. Moreover, its is postulated that the acute DVT triggered the bullous eruptions.
[2019-05-01] MEDS: Insulin Glargine 20 UNITS in Pre-Filled Syringe 1 EACH SC SCH (20:49)
[2019-05-01] MEDS: traMADol HCl 50 MG TAB PO PRN (20:49)
[2019-05-01] MEDS: Atorvastatin Calcium 20 MG TAB PO SCH (20:49)
[2019-05-01] MEDS: Zolpidem Tartrate 5 MG TAB PO PRN (20:50)
[2019-05-02 04:58] LABS: #Eosinphils 0.1 thou/uL (0.0-0.7); #Lymphocytes 2.4 thou/uL (1.20-3.40); #Monocytes 0.4 thou/uL (0.11-0.59); #Neutrophils 10.1 thou/uL (1.40-6.50); %Basophils 0.1 % (0.0-1.0); %Eosinophils 0.9 % (0.0-10.0); %Lymphocytes 18.1 % (21.0-51.0); %Monocytes 2.8 % (0.0-10.0); %Neutrophils 78.1 % (42.0-75.0); Hemoglobin 12.1 g/dL (12.0-16.0); Mean Corpuscular HGB CONC 33.8 g/dL (32.0-36.0); Mean Corpuscular Hemoglobin 32.5 pg (27.0-31.0); Mean Corpuscular Volume 96.2 fL (78.0-98.0); Mean Platelet Volume 7.1 fL (7.4-10.4); Platelet Count 513 thou/uL (130-400); RBC Distribution Width 12.8 % (11.5-14.5); Red Blood Cell (RBC) Count 3.73 mill/uL (4.20-5.40); White Blood Cell (WBC) Count 12.9 thou/uL (4.8-10.8)
[2019-05-02 05:18] LABS: Anion Gap 15 mmol/L (10-20); BUN (Urea Nitrogen) 17 mg/dL (9.8-20.1); Calc. Creatinine Clearance 61 mL/min (70-130); Calcium 8.9 mg/dL (7.8-10.44); Carbon Dioxide 23 mmol/L (23-31); Chloride 97 mmol/L (98-107); Estimated GFR-MDRD 57; Glucose 378 mg/dL (83-110); Potassium 4.8 mmol/L (3.5-5.1); Sodium 130 mmol/L (136-145)
[2019-05-02] MEDS: diphenhydrAMINE 25 MG CAP PO SCH ×3 (05:38→21:25)
[2019-05-02] MEDS: Levothyroxine Sodium 50 MCG TAB PO SCH (05:38)
[2019-05-02] MEDS: Aspirin 81 mg Enteric Coated Tablet PO SCH (08:24)
[2019-05-02] MEDS: Apixaban 5 MG TAB PO SCH ×2 (08:24→21:23)
[2019-05-02] MEDS: Senokot S 8.6-50 MG TAB PO SCH ×2 (08:24→21:24)
[2019-05-02] MEDS: Polyethylene Glycol 3350 17 GM Packet PO SCH (08:25)
[2019-05-02] MEDS: Furosemide 20 MG TAB PO SCH (08:25)
[2019-05-02] MEDS: HumaLOG 300 UNITS/3 ML VIAL SC PRN ×4 (08:28→21:29)
[2019-05-02] MEDS: Insulin Glargine 20 UNITS in Pre-Filled Syringe 1 EACH SC SCH (08:31)
[2019-05-02] MEDS ORDERED: Insulin Glargine 30 UNITS in Pre-Filled Syringe 1 EACH SC SCH (09:00)
[2019-05-02] MEDS: predniSONE 20 MG TAB PO SCH (09:00)
[2019-05-02] MEDS: HYDROcodone/Acetaminophen 7.5/325 mg Tablet PO PRN (09:00)
[2019-05-02] MEDS ORDERED: Insulin Glargine 10 UNITS in Pre-Filled Syringe 1 EACH SC SCH (09:00)
[2019-05-02] MEDS: HumaLOG 300 UNITS/3 ML VIAL SC SCH ×2 (11:12→17:03)
--- NOTE | 2019-05-02 11:12 | PDOC.HOSPP ---
- Subjective Encounter Date: 05/02/19 Encounter Time: 09:10 Subjective: 88 y/o female with HTN, DM and bullous pemphigoid admitted with left leg pain and worsening bullous eruption on the skin. Found to have DVT. Started on high dose steroid. Report feeling better. No fever. - Objective Vital Signs & Weight: Vital Signs (12 hours) Temp Pulse Resp BP BP Pulse Ox 05/02/19 08:23 97.6 F 87 18 130/60 97 05/02/19 04:00 98.1 F 86 16 123/56 L 96 05/01/19 23:24 97.4 F L 86 16 98 Weight Admit Weight 199 lb Weight 195 lb 1.6 oz I&O: 05/01/19 05/02/19 05/03/19 06:59 06:59 06:59 Intake Total 1478 720 Output Total 240 Balance 1238 720 Result Diagrams: 05/02/19 04:32 05/02/19 04:32 Additional Labs: Accuchecks 05/02/19 05/01/19 05/01/19 05:36 20:34 16:34 POC Glucose 364 H 495 H 475 H 05/01/19 11:12 POC Glucose 375 H ROS - Medication Medications: Active Medications Generic Name Dose Route Start Last Admin Trade Name Freq PRN Reason Stop Dose Admin Acetaminophen 650 mg 04/28/19 14:23 04/30/19 21:08 Tylenol PO 650 mg Q4H PRN Administration Headache/Fever/Mild Pain (1-3) Hydrocodone Bitart/Acetaminophen 1 tab 04/28/19 14:23 05/02/19 09:00 [place] 7.5/325 PO 1 tab Q4H PRN Administration Moderate Pain (4-6) Apixaban 5 mg 05/01/19 09:00 05/02/19 08:24 Eliquis PO 5 mg BID MARY Administration Aspirin 81 mg 04/29/19 09:00 05/02/19 08:24 Ecotrin PO 81 mg QAM MARY Administration Atorvastatin Calcium 20 mg 04/28/19 21:00 05/01/19 20:49 Lipitor PO 20 mg HS MARY Administration Diphenhydramine HCl 25 mg 04/30/19 22:00 05/02/19 05:38 Benadryl PO 25 mg Q8HR MARY Administration Furosemide 20 mg 04/29/19 09:00 05/02/19 08:25 Lasix PO 20 mg QAM MARY Administration Levothyroxine Sodium 50 mcg 05/02/19 06:00 05/02/19 05:38 Synthroid PO 50 mcg 0600 MARY Administration Polyethylene Glycol 34 gm 04/30/19 09:00 05/02/19 08:25 Miralax PO 34 gm DAILY MARY Administration Prednisone 40 mg 05/02/19 09:00 05/02/19 09:00 Prednisone PO 40 mg DAILY MARY Administration Senna/Docusate Sodium 1 tab 04/29/19 09:00 05/02/19 08:24 Senokot S PO 1 tab BID MARY Administration Sodium Chloride 10 ml 05/02/19 09:00 05/02/19 09:02 Flush - Normal Saline IVF 10 ml Q12HR MARY Administration Tramadol HCl 50 mg 04/28/19 18:21 05/01/19 20:49 Ultram PO 50 mg Q12H PRN Administration Moderate Pain (4-6) Verapamil HCl 180 mg 04/29/19 21:00 05/01/19 20:49 Calan Er PO 180 mg HS MARY Administration Zolpidem Tartrate 5 mg 04/28/19 14:23 05/01/19 20:50 Ambien PO 5 mg HSPRN PRN Administration Insomnia - Exam awake alert General - other findings: obese, afebrile Eye: anicteric sclera ENT: normocephalic atraumatic, moist mucosa Neck: supple Heart: RRR Respiratory: no wheezes, no rales, no ronchi Gastrointestinal: soft, non-tender, non-distended, normal bowel sounds Gastrointestinal - other findings: obese Extremities: 2+ LE edema Extremeties - other findings: left leg/foot Skin - other findings: Multiple blisters as well as erythematous plaques noted Neurological: CN's grossly intact, no focal deficits Psychiatric: normal affect, normal behavior, A&O x 3 Hosp A/P (1) Deep vein thrombosis (DVT) of left lower extremity Code(s): I82.402 - ACUTE EMBOLISM AND THOMBOS UNSP DEEP VEINS OF L LOW EXTREM Status: Acute Qualifiers: Chronicity: acute (2) Constipation Code(s): K59.00 - CONSTIPATION, UNSPECIFIED Status: Acute (3) Bullous pemphigoid Code(s): L12.0 - BULLOUS PEMPHIGOID Status: Acute (4) 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 Code(s): I50.30 - UNSPECIFIED DIASTOLIC (CONGESTIVE) HEART FAILURE Status: Chronic Qualifiers: Congestive heart failure chronicity: chronic Qualified Code(s): I50.32 - Chronic diastolic (congestive) heart failure (5) HLD (hyperlipidemia) Code(s): E78.5 - HYPERLIPIDEMIA, UNSPECIFIED Status: Chronic (6) HTN (hypertension) Code(s): I10 - ESSENTIAL (PRIMARY) HYPERTENSION Status: Chronic Qualifiers: Hypertension type: essential hypertension Qualified Code(s): I10 - Essential (primary) hypertension (7) Hypothyroidism Code(s): E03.9 - HYPOTHYROIDISM, UNSPECIFIED Status: Chronic (8) Insulin dependent diabetes mellitus Code(s): E11.9 - TYPE 2 DIABETES MELLITUS WITHOUT COMPLICATIONS; Z79.4 - SAP INTEGRATION ARCHITECT (CURRENT) USE OF INSULIN Status: Chronic (9) Hyponatremia Code(s): E87.1 - HYPO-OSMOLALITY AND HYPONATREMIA Status: Acute (10) Hyperglycemia, drug-induced Code(s): R73.9 - HYPERGLYCEMIA, UNSPECIFIED; T50.905A - ADVERSE EFFECT OF UNSP DRUG/MEDS/BIOL SUBST, INIT Status: Acute - Plan Start oral prednisone 40 mg daily increase lantus to 30 units bid. Start humalog 4 units with meals and change to medium dose sliding scale insulin. Continue eliquis Continue other treatments. wound care to continue.
[2019-05-02] MEDS ORDERED: Bisacodyl 10 MG SUPP PR SCH (18:15)
[2019-05-02] MEDS: Atorvastatin Calcium 20 MG TAB PO SCH (21:23)
[2019-05-02] MEDS: Zolpidem Tartrate 5 MG TAB PO PRN (21:26)
[2019-05-02] MEDS: Insulin Glargine 30 UNITS in Pre-Filled Syringe 1 EACH SC SCH (21:27)
[2019-05-03] MEDS: Levothyroxine Sodium 50 MCG TAB PO SCH (05:03)
[2019-05-03] MEDS: HYDROcodone/Acetaminophen 7.5/325 mg Tablet PO PRN ×3 (05:04→20:21)
[2019-05-03] MEDS: diphenhydrAMINE 25 MG CAP PO SCH ×3 (05:04→21:35)
[2019-05-03] MEDS: HumaLOG 300 UNITS/3 ML VIAL SC SCH ×3 (09:49→17:43)
[2019-05-03] MEDS: predniSONE 20 MG TAB PO SCH (09:50)
[2019-05-03] MEDS: Insulin Glargine 30 UNITS in Pre-Filled Syringe 1 EACH SC SCH ×2 (09:50→21:35)
[2019-05-03] MEDS: Polyethylene Glycol 3350 17 GM Packet PO SCH (09:50)
[2019-05-03] MEDS: Aspirin 81 mg Enteric Coated Tablet PO SCH (09:51)
[2019-05-03] MEDS: Furosemide 20 MG TAB PO SCH (09:51)
[2019-05-03] MEDS: Senokot S 8.6-50 MG TAB PO SCH ×2 (09:51→20:23)
[2019-05-03] MEDS: Apixaban 5 MG TAB PO SCH ×2 (09:51→20:23)
--- NOTE | 2019-05-03 11:54 | PDOC.HOSPP ---
- Subjective Encounter Date: 05/03/19 Encounter Time: 08:53 Subjective: 88 y/o female with HTN, DM and bullous pemphigoid admitted with left leg pain and worsening bullous eruption on the skin. Found to have DVT. On treatment with steroid and oral anticoagulant. No fever or skin redness. Constipation has resolved. Report feeling better. - Objective Vital Signs & Weight: Vital Signs (12 hours) Temp Pulse Resp BP Pulse Ox 05/03/19 08:00 98.3 F 78 18 133/60 95 05/03/19 05:27 98 Weight Admit Weight 199 lb Weight 199 lb 4.766 oz I&O: 05/02/19 05/03/19 05/04/19 06:59 06:59 06:59 Intake Total 720 1820 240 Output Total 400 Balance 720 1420 240 Result Diagrams: 05/02/19 04:32 05/02/19 04:32 Additional Labs: Accuchecks 05/03/19 05/03/19 05/02/19 11:19 05:24 20:35 POC Glucose 201 H 125 H 275 H 05/02/19 16:44 POC Glucose 284 H ROS - Medication Medications: Active Medications Generic Name Dose Route Start Last Admin Trade Name Freq PRN Reason Stop Dose Admin Acetaminophen 650 mg 04/28/19 14:23 04/30/19 21:08 Tylenol PO 650 mg Q4H PRN Administration Headache/Fever/Mild Pain (1-3) Hydrocodone Bitart/Acetaminophen 1 tab 04/28/19 14:23 05/03/19 10:02 [place] 7.5/325 PO 1 tab Q4H PRN Administration Moderate Pain (4-6) Apixaban 5 mg 05/01/19 09:00 05/03/19 09:51 Eliquis PO 5 mg BID MARY Administration Aspirin 81 mg 04/29/19 09:00 05/03/19 09:51 Ecotrin PO 81 mg QAM MARY Administration Atorvastatin Calcium 20 mg 04/28/19 21:00 05/02/19 21:23 Lipitor PO 20 mg HS MARY Administration Diphenhydramine HCl 25 mg 04/30/19 22:00 05/03/19 05:04 Benadryl PO 25 mg Q8HR MARY Administration Furosemide 20 mg 04/29/19 09:00 05/03/19 09:51 Lasix PO 20 mg QAM MARY Administration Insulin Glargine 30 units/ 0.3 mls @ 0.2 mls/hr 05/02/19 21:00 05/03/19 09:50 Miscellaneous Medication SC 0.3 mls BID MARY Administration Insulin Human Lispro 4 units 05/03/19 08:00 05/03/19 09:49 Humalog SC Not Given 0800 MARY Insulin Human Lispro 4 units 05/02/19 12:00 05/02/19 11:12 Humalog SC 4 unit 1200 MARY Administration Insulin Human Lispro 4 units 05/02/19 17:00 05/02/19 17:03 Humalog SC 4 unit 1700 MARY Administration Insulin Human Lispro 0 units 05/02/19 08:37 05/02/19 21:29 Humalog SC 6 unit .MODERATE SLIDING SC PRN Administration Moderate Correctional Scale Levothyroxine Sodium 50 mcg 05/02/19 06:00 05/03/19 05:03 Synthroid PO 50 mcg 0600 MARY Administration Polyethylene Glycol 34 gm 04/30/19 09:00 05/03/19 09:50 Miralax PO 34 gm DAILY MARY Administration Prednisone 40 mg 05/02/19 09:00 05/03/19 09:50 Prednisone PO 40 mg DAILY MARY Administration Senna/Docusate Sodium 1 tab 04/29/19 09:00 05/03/19 09:51 Senokot S PO 1 tab BID MARY Administration Sodium Chloride 10 ml 05/02/19 09:00 05/03/19 09:51 Flush - Normal Saline IVF 10 ml Q12HR MARY Administration Tramadol HCl 50 mg 04/28/19 18:21 05/01/19 20:49 Ultram PO 50 mg Q12H PRN Administration Moderate Pain (4-6) Verapamil HCl 180 mg 04/29/19 21:00 05/02/19 21:24 Calan Er PO 180 mg HS MARY Administration Zolpidem Tartrate 5 mg 04/28/19 14:23 05/02/19 21:26 Ambien PO 5 mg HSPRN PRN Administration Insomnia - Exam awake alert Eye: PERRL ENT: normocephalic atraumatic Heart: RRR Respiratory: no wheezes, no rales, no ronchi Gastrointestinal: soft, non-tender, non-distended, normal bowel sounds Gastrointestinal - other findings: obese Extremities: no cyanosis Extremeties - other findings: Left leg edema noted Skin - other findings: Scattered bullous erutions and erythematous plaques noted on the body/limbs Neurological: CN's grossly intact, no focal deficits Psychiatric: A&O x 3 Hosp A/P (1) Deep vein thrombosis (DVT) of left lower extremity Code(s): I82.402 - ACUTE EMBOLISM AND THOMBOS UNSP DEEP VEINS OF L LOW EXTREM Status: Acute Qualifiers: Chronicity: acute (2) Bullous pemphigoid Code(s): L12.0 - BULLOUS PEMPHIGOID Status: Acute (3) 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 Code(s): I50.30 - UNSPECIFIED DIASTOLIC (CONGESTIVE) HEART FAILURE Status: Chronic Qualifiers: Congestive heart failure chronicity: chronic Qualified Code(s): I50.32 - Chronic diastolic (congestive) heart failure (4) HLD (hyperlipidemia) Code(s): E78.5 - HYPERLIPIDEMIA, UNSPECIFIED Status: Chronic (5) HTN (hypertension) Code(s): I10 - ESSENTIAL (PRIMARY) HYPERTENSION Status: Chronic Qualifiers: Hypertension type: essential hypertension Qualified Code(s): I10 - Essential (primary) hypertension (6) Hypothyroidism Code(s): E03.9 - HYPOTHYROIDISM, UNSPECIFIED Status: Chronic (7) Insulin dependent diabetes mellitus Code(s): E11.9 - TYPE 2 DIABETES MELLITUS WITHOUT COMPLICATIONS; Z79.4 - LONG-TERM (CURRENT) USE OF INSULIN Status: Chronic (8) Hyponatremia Code(s): E87.1 - HYPO-OSMOLALITY AND HYPONATREMIA Status: Acute (9) Hyperglycemia, drug-induced Code(s): R73.9 - HYPERGLYCEMIA, UNSPECIFIED; T50.905A - ADVERSE EFFECT OF UNSP DRUG/MEDS/BIOL SUBST, INIT Status: Acute (10) Physical deconditioning Code(s): R53.81 - OTHER MALAISE Status: Acute (11) Constipation Code(s): K59.00 - CONSTIPATION, UNSPECIFIED Status: Acute - Plan Continue oral prednisone 40 mg daily and insulin therapy Continue eliquis Continue other treatments. wound care to continue. PT/OT eval and treat. For discharge once placement is concluded
[2019-05-03] MEDS: Atorvastatin Calcium 20 MG TAB PO SCH (20:23)
[2019-05-03] MEDS ORDERED: HumaLOG 300 UNITS/3 ML VIAL SC PRN (21:07)
[2019-05-04] MEDS: Levothyroxine Sodium 50 MCG TAB PO SCH (05:33)
[2019-05-04] MEDS: diphenhydrAMINE 25 MG CAP PO SCH ×3 (05:34→21:57)
[2019-05-04] MEDS: HYDROcodone/Acetaminophen 7.5/325 mg Tablet PO PRN ×2 (07:07→10:43)
[2019-05-04] MEDS: predniSONE 20 MG TAB PO SCH (09:16)
[2019-05-04] MEDS: Apixaban 5 MG TAB PO SCH ×2 (09:16→21:57)
[2019-05-04] MEDS: Insulin Glargine 30 UNITS in Pre-Filled Syringe 1 EACH SC SCH ×2 (09:16→21:59)
[2019-05-04] MEDS: Senokot S 8.6-50 MG TAB PO SCH ×2 (09:16→21:57)
[2019-05-04] MEDS: Polyethylene Glycol 3350 17 GM Packet PO SCH (09:16)
[2019-05-04] MEDS: Aspirin 81 mg Enteric Coated Tablet PO SCH (09:16)
[2019-05-04] MEDS: Furosemide 20 MG TAB PO SCH (09:17)
[2019-05-04] MEDS: HumaLOG 300 UNITS/3 ML VIAL SC SCH ×3 (10:19→17:26)
[2019-05-04 10:55] LABS: #Basophils 0.1 thou/uL (0.0-0.2); #Eosinphils 1.8 thou/uL (0.0-0.7); #Lymphocytes 3.5 thou/uL (1.20-3.40); #Monocytes 0.9 thou/uL (0.11-0.59); #Neutrophils 11.4 thou/uL (1.40-6.50); %Basophils 0.3 % (0.0-1.0); %Eosinophils 10.1 % (0.0-10.0); %Lymphocytes 19.7 % (21.0-51.0); %Neutrophils 64.9 % (42.0-75.0); Hemoglobin 13.1 g/dL (12.0-16.0); Mean Corpuscular HGB CONC 33.4 g/dL (32.0-36.0); Mean Corpuscular Hemoglobin 32.8 pg (27.0-31.0); Mean Platelet Volume 6.9 fL (7.4-10.4); Platelet Count 552 thou/uL (130-400); RBC Distribution Width 13.2 % (11.5-14.5); Red Blood Cell (RBC) Count 4.01 mill/uL (4.20-5.40); White Blood Cell (WBC) Count 17.5 thou/uL (4.8-10.8)
[2019-05-04 11:14] LABS: Anion Gap 15 mmol/L (10-20); BUN (Urea Nitrogen) 16 mg/dL (9.8-20.1); Calc. Creatinine Clearance 63 mL/min (70-130); Calcium 9.2 mg/dL (7.8-10.44); Carbon Dioxide 26 mmol/L (23-31); Chloride 98 mmol/L (98-107); Estimated GFR-MDRD 59; Glucose 204 mg/dL (83-110); Potassium 4.2 mmol/L (3.5-5.1); Sodium 135 mmol/L (136-145)
[2019-05-04] MEDS: Docusate 100 MG CAP PO PRN (14:02)
[2019-05-04] MEDS: traMADol HCl 50 MG TAB PO PRN (14:02)
--- NOTE | 2019-05-04 15:36 | PDOC.HOSPP ---
- Subjective Encounter Date: 05/04/19 Encounter Time: 15:33 Subjective: 88 y/o female with HTN, DM and bullous pemphigoid admitted with left leg pain and worsening bullous eruption on the skin. Found to have DVT and was started on anticoagulant. Also on steroid for bullous eruptions after initial hesitation due to hyperglycemic effect of steroid. No fever or skin redness. Flipped into atrial fib and back to SR earlier today. Denied chest pain or fever. - Objective Vital Signs & Weight: Vital Signs (12 hours) Temp Pulse Resp BP Pulse Ox 05/04/19 12:12 98.5 F 72 20 159/71 H 95 05/04/19 08:00 98 F 80 18 136/61 96 Weight Admit Weight 199 lb Weight 197 lb 6.4 oz I&O: 05/03/19 05/04/19 05/05/19 06:59 06:59 06:59 Intake Total 1820 3110 480 Output Total 400 Balance 1420 3110 480 Result Diagrams: 05/04/19 10:47 05/04/19 10:47 Additional Labs: Accuchecks 05/04/19 05/04/19 05/03/19 11:11 05:18 20:29 POC Glucose 198 H 113 H 360 H 05/03/19 16:46 POC Glucose 329 H ROS - Medication Medications: Active Medications Generic Name Dose Route Start Last Admin Trade Name Freq PRN Reason Stop Dose Admin Acetaminophen 650 mg 04/28/19 14:23 04/30/19 21:08 Tylenol PO 650 mg Q4H PRN Administration Headache/Fever/Mild Pain (1-3) Hydrocodone Bitart/Acetaminophen 1 tab 04/28/19 14:23 05/04/19 10:43 [place] 7.5/325 PO 1 tab Q4H PRN Administration Moderate Pain (4-6) Apixaban 5 mg 05/01/19 09:00 05/04/19 09:16 Eliquis PO 5 mg BID MARY Administration Aspirin 81 mg 04/29/19 09:00 05/04/19 09:16 Ecotrin PO 81 mg QAM MARY Administration Atorvastatin Calcium 20 mg 04/28/19 21:00 05/03/19 20:23 Lipitor PO 20 mg HS MARY Administration Diphenhydramine HCl 25 mg 04/30/19 22:00 05/04/19 13:55 Benadryl PO 25 mg Q8HR MARY Administration Docusate Sodium 100 mg 05/01/19 23:08 05/04/19 14:02 Colace PO 100 mg BID PRN Administration Constipation Furosemide 20 mg 04/29/19 09:00 05/04/19 09:17 Lasix PO 20 mg QAM MARY Administration Insulin Glargine 30 units/ 0.3 mls @ 0.2 mls/hr 05/02/19 21:00 05/04/19 09:16 Miscellaneous Medication SC 0.3 mls BID MARY Administration Insulin Human Lispro 0 units 05/02/19 08:37 05/02/19 21:29 Humalog SC 6 unit .MODERATE SLIDING SC PRN Administration Moderate Correctional Scale Insulin Human Lispro 0 units 05/03/19 21:07 05/03/19 21:37 Humalog SC 5 unit .BEDTIME SLIDING SC PRN Administration Bedtime Correctional Scale Insulin Human Lispro 6 units 05/04/19 08:16 05/04/19 12:15 Humalog SC 6 unit 1200 MARY Administration Levothyroxine Sodium 50 mcg 05/02/19 06:00 05/04/19 05:33 Synthroid PO 50 mcg 0600 MARY Administration Polyethylene Glycol 34 gm 04/30/19 09:00 05/04/19 09:16 Miralax PO 34 gm DAILY MARY Administration Prednisone 40 mg 05/02/19 09:00 05/04/19 09:16 Prednisone PO 40 mg DAILY MARY Administration Senna/Docusate Sodium 1 tab 04/29/19 09:00 05/04/19 09:16 Senokot S PO 1 tab BID MARY Administration Sodium Chloride 10 ml 05/02/19 09:00 05/04/19 09:17 Flush - Normal Saline IVF 10 ml Q12HR MARY Administration Tramadol HCl 50 mg 04/28/19 18:21 05/04/19 14:02 Ultram PO 50 mg Q12H PRN Administration Moderate Pain (4-6) Verapamil HCl 180 mg 04/29/19 21:00 05/03/19 20:32 Calan Er PO 180 mg HS MARY Administration Zolpidem Tartrate 5 mg 04/28/19 14:23 05/02/19 21:26 Ambien PO 5 mg HSPRN PRN Administration Insomnia - Exam awake alert Eye: PERRL, anicteric sclera ENT: normocephalic atraumatic Neck: supple Heart: RRR Respiratory: no wheezes, no rales, no ronchi Gastrointestinal: soft, non-tender, non-distended, normal bowel sounds Gastrointestinal - other findings: obese Extremities: 1+ LE edema Extremeties - other findings: Left leg edema noted Skin - other findings: scatered bullous eruptions and regressing erythemaouts plaques noted Neurological: CN's grossly intact, no focal deficits Psychiatric: A&O x 3 Hosp A/P (1) Deep vein thrombosis (DVT) of left lower extremity Code(s): I82.402 - ACUTE EMBOLISM AND THOMBOS UNSP DEEP VEINS OF L LOW EXTREM Status: Acute Qualifiers: Chronicity: acute (2) Bullous pemphigoid Code(s): L12.0 - BULLOUS PEMPHIGOID Status: Acute (3) 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 Code(s): I50.30 - UNSPECIFIED DIASTOLIC (CONGESTIVE) HEART FAILURE Status: Chronic Qualifiers: Congestive heart failure chronicity: chronic Qualified Code(s): I50.32 - Chronic diastolic (congestive) heart failure (4) HLD (hyperlipidemia) Code(s): E78.5 - HYPERLIPIDEMIA, UNSPECIFIED Status: Chronic (5) HTN (hypertension) Code(s): I10 - ESSENTIAL (PRIMARY) HYPERTENSION Status: Chronic Qualifiers: Hypertension type: essential hypertension Qualified Code(s): I10 - Essential (primary) hypertension (6) Hypothyroidism Code(s): E03.9 - HYPOTHYROIDISM, UNSPECIFIED Status: Chronic (7) Insulin dependent diabetes mellitus Code(s): E11.9 - TYPE 2 DIABETES MELLITUS WITHOUT COMPLICATIONS; Z79.4 - DETENTION (CURRENT) USE OF INSULIN Status: Chronic (8) Hyponatremia Code(s): E87.1 - HYPO-OSMOLALITY AND HYPONATREMIA Status: Acute (9) Hyperglycemia, drug-induced Code(s): R73.9 - HYPERGLYCEMIA, UNSPECIFIED; T50.905A - ADVERSE EFFECT OF UNSP DRUG/MEDS/BIOL SUBST, INIT Status: Acute (10) Physical deconditioning Code(s): R53.81 - OTHER MALAISE Status: Acute (11) Constipation Code(s): K59.00 - CONSTIPATION, UNSPECIFIED Status: Acute (12) Paroxysmal atrial fibrillation with RVR Code(s): I48.0 - PAROXYSMAL ATRIAL FIBRILLATION Status: Acute (13) Leukocytosis Code(s): D72.829 - ELEVATED WHITE BLOOD CELL COUNT, UNSPECIFIED Status: Resolved - Plan Continue oral prednisone 40 mg daily and insulin therapy Continue eliquis PT/OT eval and treat. get magnesium in the morning. Wound care to continue For discharge once placement is concluded likely in 2 days
[2019-05-04] MEDS: Atorvastatin Calcium 20 MG TAB PO SCH (21:57)
[2019-05-05] MEDS: HYDROcodone/Acetaminophen 7.5/325 mg Tablet PO PRN ×3 (00:51→20:58)
[2019-05-05] MEDS: Levothyroxine Sodium 50 MCG TAB PO SCH (05:17)
[2019-05-05] MEDS: diphenhydrAMINE 25 MG CAP PO SCH ×2 (05:17→14:12)
[2019-05-05] MEDS: traMADol HCl 50 MG TAB PO PRN ×2 (05:20→23:51)
[2019-05-05 06:50] LABS: #Eosinphils 1.7 thou/uL (0.0-0.7); #Lymphocytes 4.5 thou/uL (1.20-3.40); #Monocytes 0.9 thou/uL (0.11-0.59); #Neutrophils 8.8 thou/uL (1.40-6.50); %Basophils 0.3 % (0.0-1.0); %Eosinophils 10.7 % (0.0-10.0); %Lymphocytes 28.2 % (21.0-51.0); %Monocytes 5.6 % (0.0-10.0); %Neutrophils 55.2 % (42.0-75.0); Hemoglobin 12.8 g/dL (12.0-16.0); Mean Corpuscular HGB CONC 33.1 g/dL (32.0-36.0); Mean Corpuscular Hemoglobin 32.5 pg (27.0-31.0); Mean Corpuscular Volume 98.1 fL (78.0-98.0); Mean Platelet Volume 7.2 fL (7.4-10.4); Platelet Count 530 thou/uL (130-400); RBC Distribution Width 13.3 % (11.5-14.5); Red Blood Cell (RBC) Count 3.95 mill/uL (4.20-5.40); White Blood Cell (WBC) Count 15.9 thou/uL (4.8-10.8)
[2019-05-05 07:08] LABS: Anion Gap 14 mmol/L (10-20); BUN (Urea Nitrogen) 13 mg/dL (9.8-20.1); Calc. Creatinine Clearance 75 mL/min (70-130); Carbon Dioxide 25 mmol/L (23-31); Chloride 99 mmol/L (98-107); Estimated GFR-MDRD 72; Glucose 100 mg/dL (83-110); Magnesium 2.2 mg/dL (1.6-2.6); Potassium 3.8 mmol/L (3.5-5.1); Sodium 134 mmol/L (136-145)
[2019-05-05] MEDS: HumaLOG 300 UNITS/3 ML VIAL SC SCH ×3 (09:19→18:03)
[2019-05-05] MEDS: Insulin Glargine 30 UNITS in Pre-Filled Syringe 1 EACH SC SCH ×2 (09:19→20:53)
[2019-05-05] MEDS: Apixaban 5 MG TAB PO SCH ×2 (09:20→20:53)
[2019-05-05] MEDS: Polyethylene Glycol 3350 17 GM Packet PO SCH (09:20)
[2019-05-05] MEDS: Senokot S 8.6-50 MG TAB PO SCH ×2 (09:20→20:53)
[2019-05-05] MEDS: Furosemide 20 MG TAB PO SCH (09:20)
[2019-05-05] MEDS: predniSONE 20 MG TAB PO SCH (09:20)
[2019-05-05] MEDS: Aspirin 81 mg Enteric Coated Tablet PO SCH (09:20)
--- NOTE | 2019-05-05 14:03 | PDOC.HOSPP ---
- Subjective Encounter Date: 05/05/19 (n) Encounter Time: 09:01 Subjective: 88 y/o female with HTN, DM and bullous pemphigoid admitted with left leg pain and worsening bullous eruption on the skin. Found to have DVT and was started on anticoagulant. Also now on steroid for bullous eruptions after initial hesitation due to hyperglycemic effect of steroid. Flipped into atrial fib and back to SR on 05/04/2019. Denied chest pain or fever. still have some pruritus - Objective Vital Signs & Weight: Vital Signs (12 hours) Temp Pulse Resp BP BP Pulse Ox 05/05/19 12:00 97.8 F 85 16 120/59 L 96 05/05/19 09:15 98.2 F 98 18 139/62 96 05/05/19 03:32 97.8 F 89 18 158/67 H 95 Weight Admit Weight 199 lb Weight 198 lb 3.2 oz I&O: 05/04/19 05/05/19 05/06/19 06:59 06:59 06:59 Intake Total 3110 1900 240 Balance 3110 1900 240 Result Diagrams: 05/05/19 06:26 05/05/19 06:26 Additional Labs: Accuchecks 05/05/19 05/05/19 05/04/19 11:42 05:40 20:22 POC Glucose 162 H 84 281 H 05/04/19 16:54 POC Glucose 243 H ROS - Medication Medications: Active Medications Generic Name Dose Route Start Last Admin Trade Name Freq PRN Reason Stop Dose Admin Acetaminophen 650 mg 04/28/19 14:23 04/30/19 21:08 Tylenol PO 650 mg Q4H PRN Administration Headache/Fever/Mild Pain (1-3) Hydrocodone Bitart/Acetaminophen 1 tab 04/28/19 14:23 05/05/19 09:50 [place] 7.5/325 PO 1 tab Q4H PRN Administration Moderate Pain (4-6) Apixaban 5 mg 05/01/19 09:00 05/05/19 09:20 Eliquis PO 5 mg BID MARY Administration Aspirin 81 mg 04/29/19 09:00 05/05/19 09:20 Ecotrin PO 81 mg QAM MARY Administration Atorvastatin Calcium 20 mg 04/28/19 21:00 05/04/19 21:57 Lipitor PO 20 mg HS MARY Administration Diphenhydramine HCl 25 mg 04/30/19 22:00 05/05/19 05:17 Benadryl PO 25 mg Q8HR MARY Administration Docusate Sodium 100 mg 05/01/19 23:08 05/04/19 14:02 Colace PO 100 mg BID PRN Administration Constipation Furosemide 20 mg 04/29/19 09:00 05/05/19 09:20 Lasix PO 20 mg QAM MARY Administration Insulin Glargine 30 units/ 0.3 mls @ 0.2 mls/hr 05/02/19 21:00 05/05/19 09:19 Miscellaneous Medication SC 0.3 mls BID MARY Administration Insulin Human Lispro 0 units 05/02/19 08:37 05/02/19 21:29 Humalog SC 6 unit .MODERATE SLIDING SC PRN Administration Moderate Correctional Scale Insulin Human Lispro 0 units 05/03/19 21:07 05/03/19 21:37 Humalog SC 5 unit .BEDTIME SLIDING SC PRN Administration Bedtime Correctional Scale Insulin Human Lispro 6 units 05/04/19 08:16 05/04/19 17:26 Humalog SC 6 unit 1700 MARY Administration Insulin Human Lispro 6 units 05/04/19 08:16 05/04/19 12:15 Humalog SC 6 unit 1200 MARY Administration Insulin Human Lispro 6 units 05/04/19 08:16 05/05/19 09:19 Humalog SC Not Given 0800 MARY Levothyroxine Sodium 50 mcg 05/02/19 06:00 05/05/19 05:17 Synthroid PO 50 mcg 0600 MARY Administration Polyethylene Glycol 34 gm 04/30/19 09:00 05/05/19 09:20 Miralax PO 34 gm DAILY MARY Administration Prednisone 40 mg 05/02/19 09:00 05/05/19 09:20 Prednisone PO 40 mg DAILY MARY Administration Senna/Docusate Sodium 1 tab 04/29/19 09:00 05/05/19 09:20 Senokot S PO 1 tab BID MARY Administration Sodium Chloride 10 ml 05/02/19 09:00 05/05/19 09:21 Flush - Normal Saline IVF 10 ml Q12HR MARY Administration Tramadol HCl 50 mg 04/28/19 18:21 05/05/19 05:20 Ultram PO 50 mg Q12H PRN Administration Moderate Pain (4-6) Verapamil HCl 180 mg 04/29/19 21:00 05/04/19 21:57 Calan Er PO 180 mg HS MARY Administration Zolpidem Tartrate 5 mg 04/28/19 14:23 05/02/19 21:26 Ambien PO 5 mg HSPRN PRN Administration Insomnia - Exam awake alert Eye: anicteric sclera ENT: normocephalic atraumatic Neck: supple, symmetric Heart: RRR Respiratory: no wheezes, no rales, no ronchi Gastrointestinal: soft, non-tender, non-distended, normal bowel sounds Extremities: no cyanosis, 1+ LE edema Extremeties - other findings: left leg edema Skin - other findings: scattered bullous eruptions with many deroofed lesion and plaques Neurological: CN's grossly intact, no focal deficits Psychiatric: normal affect, A&O x 3 Hosp A/P (1) Deep vein thrombosis (DVT) of left lower extremity Code(s): I82.402 - ACUTE EMBOLISM AND THOMBOS UNSP DEEP VEINS OF L LOW EXTREM Status: Acute Qualifiers: Chronicity: acute (2) Bullous pemphigoid Code(s): L12.0 - BULLOUS PEMPHIGOID Status: Acute (3) 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 Code(s): I50.30 - UNSPECIFIED DIASTOLIC (CONGESTIVE) HEART FAILURE Status: Chronic Qualifiers: Congestive heart failure chronicity: chronic Qualified Code(s): I50.32 - Chronic diastolic (congestive) heart failure (4) HLD (hyperlipidemia) Code(s): E78.5 - HYPERLIPIDEMIA, UNSPECIFIED Status: Chronic (5) HTN (hypertension) Code(s): I10 - ESSENTIAL (PRIMARY) HYPERTENSION Status: Chronic Qualifiers: Hypertension type: essential hypertension Qualified Code(s): I10 - Essential (primary) hypertension (6) Hypothyroidism Code(s): E03.9 - HYPOTHYROIDISM, UNSPECIFIED Status: Chronic (7) Insulin dependent diabetes mellitus Code(s): E11.9 - TYPE 2 DIABETES MELLITUS WITHOUT COMPLICATIONS; Z79.4 - CORRECTION (CURRENT) USE OF INSULIN Status: Chronic (8) Hyponatremia Code(s): E87.1 - HYPO-OSMOLALITY AND HYPONATREMIA Status: Acute (9) Hyperglycemia, drug-induced Code(s): R73.9 - HYPERGLYCEMIA, UNSPECIFIED; T50.905A - ADVERSE EFFECT OF UNSP DRUG/MEDS/BIOL SUBST, INIT Status: Acute (10) Physical deconditioning Code(s): R53.81 - OTHER MALAISE Status: Acute (11) Constipation Code(s): K59.00 - CONSTIPATION, UNSPECIFIED Status: Acute (12) Paroxysmal atrial fibrillation with RVR Code(s): I48.0 - PAROXYSMAL ATRIAL FIBRILLATION Status: Acute (13) Leukocytosis Code(s): D72.829 - ELEVATED WHITE BLOOD CELL COUNT, UNSPECIFIED Status: Resolved - Plan Continue oral prednisone 40 mg daily and insulin therapy Continue eliquis PT/OT eval and treat. Wound care to continue For discharge tomorrow. either to SNF or home.
[2019-05-05] MEDS: Acetaminophen/Codeine 30-300mg Tablet PO PRN (14:11)
[2019-05-05] MEDS: Docusate 100 MG CAP PO PRN (14:12)
[2019-05-05] MEDS: diphenhydrAMINE 25 MG CAP PO PRN ×2 (14:12→20:58)
[2019-05-05] MEDS: Atorvastatin Calcium 20 MG TAB PO SCH (20:53)
[2019-05-05] MEDS: Zolpidem Tartrate 5 MG TAB PO PRN (23:51)
[2019-05-06] MEDS: Acetaminophen/Codeine 30-300mg Tablet PO PRN ×2 (02:39→09:49)
[2019-05-06] MEDS: diphenhydrAMINE 25 MG CAP PO PRN ×2 (02:39→19:46)
[2019-05-06 05:30] LABS: #Basophils 0.1 thou/uL (0.0-0.2); #Eosinphils 1.3 thou/uL (0.0-0.7); #Lymphocytes 3.8 thou/uL (1.20-3.40); #Monocytes 0.9 thou/uL (0.11-0.59); #Neutrophils 9.1 thou/uL (1.40-6.50); %Basophils 0.4 % (0.0-1.0); %Eosinophils 8.4 % (0.0-10.0); %Lymphocytes 25.2 % (21.0-51.0); %Monocytes 5.7 % (0.0-10.0); %Neutrophils 60.4 % (42.0-75.0); Hemoglobin 12.4 g/dL (12.0-16.0); Mean Corpuscular HGB CONC 31.9 g/dL (32.0-36.0); Mean Corpuscular Hemoglobin 30.9 pg (27.0-31.0); Mean Corpuscular Volume 96.8 fL (78.0-98.0); Mean Platelet Volume 7.1 fL (7.4-10.4); Platelet Count 551 thou/uL (130-400); White Blood Cell (WBC) Count 15.1 thou/uL (4.8-10.8)
[2019-05-06 05:50] LABS: Anion Gap 13 mmol/L (10-20); BUN (Urea Nitrogen) 18 mg/dL (9.8-20.1); Calc. Creatinine Clearance 64 mL/min (70-130); Calcium 8.7 mg/dL (7.8-10.44); Carbon Dioxide 26 mmol/L (23-31); Chloride 97 mmol/L (98-107); Estimated GFR-MDRD 59; Glucose 129 mg/dL (83-110); Potassium 4.1 mmol/L (3.5-5.1); Sodium 132 mmol/L (136-145)
[2019-05-06] MEDS: Levothyroxine Sodium 50 MCG TAB PO SCH (05:54)
[2019-05-06] MEDS: HYDROcodone/Acetaminophen 7.5/325 mg Tablet PO PRN ×2 (05:54→14:58)
[2019-05-06] MEDS: Polyethylene Glycol 3350 17 GM Packet PO SCH (07:38)
[2019-05-06] MEDS: Aspirin 81 mg Enteric Coated Tablet PO SCH (07:38)
[2019-05-06] MEDS: Apixaban 5 MG TAB PO SCH ×2 (07:38→19:46)
[2019-05-06] MEDS: predniSONE 20 MG TAB PO SCH (07:38)
[2019-05-06] MEDS: Senokot S 8.6-50 MG TAB PO SCH ×2 (07:39→19:46)
[2019-05-06] MEDS: Furosemide 20 MG TAB PO SCH (07:39)
[2019-05-06] MEDS: Insulin Glargine 30 UNITS in Pre-Filled Syringe 1 EACH SC SCH ×2 (09:44→19:46)
[2019-05-06] MEDS: HumaLOG 300 UNITS/3 ML VIAL SC SCH ×3 (09:46→17:48)
[2019-05-06] MEDS: HumaLOG 300 UNITS/3 ML VIAL SC PRN ×2 (11:29→17:48)
--- NOTE | 2019-05-06 15:24 | PDOC.HOSPP ---
- Subjective Encounter Date: 05/06/19 Encounter Time: 11:22 Subjective: 88 y/o female with HTN, DM and bullous pemphigoid admitted with left leg pain and worsening bullous eruption on the skin. Found to have DVT and was started on anticoagulant. Patient who initially declined escalation of steroid for bullous eruptions due to hyperglycemic effect of steroid later acceded to our plan and steroid was started. Flipped into atrial fib and back to on 2018. Denied chest pain or fever. Still have some pruritus. Feeling better overall. - Objective Vital Signs & Weight: Vital Signs (12 hours) Temp Pulse Resp BP Pulse Ox 05/06/19 11:50 97.8 F 75 16 144/76 H 97 05/06/19 07:36 97.9 F 86 16 169/66 H 98 05/06/19 04:00 97.7 F 64 16 138/80 96 Weight Admit Weight 199 lb Weight 198 lb 3.2 oz I&O: 05/05/19 05/06/19 05/07/19 06:59 06:59 06:59 Intake Total 1900 2140 Balance 1900 2140 Result Diagrams: 05/06/19 04:42 05/06/19 04:42 Additional Labs: Accuchecks 05/06/19 05/06/19 05/05/19 10:48 05:53 20:29 POC Glucose 254 H 86 275 H 05/05/19 16:57 POC Glucose 215 H ROS - Medication Medications: Active Medications Generic Name Dose Route Start Last Admin Trade Name Freq PRN Reason Stop Dose Admin Acetaminophen 650 mg 04/28/19 14:23 04/30/19 21:08 Tylenol PO 650 mg Q4H PRN Administration Headache/Fever/Mild Pain (1-3) Acetaminophen/Codeine Phosphate 1 tab 04/28/19 18:21 05/06/19 09:49 Tylenol #3 PO 1 tab Q6H PRN Administration Severe Pain (7-10) Hydrocodone Bitart/Acetaminophen 1 tab 04/28/19 14:23 05/06/19 14:58 [place] 7.5/325 PO 1 tab Q4H PRN Administration Moderate Pain (4-6) Apixaban 5 mg 05/01/19 09:00 05/06/19 07:38 Eliquis PO 5 mg BID MARY Administration Aspirin 81 mg 04/29/19 09:00 05/06/19 07:38 Ecotrin PO 81 mg QAM MARY Administration Atorvastatin Calcium 20 mg 04/28/19 21:00 05/05/19 20:53 Lipitor PO 20 mg HS MARY Administration Diphenhydramine HCl 25 mg 05/05/19 14:06 05/06/19 02:39 Benadryl PO 25 mg Q6H PRN Administration Itching Docusate Sodium 100 mg 05/01/19 23:08 05/05/19 14:12 Colace PO 100 mg BID PRN Administration Constipation Furosemide 20 mg 04/29/19 09:00 05/06/19 07:39 Lasix PO 20 mg QAM MARY Administration Insulin Glargine 30 units/ 0.3 mls @ 0.2 mls/hr 05/02/19 21:00 05/06/19 09:44 Miscellaneous Medication SC 0.3 mls BID MARY Administration Insulin Human Lispro 0 units 05/02/19 08:37 05/06/19 11:29 Humalog SC 6 unit .MODERATE SLIDING SC PRN Administration Moderate Correctional Scale Insulin Human Lispro 0 units 05/03/19 21:07 05/03/19 21:37 Humalog SC 5 unit .BEDTIME SLIDING SC PRN Administration Bedtime Correctional Scale Insulin Human Lispro 6 units 05/04/19 08:16 05/05/19 18:03 Humalog SC 6 unit 1700 MARY Administration Insulin Human Lispro 6 units 05/04/19 08:16 05/06/19 11:29 Humalog SC 6 unit 1200 MARY Administration Insulin Human Lispro 6 units 05/04/19 08:16 05/06/19 09:46 Humalog SC Not Given 0800 [facility] Levothyroxine Sodium 50 mcg 05/02/19 06:00 05/06/19 05:54 Synthroid PO 50 mcg 0600 MARY Administration Polyethylene Glycol 34 gm 04/30/19 09:00 05/06/19 07:38 Miralax PO 34 gm DAILY MARY Administration Prednisone 40 mg 05/02/19 09:00 05/06/19 07:38 Prednisone PO 40 mg DAILY MARY Administration Senna/Docusate Sodium 1 tab 04/29/19 09:00 05/06/19 07:39 Senokot S PO 1 tab BID MARY Administration Sodium Chloride 10 ml 05/02/19 09:00 05/06/19 09:47 Flush - Normal Saline IVF 10 ml Q12HR MARY Administration Tramadol HCl 50 mg 04/28/19 18:21 05/05/19 23:51 Ultram PO 50 mg Q12H PRN Administration Moderate Pain (4-6) Verapamil HCl 180 mg 04/29/19 21:00 05/05/19 20:53 Calan Er PO 180 mg HS MARY Administration Zolpidem Tartrate 5 mg 04/28/19 14:23 05/05/19 23:51 Ambien PO 5 mg HSPRN PRN Administration Insomnia - Exam awake alert General - other findings: obese Eye: anicteric sclera ENT: normocephalic atraumatic Neck: supple, symmetric Heart: RRR Heart - other findings: with frequent ectopics. Respiratory: no wheezes, no rales, no ronchi Gastrointestinal: soft, non-tender, non-distended, normal bowel sounds Extremities: no cyanosis Extremeties - other findings: mild L and trace R leg edema Skin - other findings: multiple bullous erution s of variable sizes, some deroofed and with scab Neurological: CN's grossly intact, no focal deficits Psychiatric: normal affect, normal behavior, A&O x 3 Hosp A/P (1) Deep vein thrombosis (DVT) of left lower extremity Code(s): I82.402 - ACUTE EMBOLISM AND THOMBOS UNSP DEEP VEINS OF L LOW EXTREM Status: Acute Qualifiers: Chronicity: acute (2) Bullous pemphigoid Code(s): L12.0 - BULLOUS PEMPHIGOID Status: Acute (3) 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 Code(s): I50.30 - UNSPECIFIED DIASTOLIC (CONGESTIVE) HEART FAILURE Status: Chronic Qualifiers: Congestive heart failure chronicity: chronic Qualified Code(s): I50.32 - Chronic diastolic (congestive) heart failure (4) HLD (hyperlipidemia) Code(s): E78.5 - HYPERLIPIDEMIA, UNSPECIFIED Status: Chronic (5) HTN (hypertension) Code(s): I10 - ESSENTIAL (PRIMARY) HYPERTENSION Status: Chronic Qualifiers: Hypertension type: essential hypertension Qualified Code(s): I10 - Essential (primary) hypertension (6) Hypothyroidism Code(s): E03.9 - HYPOTHYROIDISM, UNSPECIFIED Status: Chronic (7) Insulin dependent diabetes mellitus Code(s): E11.9 - TYPE 2 DIABETES MELLITUS WITHOUT COMPLICATIONS; Z79.4 - SHEET METAL ASSEMBLER AND RIVETER (CURRENT) USE OF INSULIN Status: Chronic (8) Hyponatremia Code(s): E87.1 - HYPO-OSMOLALITY AND HYPONATREMIA Status: Acute (9) Hyperglycemia, drug-induced Code(s): R73.9 - HYPERGLYCEMIA, UNSPECIFIED; T50.905A - ADVERSE EFFECT OF UNSP DRUG/MEDS/BIOL SUBST, INIT Status: Acute (10) Physical deconditioning Code(s): R53.81 - OTHER MALAISE Status: Acute (11) Constipation Code(s): K59.00 - CONSTIPATION, UNSPECIFIED Status: Acute (12) Paroxysmal atrial fibrillation with RVR Code(s): I48.0 - PAROXYSMAL ATRIAL FIBRILLATION Status: Acute (13) Leukocytosis Code(s): D72.829 - ELEVATED WHITE BLOOD CELL COUNT, UNSPECIFIED Status: Resolved - Plan Continue oral prednisone 40 mg daily and insulin therapy Continue eliquis Give additional 20 mg of lasix. monitor renal function PT/OT eval and treat. Wound care to continue For discharge once SNF/swing bed arrangement is concluded
[2019-05-06] MEDS ORDERED: Furosemide 20 MG TAB PO SCH (15:30)
[2019-05-06] MEDS: Atorvastatin Calcium 20 MG TAB PO SCH (19:45)
[2019-05-06] MEDS: traMADol HCl 50 MG TAB PO PRN (19:46)
[2019-05-07] MEDS: Levothyroxine Sodium 50 MCG TAB PO SCH (04:54)
[2019-05-07] MEDS: diphenhydrAMINE 25 MG CAP PO PRN ×3 (04:55→17:53)
[2019-05-07] MEDS: HYDROcodone/Acetaminophen 7.5/325 mg Tablet PO PRN ×2 (04:55→15:05)
[2019-05-07 04:56] LABS: #Lymphocytes 4.3 thou/uL (1.20-3.40); #Neutrophils 11.5 thou/uL (1.40-6.50); %Basophils 0.1 % (0.0-1.0); %Eosinophils 10.4 % (0.0-10.0); %Lymphocytes 22.9 % (21.0-51.0); %Monocytes 5.2 % (0.0-10.0); %Neutrophils 61.4 % (42.0-75.0); Mean Corpuscular HGB CONC 31.9 g/dL (32.0-36.0); Mean Corpuscular Hemoglobin 31.1 pg (27.0-31.0); Mean Corpuscular Volume 97.4 fL (78.0-98.0); Mean Platelet Volume 7.3 fL (7.4-10.4); Platelet Count 601 thou/uL (130-400); RBC Distribution Width 13.2 % (11.5-14.5); Red Blood Cell (RBC) Count 4.17 mill/uL (4.20-5.40); White Blood Cell (WBC) Count 18.8 thou/uL (4.8-10.8)
[2019-05-07 05:16] LABS: Anion Gap 15 mmol/L (10-20); BUN (Urea Nitrogen) 17 mg/dL (9.8-20.1); Calc. Creatinine Clearance 71 mL/min (70-130); Carbon Dioxide 28 mmol/L (23-31); Chloride 98 mmol/L (98-107); Estimated GFR-MDRD 67; Potassium 3.4 mmol/L (3.5-5.1); Sodium 138 mmol/L (136-145)
[2019-05-07 05:21] LABS: Glucose 46 mg/dL (83-110)
--- NOTE | 2019-05-07 05:49 | PDOC.EVN ---
Event Note - Event Note Event Note: RN called - Pt is hypoglycemic. Will reduce Lantus dose.
[2019-05-07] MEDS ORDERED: Potassium Chloride 20 MEQ TAB PO SCH (08:00)
[2019-05-07] MEDS: HumaLOG 300 UNITS/3 ML VIAL SC SCH ×2 (08:32→11:04)
[2019-05-07] MEDS: Polyethylene Glycol 3350 17 GM Packet PO SCH (08:33)
[2019-05-07] MEDS: Apixaban 5 MG TAB PO SCH (08:33)
[2019-05-07] MEDS: Aspirin 81 mg Enteric Coated Tablet PO SCH (08:33)
[2019-05-07] MEDS: Furosemide 20 MG TAB PO SCH (08:33)
[2019-05-07] MEDS: Senokot S 8.6-50 MG TAB PO SCH (08:36)
[2019-05-07] MEDS: predniSONE 20 MG TAB PO SCH (08:36)
[2019-05-07] MEDS ORDERED: Insulin Glargine 15 UNITS in Pre-Filled Syringe 1 EACH SC SCH (09:00)
[2019-05-07 11:54] VITALS: BMI 33.0
[2019-05-07 15:05] VITALS: BP 107/52; TEMP 98.8
--- NOTE | 2019-05-07 16:16 | PDOC.HOSPP ---
- Subjective Encounter Date: 05/07/19 Encounter Time: 16:14 Subjective: 88 y/o female with HTN, DM and bullous pemphigoid admitted with left leg pain and worsening bullous eruption on the skin. Found to have DVT and was started on anticoagulant. Patient who initially declined escalation of steroid for bullous eruptions due to hyperglycemic effect of steroid later acceded to our plan and steroid was started. Going in and out of atrial fib since 05/04/2019. Denied chest pain or fever. Still have some pruritus. Feeling better overall. - Objective Vital Signs & Weight: Vital Signs (12 hours) Temp Pulse Resp BP BP Pulse Ox 05/07/19 15:00 98.8 F 104 H 18 107/52 L 97 05/07/19 11:11 97.5 F L 88 18 97/56 L 96 05/07/19 07:21 97.6 F 73 19 112/54 L 94 L Weight Admit Weight 199 lb Weight 198 lb 3.2 oz I&O: 05/06/19 05/07/19 05/08/19 06:59 06:59 06:59 Intake Total 2140 1640 Balance 2140 1640 Result Diagrams: 05/07/19 04:22 05/07/19 04:22 Additional Labs: Accuchecks 05/07/19 05/07/19 05/07/19 11:39 11:01 06:30 POC Glucose 142 H 54 L* 130 H 05/07/19 05/06/19 05/06/19 05:30 20:44 16:46 POC Glucose 62 L 128 H 278 H ROS - Medication Medications: Active Medications Generic Name Dose Route Start Last Admin Trade Name Freq PRN Reason Stop Dose Admin Acetaminophen 650 mg 04/28/19 14:23 04/30/19 21:08 Tylenol PO 650 mg Q4H PRN Administration Headache/Fever/Mild Pain (1-3) Acetaminophen/Codeine Phosphate 1 tab 04/28/19 18:21 05/06/19 09:49 Tylenol #3 PO 1 tab Q6H PRN Administration Severe Pain (7-10) Hydrocodone Bitart/Acetaminophen 1 tab 04/28/19 14:23 05/07/19 15:05 [place] 7.5/325 PO 1 tab Q4H PRN Administration Moderate Pain (4-6) Apixaban 5 mg 05/01/19 09:00 05/07/19 08:33 Eliquis PO 5 mg BID MARY Administration Aspirin 81 mg 04/29/19 09:00 05/07/19 08:33 Ecotrin PO 81 mg QAM MARY Administration Atorvastatin Calcium 20 mg 04/28/19 21:00 05/06/19 19:45 Lipitor PO 20 mg HS MARY Administration Diphenhydramine HCl 25 mg 05/05/19 14:06 05/07/19 10:56 Benadryl PO 25 mg Q6H PRN Administration Itching Docusate Sodium 100 mg 05/01/19 23:08 05/05/19 14:12 Colace PO 100 mg BID PRN Administration Constipation Furosemide 20 mg 04/29/19 09:00 05/07/19 08:33 Lasix PO 20 mg QAM MARY Administration Insulin Glargine 15 units/ 0.15 mls @ 0 mls/hr 05/07/19 09:00 05/07/19 08:32 Miscellaneous Medication SC 0.15 mls BID MARY Administration Insulin Human Lispro 0 units 05/02/19 08:37 05/06/19 17:48 Humalog SC 6 unit .MODERATE SLIDING SC PRN Administration Moderate Correctional Scale Levothyroxine Sodium 50 mcg 05/02/19 06:00 05/07/19 04:54 Synthroid PO 50 mcg 0600 MARY Administration Polyethylene Glycol 34 gm 04/30/19 09:00 05/07/19 08:33 Miralax PO 34 gm DAILY MARY Administration Prednisone 40 mg 05/02/19 09:00 05/07/19 08:36 Prednisone PO 40 mg DAILY MARY Administration Senna/Docusate Sodium 1 tab 04/29/19 09:00 05/07/19 08:36 Senokot S PO 1 tab BID MARY Administration Sodium Chloride 10 ml 05/02/19 09:00 05/07/19 08:45 Flush - Normal Saline IVF Not Given Q12HR MARY Tramadol HCl 50 mg 04/28/19 18:21 05/06/19 19:46 Ultram PO 50 mg Q12H PRN Administration Moderate Pain (4-6) Verapamil HCl 180 mg 04/29/19 21:00 05/06/19 19:45 [place] PO 180 mg HS MARY Administration Zolpidem Tartrate 5 mg 04/28/19 14:23 05/05/19 23:51 Ambien PO 5 mg HSPRN PRN Administration Insomnia - Exam awake alert Eye: anicteric sclera ENT: normocephalic atraumatic Neck: supple, symmetric Heart: RRR Respiratory: no wheezes, no rales, no ronchi Gastrointestinal: soft, non-tender, non-distended, normal bowel sounds Extremeties - other findings: Mild left leg edema Skin - other findings: regressing scattered bullous erutions with some deroofed. Neurological: CN's grossly intact, no focal deficits Psychiatric: normal affect, A&O x 3 Hosp A/P (1) Deep vein thrombosis (DVT) of left lower extremity Code(s): I82.402 - ACUTE EMBOLISM AND THOMBOS UNSP DEEP VEINS OF L LOW EXTREM Status: Acute Qualifiers: Chronicity: acute (2) Bullous pemphigoid Code(s): L12.0 - BULLOUS PEMPHIGOID Status: Acute (3) 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 Code(s): I50.30 - UNSPECIFIED DIASTOLIC (CONGESTIVE) HEART FAILURE Status: Chronic Qualifiers: Congestive heart failure chronicity: chronic Qualified Code(s): I50.32 - Chronic diastolic (congestive) heart failure (4) HLD (hyperlipidemia) Code(s): E78.5 - HYPERLIPIDEMIA, UNSPECIFIED Status: Chronic (5) HTN (hypertension) Code(s): I10 - ESSENTIAL (PRIMARY) HYPERTENSION Status: Chronic Qualifiers: Hypertension type: essential hypertension Qualified Code(s): I10 - Essential (primary) hypertension (6) Hypothyroidism Code(s): E03.9 - HYPOTHYROIDISM, UNSPECIFIED Status: Chronic (7) Insulin dependent diabetes mellitus Code(s): E11.9 - TYPE 2 DIABETES MELLITUS WITHOUT COMPLICATIONS; Z79.4 - CLIENT SERVICE ADMINISTRATOR (CURRENT) USE OF INSULIN Status: Chronic (8) Hyponatremia Code(s): E87.1 - HYPO-OSMOLALITY AND HYPONATREMIA Status: Acute (9) Hyperglycemia, drug-induced Code(s): R73.9 - HYPERGLYCEMIA, UNSPECIFIED; T50.905A - ADVERSE EFFECT OF UNSP DRUG/MEDS/BIOL SUBST, INIT Status: Acute (10) Physical deconditioning Code(s): R53.81 - OTHER MALAISE Status: Acute (11) Constipation Code(s): K59.00 - CONSTIPATION, UNSPECIFIED Status: Acute (12) Paroxysmal atrial fibrillation with RVR Code(s): I48.0 - PAROXYSMAL ATRIAL FIBRILLATION Status: Acute (13) Leukocytosis Code(s): D72.829 - ELEVATED WHITE BLOOD CELL COUNT, UNSPECIFIED Status: Resolved - Plan DC bed time insulin and schedule meal time humalog. Will treat according to sliding scale only. Replete serum potassium. Continue oral prednisone 40 mg daily Continue eliquis Will discharge patient today. Need to keep appointment with Allocations Clerk tomorrow. resume home health.
--- NOTE | 2019-05-07 17:16 | DIS ---
DATE OF ADMISSION: 04/28/2019 DATE OF DISCHARGE: 05/07/2019 PRIMARY CARE PHYSICIAN: Alessandra Espinal MD DISCHARGE DIAGNOSES: 1. Acute deep vein thrombosis of left lower extremity. 2. 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 3. Paroxysmal atrial fibrillation with rapid ventricular response. 4. Hypoglycemia related to insulin use. 5. Constipation. 6. Leukocytosis. 7. Hyponatremia. 8. Hypothyroidism. 9. Insulin-dependent diabetes mellitus. 10. Physical deconditioning. 11. Hyperlipidemia. 12. Chronic diastolic heart failure. HOSPITAL COURSE: An 88-year-old female with known history of insulin-dependent diabetes, bullous pemphigoid, hypertension, and others, admitted with worsening left leg swelling as well as bullous eruptions of the skin. Evaluation with venous Doppler showed acute DVT involving the left lower extremity. The patient was started on anticoagulation with Lovenox, which was later transitioned to oral anticoagulant, Eliquis. The patient with prior history of bullous pemphigoid, being treated with oral steroids, but was weaned off oral steroid due to hyperglycemia, reportedly developed worsening eruptions during the time of development of left leg swelling. Hence, she was told that the acute DVT and weaning of steroid triggered massive eruptions involving the skin. Steroid therapy was initially discussed with the patient and relatives, but they declined systemic steroid due to hyperglycemia. The patient was initially treated with topical steroids with no improvement, hence following discussion again with family, they agreed to systemic steroid and the patient was treated with systemic steroid with improvement. She developed multiple and scattered bullous eruptions involving all the body except the face. She also was noted to have erythematous papules and plaques all over the body. Bullous eruptions started drying out with some deroofing, forming some crust, but there was no fever or cellulitis. The patient also was found to have physical deconditioning and gait instability related to involvement of the left lower extremity and feet and was seen by PT and OT with improvement. Hospital course also was complicated by development of paroxysmal atrial fibrillation with RVR. Rate was adequately controlled. The patient already was on anticoagulation. She reportedly had prior history of atrial fibrillation during hospitalization in [place], but for unclear reason, was not started on anticoagulation. The patient improved and was to be discharged to a swing bed, but due to delays related to insurance and given the fact that the patient has an appointment with loan officer on May 08, the patient was discharged home with Home Health to facilitate meeting with the loan officer. DISCHARGE CONDITION: Improving. DISCHARGE DISPOSITION: Home with Home Health. DISCHARGE MEDICATIONS: 1. Ergocalciferol 5000 units every Monday. 2. Aspirin 81 mg p.o. daily. 3. Calcium with vitamin D 1 tablet p.o. b.i.d. 4. Levothyroxine 50 mcg p.o. daily. 5. Linzess 145 mcg p.o. daily. 6. Niacin 100 mg p.o. b.i.d. 7. MiraLAX 34 g p.o. daily. 8. Verapamil 180 mg p.o. daily at bedtime. 9. Eliquis 5 mg p.o. b.i.d. 10. Lipitor 20 mg p.o. daily at bedtime. 11. Diphenhydramine 25 mg q.6 p.r.n. for itching. 12. Furosemide 20 mg p.o. daily. 13. Humalog 0 to 15 units according to sliding scale provided for hyperglycemia. 14. Insulin glargine 45 units subcutaneously daily. 15. Prednisone 40 mg p.o. daily. 16. Tramadol 50 mg q.8 p.r.n. for moderate to severe pain. TIME SPENT: This discharge took more than 38 minutes. Job ID: [id number]
[2019-05-07] MEDS: HumaLOG 300 UNITS/3 ML VIAL SC PRN (17:50)
[2019-05-07] MEDS: traMADol HCl 50 MG TAB PO PRN (17:53)
== END 2019-05-07 19:50 | disposition home health service (06) | DRG 300 ==
LOC: ERS 11:11 → 2NO 13:44
PROVIDERS: ADMIT Internal Medicine; ATTEND Internal Medicine
DX: I82.432 Acute embolism and thrombosis of left popliteal vein (principal); L12.0 Bullous pemphigoid; E87.1 Hypo-osmolality and hyponatremia; I50.32 Chronic diastolic (congestive) heart failure; I11.0 Hypertensive heart disease with heart failure; Z51.5 Encounter for palliative care; E78.5 Hyperlipidemia, unspecified; E03.9 Hypothyroidism, unspecified; E66.9 Obesity, unspecified; D64.9 Anemia, unspecified; K59.00 Constipation, unspecified; I48.0 Paroxysmal atrial fibrillation; D72.829 Elevated white blood cell count, unspecified; T38.0X5A Adverse effect of glucocorticoids and synthetic analogues, initial encounter; E11.65 Type 2 diabetes mellitus with hyperglycemia; E11.649 Type 2 diabetes mellitus with hypoglycemia without coma; T38.3X5A Adverse effect of insulin and oral hypoglycemic [antidiabetic] drugs, initial encounter; Z79.01 Long term (current) use of anticoagulants; Z79.82 Long term (current) use of aspirin; Z79.4 Long term (current) use of insulin; Z88.8 Allergy status to other drugs, medicaments and biological substances; Z79.52 Long term (current) use of systemic steroids; Z79.899 Other long term (current) drug therapy; Z88.2 Allergy status to sulfonamides; Z68.33 Body mass index [BMI] 33.0-33.9, adult
CPT/HCPCS: 36415; 36416; 80048; 80053; 83605; 83735; 85025; 85379; 85610; 85730; 87040; 93005; 96372; J1610; J1650; J1815; J2930; J7512; Q0163